=== PATIENT | female | born 1950 | race Caucasian/White ===

== ENCOUNTER 2016-09-20 12:19 | Emergency (ER) | payer BC ==
[2016-09-20 12:33] VITALS: RESP 18; TEMP 98.1
--- NOTE | 2016-09-20 13:35 | CT ---
EXAMINATION TYPE: CT brain [place] con DATE OF EXAM: 09/20/2016 COMPARISON: 02/09/2016 HISTORY: Fell backwards and struck back of head CT DLP: 1719 mGycm Automated exposure control for dose reduction was used. TECHNIQUE: CT scan of the head and cervical spine are performed without contrast. FINDINGS: There is no acute intracranial hemorrhage, mass effect, or midline shift identified. The ventricles and sulci are within normal limits in size. The globes are intact and the visualized sin uses are clear. Hyperostosis noted. Minimal nonspecific periventricular hypoattenuation. Noncontrast imaging artifact limits assessment spinal canal. Alignment demonstrates severe degenerati ve disc disease C5-C6 and C6-C7 with posterior spondylosis. Canal stenosis and foraminal encroachment suggested correlate with MRI. Odontoid intact. Multilevel facet arthropathy noted. IMPRESSION: 1. There is no acute fracture or dislocation evident in the cervical spine. 2. No acute intracranial hemorrhage, mass effect, or midline shift is seen.
--- NOTE | 2016-09-20 13:36 | ED ---
General Adult HPI - General Chief complaint: Head Injury Stated complaint: Fall/Head Injury Time Seen by Provider: 09/20/16 12:34 Source: patient, RN notes reviewed, old records reviewed Mode of arrival: ambulatory Limitations: no limitations - History of Present Illness Initial comments: This is a 66-year-old female here status post fall, 2 days post fall and hitting head. Patient's vitals conscious at the time out, just increase had neck pain since fall. No neurological changes. No nausea vomiting again. - Related Data Home Medications Medication Instructions Recorded Confirmed Ascorbic Acid [Vitamin C] 1,000 mg PO DAILY 10/31/15 09/20/16 Atorvastatin [Lipitor] 40 mg PO HS 10/31/15 09/20/16 Cholecalciferol [Vitamin D3] 1,000 unit PO DAILY 10/31/15 09/20/16 Diltiazem HCl [Cardizem Cd] 120 mg PO BID 10/31/15 09/20/16 Glimepiride [Amaryl] 2 mg PO DAILY 10/31/15 09/20/16 Losartan [Cozaar] 50 mg PO DAILY 10/31/15 09/20/16 metFORMIN HCL 1,000 mg PO BID 10/31/15 09/20/16 Aspirin [Adult Low Dose Aspirin EC] 81 mg PO HS 03/20/16 09/20/16 Clopidogrel [Plavix] 75 mg PO DAILY 03/20/16 09/20/16 Fiber Therapy 50 mg PO DAILY 03/20/16 09/20/16 Isosorbide Mononitrate ER [Imdur] 30 mg PO DAILY 03/20/16 09/20/16 Allergies Allergy/AdvReac Type Severity Reaction Status Date / Time hydrocodone [From [place]] Allergy Nausea & Verified 09/20/16 12:35 Vomiting Sulfa (Sulfonamide Allergy Itching,fev Verified 09/20/16 12:35 Antibiotics) er tramadol Allergy Hallucinati Verified 09/20/16 12:35 ons Review of Systems ROS Statement: Those systems with pertinent positive or pertinent negative responses have been documented in the HPI. ROS Other: All systems not noted in ROS Statement are negative. Past Medical History Past Medical History: Chest Pain / Angina, Diabetes Mellitus, Hyperlipidemia, Myocardial Infarction ([place]), Osteoarthritis ([place]) Additional Past Medical History / Comment(s): "heart spasms"-"small heart attack ", Last Myocardial Infarction Date:: 11/2015 History of Any Multi-Drug Resistant Organisms: None Reported Past Surgical History: Appendectomy, Cholecystectomy, Heart Catheterization, Hysterectomy, Joint Replacement, Orthopedic Surgery Additional Past Surgical History / Comment(s): arthroscopy left knee x3, rt hand joint replacement- ring finger, D&C, left knee replacement, left hand ganglion cyst Past Anesthesia/Blood Transfusion Reactions: Motion Sickness, Postoperative Nausea & Vomiting (PONV) Past Psychological History: No Psychological Hx Reported Smoking Status: Former smoker Past Alcohol Use History: Rare Past Drug Use History: None Reported - Past Family History Mother Family Medical History: No Reported History Sister(s) Family Medical History: Cancer, Deep Vein Thrombosis (DVT) General Exam Limitations: no limitations General appearance: alert, in no apparent distress Head exam: Present: atraumatic, normocephalic, normal inspection Eye exam: Present: normal appearance, PERRL, EOMI. Absent: scleral icterus, conjunctival injection, periorbital swelling ENT exam: Present: normal exam, mucous membranes moist Neck exam: Present: normal inspection. Absent: tenderness, meningismus, lymphadenopathy Respiratory exam: Present: normal lung sounds bilaterally. Absent: respiratory distress, wheezes, rales, rhonchi, stridor Cardiovascular Exam: Present: regular rate, normal rhythm, normal heart sounds. Absent: systolic murmur, diastolic murmur, rubs, gallop, clicks GI/Abdominal exam: Present: soft, normal bowel sounds. Absent: distended, tenderness, guarding, rebound, rigid Extremities exam: Present: normal inspection, full ROM, normal capillary refill. Absent: tenderness, pedal edema, joint swelling, calf tenderness Back exam: Present: normal inspection Neurological exam: Present: alert, oriented X3, CN II-XII intact Psychiatric exam: Present: normal affect, normal mood Skin exam: Present: warm, dry, intact, normal color. Absent: rash Course Vital Signs 09/20/16 12:30 Temperature 98.1 F Pulse Rate 72 Respiratory 18 Rate Blood Pressure 111/56 O2 Sat by Pulse 97 Oximetry Medical Decision Making - Medical Decision Making 66 female the ER for evaluation. Patient just reevaluation of headache. Headache status post fall, concussive like symptoms. CT negative for acute disease. Patient can be discharged home Disposition Clinical Impression: Closed head injury, Fall Disposition: HOME SELF-CARE Condition: Good Instructions: Concussion (ED) Referrals: Maurice Garcia MD [Primary Care Provider] - 1-2 days
[2016-09-20 13:49] VITALS: BP 101/49; PULSE 63
== END 2016-09-20 13:49 | disposition home or self-care (01) ==
LOC: EC 12:19
DX: S09.90XA Unspecified injury of head, initial encounter (principal); M54.2 Cervicalgia; E11.9 Type 2 diabetes mellitus without complications; E78.5 Hyperlipidemia, unspecified; I25.2 Old myocardial infarction; M19.90 Unspecified osteoarthritis, unspecified site; Z87.891 Personal history of nicotine dependence; Z79.84 Long term (current) use of oral hypoglycemic drugs; Z79.82 Long term (current) use of aspirin; Z79.01 Long term (current) use of anticoagulants; Z79.899 Other long term (current) drug therapy; Z88.2 Allergy status to sulfonamides; Z88.6 Allergy status to analgesic agent; Z88.5 Allergy status to narcotic agent; W01.10XA Fall on same level from slipping, tripping and stumbling with subsequent striking against unspecified object, initial encounter
CPT/HCPCS: 36415; 70450; 72125; 74177; 82565; 84520; 99284

== ENCOUNTER → 2016-09-20 | Outpatient (CLI) | payer BC ==
[2016-09-20 14:42] LABS: Blood Urea Nitrogen 28 mg/dL (7-17); Non-African American GFR(MDRD) 59 (>60 ml/min/1.73 sqM)
--- NOTE | 2016-09-20 16:11 | CT ---
EXAMINATION TYPE: CT abdomen pelvis w con DATE OF EXAM: 09/20/2016 COMPARISON: 02/14/2016 HISTORY: Follow up pancreatic cyst per patient CT DLP: 963.6 mGycm Automated exposure control for dose reduction was used. CONTRAST: CT scan of the abdomen pelvis is performed with IV Contrast, patient injected with 80 mL of Visipaque 320. FINDINGS- LUNG BASES- No significant abnormality is appreciated. LIVER/GB-postcholecystectomy changes. PANCREAS-hypodensity within the pancreatic head and uncinate process are stable. SPLEEN- No gross abnormality is seen. ADRENALS- No gross abnormality is seen. KIDNEYS/BLADDER- no hydronephrosis, or nephrolithiasis. Stable small hypodensities within both kidney s too small to accurately characterize by CT scan. BOWEL- no bowel dilatation. Normal appendix. LYMPH NODES- No greater than 1cm abdominal or pelvic lymph nodes are appreciated. OSSEOUS STRUCTURES-hypertrophic changes of the vertebral column.. OTHER- mild atherosclerotic changes of the vasculature. Aorta of normal caliber. No free fluid. Post hysterectomy changes noted. IMPRESSION- 1. Hypodensities within the pancreas are stable. No definite mass identified. Correlate clinically. F ollow-up as clinically warranted. 2. Tiny hypodensities in the kidneys too small to characterize but likely related to simple cysts. 3. Status post cholecystectomy.
== END | disposition home or self-care (01) ==
LOC: RADCTMAIN 13:58
PROVIDERS: ATTEND Surgery Plastic and Reconstructive Surgery
DX: R93.421 Abnormal radiologic findings on diagnostic imaging of right kidney (principal); R93.422 Abnormal radiologic findings on diagnostic imaging of left kidney; R93.8 Abnormal findings on diagnostic imaging of other specified body structures; Z90.49 Acquired absence of other specified parts of digestive tract
CPT/HCPCS: 82565; 84520; 74177; 36415; Q9967

== ENCOUNTER → 2016-12-05 | Outpatient (CLI) | payer BC ==
--- NOTE | 2016-12-06 09:21 | MM ---
Reason for exam: screening (asymptomatic). Last mammogram was performed 2 years ago. History: Patient is postmenopausal. Excisional biopsy of the left breast. Took estrogen for 15 years. Physical Findings: A clinical breast exam by your physician is recommended on an annual basis and results should be correlated with mammographic findings. MG Screening Mammo w CAD Bilateral CC, MLO, and XCCL view(s) were taken. XCCM view(s) were taken of the left breast. Prior study comparison: December 08, 2014, bilateral MG screening mammo w CAD. May 19, 2013, bilateral digital screening mammo w/CAD. There are scattered fibroglandular densities. Finding: There are typically benign round, diffuse/scattered and grouped calcifications in both breasts. There is a chronic nodularity in the left breast. There is no discrete abnormality. ASSESSMENT: Benign, BI-RAD 2 RECOMMENDATION: Routine screening mammogram of both breasts in 1 year.
== END | disposition home or self-care (01) ==
LOC: RADMAMWWP 10:48
PROVIDERS: ATTEND Family Medicine
DX: Z12.31 Encounter for screening mammogram for malignant neoplasm of breast (principal)

== ENCOUNTER → 2017-04-02 | Outpatient (CLI) | payer BC ==
[2017-04-02 12:17] LABS: Blood Urea Nitrogen 16 mg/dL (7-17); Non-African American GFR(MDRD) >60 (>60 ml/min/1.73 sqM)
--- NOTE | 2017-04-02 13:42 | CT ---
EXAMINATION TYPE: CT abdomen w con DATE OF EXAM: 04/02/2017 HISTORY: Follow up for abnormal CT of pancreas. CT DLP: 1327mGycm Automated Exposure Control for Dose Reduction was Utilized. CONTRAST: CT scan of the abdomen and pelvis is performed with oral and with IV Contrast, patient injected with 100ml mL of Omnipaque 300. Pancreatic protocol. COMPARISON: CT abdomen and pelvis September 20, 2016 FINDINGS: LUNG BASES: No significant abnormality is appreciated. LIVER/GB: Cholecystectomy clips are redemonstrated. PANCREAS: Pancreas is normal in size. No worrisome solid or cystic mass is clearly identified in the pancreas on current study with particular attention to head and uncinate process SPLEEN: No significant abnormality is seen. ADRENALS: No significant abnormality is seen. KIDNEYS: There are few scattered subcentimeter lesions throughout both kidneys redemonstrated too sma ll to further characterize but presumed benign. BOWEL: Oral contrast does not reach colonic level. No suspicious abnormality is seen. LYMPH NODES: No greater than 1cm abdominal lymph nodes are appreciated. OSSEOUS STRUCTURES: Mild multilevel anterior spurring is redemonstrated. OTHER: There is mild calcified plaque in aortic extending into iliac branch vessels IMPRESSION: No worrisome pancreatic mass identified.
== END | disposition home or self-care (01) ==
LOC: RADCTMAIN 11:45
PROVIDERS: ATTEND Family Medicine
DX: R93.5 Abnormal findings on diagnostic imaging of other abdominal regions, including retroperitoneum (principal)
CPT/HCPCS: 82565; 84520; 74160; 36415; Q9967

== ENCOUNTER → 2017-12-15 | Outpatient (CLI) | payer BC ==
--- NOTE | 2017-12-15 08:22 | MM ---
Reason for exam: screening (asymptomatic). Last mammogram was performed 1 year ago. History: Patient is postmenopausal. Excisional biopsy of the left breast. Took estrogen for 15 years. Physical Findings: A clinical breast exam by your physician is recommended on an annual basis and results should be correlated with mammographic findings. MG Screening Mammo w CAD Bilateral CC and MLO view(s) were taken. Prior study comparison: December 05, 2016, bilateral MG screening mammo w CAD. December 08, 2014, bilateral MG screening mammo w CAD. There are scattered fibroglandular densities. There are stable benign appearing punctate calcifications. No significant changes when compared with prior studies. ASSESSMENT: Benign, BI-RAD 2 RECOMMENDATION: Routine screening mammogram of both breasts in 1 year.
== END | disposition home or self-care (01) ==
LOC: RADMAMWWP 06:50
PROVIDERS: ATTEND Family Medicine
DX: Z12.31 Encounter for screening mammogram for malignant neoplasm of breast (principal)
CPT/HCPCS: 77067

== ENCOUNTER 2018-02-23 09:00 | Inpatient (IN) | payer BC, MEDICARE ==
[2018-02-23] MEDS ORDERED: SODIUM CHLORIDE 0.9% 500 ML 500 ML IV STA (09:04)
[2018-02-23] MEDS ORDERED: NITROGLYCERIN OINT 1 INCH/GM PACKET TOPICAL STA (09:04)
--- NOTE | 2018-02-23 09:09 | ED ---
General Adult HPI - General Stated complaint: poss STEMI Time Seen by Provider: 02/23/18 09:00 Source: RN notes reviewed - History of Present Illness Initial comments: This is a 67-year-old female presents emergency department with past medical history significant for diabetes and coronary artery disease high blood pressure high cholesterol. Patient states few hours prior to arrival she started having chest pain which was associated with shortness of breath nausea and diaphoresis. Patient states before EMS arrived she took nitroglycerin and it didn't seem to help her pain. Patient states over the weekend she was having some chest pain particular Friday night and it radiated to her back. Patient states those symptoms and certainly it resolved on the right. Patient states she has had a catheterization a couple years ago the toes she did have about a 30% blockage. Patient states currently her pain is much improved compared to earlier. Patient denies any abdominal pain. Patient denies any vomiting or diarrhea recently. Patient denies any recent fever chills or cough. Patient denies headache patient denies lightheadedness dizziness or nursing episode. - Related Data Home Medications Medication Instructions Recorded Confirmed Ascorbic Acid [Vitamin C] 1,000 mg PO DAILY 10/31/15 09/20/16 Atorvastatin [Lipitor] 40 mg PO HS 10/31/15 09/20/16 Cholecalciferol [Vitamin D3] 1,000 unit PO DAILY 10/31/15 09/20/16 Diltiazem HCl [Cardizem Cd] 120 mg PO BID 10/31/15 09/20/16 Glimepiride [Amaryl] 2 mg PO DAILY 10/31/15 09/20/16 Losartan [Cozaar] 50 mg PO DAILY 10/31/15 09/20/16 metFORMIN HCL 1,000 mg PO BID 10/31/15 09/20/16 Aspirin [Adult Low Dose Aspirin EC] 81 mg PO HS 03/20/16 09/20/16 Clopidogrel [Plavix] 75 mg PO DAILY 03/20/16 09/20/16 Fiber Therapy 50 mg PO DAILY 03/20/16 09/20/16 Isosorbide Mononitrate ER [Imdur] 30 mg PO DAILY 03/20/16 09/20/16 Allergies Allergy/AdvReac Type Severity Reaction Status Date / Time hydrocodone [From [place]] Allergy Nausea & Verified 09/20/16 12:35 Vomiting Sulfa (Sulfonamide Allergy Itching,fev Verified 09/20/16 12:35 Antibiotics) er tramadol Allergy Hallucinati Verified 09/20/16 12:35 ons Review of Systems ROS Statement: Those systems with pertinent positive or pertinent negative responses have been documented in the HPI. ROS Other: All systems not noted in ROS Statement are negative. Past Medical History Past Medical History: Chest Pain / Angina, Diabetes Mellitus, Hyperlipidemia, Myocardial Infarction ([place]), Osteoarthritis (OA) Additional Past Medical History / Comment(s): "heart spasms"-"small heart attack ", Last Myocardial Infarction Date:: 11/2015 History of Any Multi-Drug Resistant Organisms: None Reported Past Surgical History: Appendectomy, Cholecystectomy, Heart Catheterization, Hysterectomy, Joint Replacement, Orthopedic Surgery Additional Past Surgical History / Comment(s): arthroscopy left knee x3, rt hand joint replacement- ring finger, D&C, left knee replacement, left hand ganglion cyst Past Anesthesia/Blood Transfusion Reactions: Motion Sickness, Postoperative Nausea & Vomiting (PONV) Past Psychological History: No Psychological Hx Reported Smoking Status: Former smoker Past Alcohol Use History: Rare Past Drug Use History: None Reported - Past Family History Mother Family Medical History: No Reported History Sister(s) Family Medical History: Cancer, Deep Vein Thrombosis (DVT) General Exam - General Exam Comments Initial Comments: GENERAL: Patient is well-developed and well-nourished. Patient is nontoxic and well- hydrated and is in mild distress. ENT: Neck is soft and supple. No significant lymphadenopathy is noted. Oropharynx is clear. Moist mucous membranes. Neck has full range of motion without eliciting any pain. EYES: The sclera were anicteric and conjunctiva were pink and moist. Extraocular movements were intact and pupils were equal round and reactive to light. Eyelids were unremarkable. PULMONARY: Unlabored respirations. Good breath sounds bilaterally. No audible rales rhonchi or wheezing was noted. CARDIOVASCULAR: There is a regular rate and rhythm without any murmurs gallops or rubs. ABDOMEN: Soft and nontender with normal bowel sounds. No palpable organomegaly was noted. There is no palpable pulsatile mass. SKIN: Skin is clear with no lesions or rashes and otherwise unremarkable. NEUROLOGIC: Patient is alert and oriented x3. Cranial nerves II through XII are grossly intact. Motor and sensory are also intact. Normal speech, volume and content. Symmetrical smile. MUSCULOSKELETAL: Normal extremities with adequate strength and full range of motion. No lower extremity swelling or edema. No calf tenderness. LYMPHATICS: No significant lymphadenopathy is noted PSYCHIATRIC: Normal psychiatric evaluation. Normal interpersonal interactions appears functionally intact in deals appropriately with others. No signs of depression. No signs of anxiety. Course Vital Signs 02/23/18 02/23/18 09:06 09:20 Temperature 98.1 F Pulse Rate 72 72 Respiratory 20 18 Rate Blood Pressure 153/81 140/74 O2 Sat by Pulse 100 100 Oximetry Medical Decision Making - Medical Decision Making Patient's EKG shows a normal sinus rhythm at [address] interval is 172 QRS is 98 QT interval is 42 QTC is 4:30. Patient's EKG does show some slight ST segment depression in 1 and aVL. Patient's EKG in route showed ST segment elevation in inferior leads with depression in 1 and aVL on a repeat EKG those elevations had diminished and were much improved. Patient's pain also wasn't with this time patient had yet to arrive. I spoke with Dr. Zelaya when I got the EKG via EMS. He did not want a STEMI called at this time. Patient received heparin in the emergency department as well as Lipitor. Patient was taken up to the catheterization lab Chest x-ray showed no acute abnormality. Critical Care Time Critical Care Time: Yes Total Critical Care Time: 35 Disposition Clinical Impression: STEMI (ST elevation myocardial infarction) Disposition: ADMITTED IP TO THIS [facility] Time of Disposition: 09:16
[2018-02-23] MEDS ORDERED: HEPARIN SODIUM,PORCINE 5,000 UNIT/ML 1 ML VIAL IV STA (09:16)
[2018-02-23] MEDS ORDERED: ATORVASTATIN 80 MG TAB PO STA (09:16)
--- NOTE | 2018-02-23 09:27 | P.CRDCN ---
History of Present Illness Consult date: 02/23/18 Requesting physician: Garima Tam Consult reason: chest pain Chief complaint: Chest pain History of present illness: This is a pleasant 67-year-old female with known history of diabetes, hypertension, hyperlipidemia, who underwent knee surgery in 2016 subsequent to that had a non-Q-wave [place] and underwent a cardiac catheterization, the cath at that time revealed a 20-30% narrowing of the mid LAD, the circumflex and RCA were normal. It was felt at that time that her pain in troponin abnormality could be secondary to vasospasm or the remote possibility of plaque rupture could be considered. She presents to the hospital on this occasion with symptoms of severe chest pressure and heaviness with associated diaphoresis and nausea, symptoms started early this morning. She rated her pain at at 20 this morning. She does state that over the past few days she has been intermittently experiencing symptoms of shortness of breath and feeling her heart racing, and also having intermittent angina, even at rest. The EKG performed by the EMS showed a normal sinus rhythm with ST elevation in the inferior leads as well as inferior Q waves, she was also noted on that EKG to have ST depression in her lateral leads. Subsequent EKG did show some improvement in the ST elevation as well as in the ST depression. An EKG performed in the emergency room showed normal sinus rhythm with complete resolution of these changes. At the time of my examination in the emergency room, patient had been given sublingual nitroglycerin as well as aspirin, and heparin bolus. Her pain was now a 2 on the pain scale. Because of the patient' s symptoms and associated EKG changes she was advised to undergo cardiac catheterization, the risks and the benefits were explained to the patient in detail and she is willing to proceed. Past Medical History Past Medical History: Chest Pain / Angina, Diabetes Mellitus, Hyperlipidemia, Myocardial Infarction ([place]), Osteoarthritis (OA) Additional Past Medical History / Comment(s): "heart spasms"-"small heart attack ", Last Myocardial Infarction Date:: 11/2015 History of Any Multi-Drug Resistant Organisms: None Reported Past Surgical History: Appendectomy, Cholecystectomy, Heart Catheterization, Hysterectomy, Joint Replacement, Orthopedic Surgery Additional Past Surgical History / Comment(s): arthroscopy left knee x3, rt hand joint replacement- ring finger, D&C, left knee replacement, left hand ganglion cyst Past Anesthesia/Blood Transfusion Reactions: Motion Sickness, Postoperative Nausea & Vomiting (PONV) Past Psychological History: No Psychological Hx Reported Smoking Status: Former smoker Past Alcohol Use History: Rare Past Drug Use History: None Reported - Past Family History Mother Family Medical History: No Reported History Sister(s) Family Medical History: Cancer, Deep Vein Thrombosis (DVT) Medications and Allergies Home Medications Medication Instructions Recorded Confirmed Type Ascorbic Acid [Vitamin C] 1,000 mg PO DAILY 10/31/15 09/20/16 History Atorvastatin [Lipitor] 40 mg PO HS 10/31/15 09/20/16 History Cholecalciferol [Vitamin D3] 1,000 unit PO DAILY 10/31/15 09/20/16 History Diltiazem HCl [Cardizem Cd] 120 mg PO BID 10/31/15 09/20/16 History Glimepiride [Amaryl] 2 mg PO DAILY 10/31/15 09/20/16 History Losartan [Cozaar] 50 mg PO DAILY 10/31/15 09/20/16 History metFORMIN HCL 1,000 mg PO BID 10/31/15 09/20/16 History Aspirin [Adult Low Dose Aspirin EC] 81 mg PO HS 03/20/16 09/20/16 History Clopidogrel [Plavix] 75 mg PO DAILY 03/20/16 09/20/16 History Fiber Therapy 50 mg PO DAILY 03/20/16 09/20/16 History Isosorbide Mononitrate ER [Imdur] 30 mg PO DAILY 03/20/16 09/20/16 History Allergies Allergy/AdvReac Type Severity Reaction Status Date / Time hydrocodone [From [place]] Allergy Nausea & Verified 09/20/16 12:35 Vomiting Sulfa (Sulfonamide Allergy Itching,fev Verified 09/20/16 12:35 Antibiotics) er tramadol Allergy Hallucinati Verified 09/20/16 12:35 ons Physical Exam Vitals: Vital Signs Temp Pulse Resp BP Pulse Ox 02/23/18 09:06 98.1 F 72 20 153/81 100 Intake and Output 02/22/18 02/23/18 02/23/18 22:59 06:59 14:59 Other: Weight 77.1 kg PHYSICAL EXAMINATION: GENERAL: 67-year-old female in no acute distress at the time of my examination HEENT: Head is atraumatic, normocephalic. Pupils equal, round. Sclera anicteric. Conjunctiva are clear. Mucous membranes of the mouth are moist. Neck is supple. There is no elevated jugular venous pressure. No carotid bruit. HEART EXAMINATION: Heart S1, S2 normal. No murmur or gallop heard. CHEST EXAMINATION: Lungs are clear to auscultation and precussion. No chest wall tenderness is noted on palpation or with deep breathing. ABDOMEN: Soft, nontender. Bowel sounds are heard. No organomegaly noted. EXTREMITIES: 2+ peripheral pulses with no evidence of peripheral edema and no calf tenderness noted. NEUROLOGIC patient is awake, alert and oriented ?-3. . Results Current Medications Generic Name Dose Route Start Last Admin Trade Name Freq PRN Reason Stop Dose Admin Sodium Chloride 500 mls @ 999 mls/hr 02/23/18 09:04 02/23/18 09:15 Saline 0.9% IV 02/23/18 09:34 999 mls/hr .Q31M STA Administration Intake and Output 02/22/18 02/23/18 02/23/18 22:59 06:59 14:59 Other: Weight 77.1 kg Patient Weight 02/24/18 06:59 Weight 77.1 kg EKG Interpretations (text) Initial EKG showed normal sinus rhythm with mild inferior ST elevation, inferior Q waves, and lateral ST depression. Assessment and Plan Plan: Assessment and plan #1 symptoms of severe chest discomfort with associated EKG changes suggesting possible ST elevation [place] in the inferior region. #2 history of non-Q-wave myocardial infarction, cardiac catheterization performed in 2016 revealed an LAD lesion of 20-30%, it was felt at that time and may be secondary to vasospasm or plaque rupture. Patient did have 2 cardiac catheterizations performed prior to that which were normal. #3 hypertension #4 diabetes #5 hyperlipidemia Plan Patient was advised to undergo urgent cardiac catheterization, the risks and benefits were explained to the patient in detail, she will be taken directly to the cardiac catheterization lab and further recommendations then will be made based on the findings. We will obtain an echocardiogram with Doppler study. Patient did receive aspirin, heparin bolus, and Lipitor 80. DNP note has been reviewed, I agree with a documented findings and plan of care. Patient was seen and examined.
[2018-02-23] MEDS ORDERED: fentaNYL (PF) 50 MCG/ML 2 ML AMP ONE (09:31)
[2018-02-23] MEDS ORDERED: MIDAZOLAM 2 MG/2 ML VIAL IVP ONE (09:31)
[2018-02-23] MEDS ORDERED: fentaNYL (PF) 50 MCG/ML 2 ML AMP IVP ONE (09:33)
[2018-02-23] MEDS ORDERED: LIDOCAINE 1% INJ 10MG/ML (20 ML MDV) SQ ONE (09:33)
[2018-02-23] MEDS ORDERED: IV FLUID CONTINUATION 800 ML IV ONE (09:34)
--- NOTE | 2018-02-23 09:42 | XR ---
EXAMINATION TYPE: XR chest 1V portable DATE OF EXAM: 02/23/2018 Comparison: 02/09/2016 Clinical History: 67-year-old female Chest Pain Findings: Heart upper limits of normal in size. Atherosclerotic arch calcifications. Some patchy medial right b asilar opacity is present. No other consolidation or pleural effusion. Impression: Some patchy medial right basilar atelectasis or early infiltrate.
[2018-02-23] MEDS ORDERED: MIDAZOLAM 2 MG/2 ML VIAL ONE (09:49)
[2018-02-23] MEDS ORDERED: IOPAMIDOL-370 50ML BTL INJ ONE (09:54)
[2018-02-23] MEDS ORDERED: IOPAMIDOL-370 125ML BTL INJ ONE (09:54)
[2018-02-23] MEDS ORDERED: RX INFO: IV CONTRAST WAS GIVEN 1 EACH MISC MISCELLANE PRN (10:03)
[2018-02-23 10:04] LABS: HCT 39.2 % (34.0-46.0); MCH 31.3 pg (25.0-35.0); MCHC 33.2 g/dL (31.0-37.0); MCV 94.5 fL (80.0-100.0); Mean Platelet Volume 7.9; Platelet Count 329 k/uL (150-450); RBC 4.15 m/uL (3.80-5.40); RDW 12.3 % (11.5-15.5); WBC 12.3 k/uL (3.8-10.6)
[2018-02-23] MEDS ORDERED: NITROGLYCERIN-D5W PMX 50 MG in DEXTROSE/WATER 1 250ML.BAG IV ONE (10:04)
[2018-02-23] MEDS ORDERED: LIDOCAINE 1% INJ 10MG/ML (20 ML MDV) ONE (10:16)
[2018-02-23 10:21] LABS: Partial Thromboplastin Time 23.5 sec (22.0-30.0); Prothrombin Time 9.9 sec (9.0-12.0)
[2018-02-23 10:26] LABS: ALT 38 U/L (9-52); AST 25 U/L (14-36); Alkaline Phosphatase 68 U/L (38-126); Anion Gap 12 mmol/L; Blood Urea Nitrogen 19 mg/dL (7-17); Calcium 9.7 mg/dL (8.4-10.2); Carbon Dioxide 26 mmol/L (22-30); Chloride 101 mmol/L (98-107); Glucose 330 mg/dL (74-99); Potassium 4.2 mmol/L (3.5-5.1); Sodium 139 mmol/L (137-145); Total Bilirubin 1.2 mg/dL (0.2-1.3)
--- NOTE | 2018-02-23 10:39 | CC ---
CARDIAC CATHETERIZATION REPORT Mrs. Samano is a 67-year-old female who came to the emergency room with a prolonged episode of chest discomfort, initial EKG done by the EMS showed ST-segment elevation in the inferior leads. Subsequent EKG while she came to the emergency room was normalized and her pain was normalized. This patient has a past history of intermittent chest discomfort with elevated troponin in the past. Cardiac catheterization revealed minimal disease in the LAD and it was thought that the patient is having a spasm and patient has been treated with medications. In view of the definite EKG changes, patient was recommended to have urgent cardiac catheterization for definitive diagnosis. PROCEDURE: The right groin is prepped and draped in the usual manner and the skin is infiltrated with 2% Xylocaine. The right femoral artery is entered using Seldinger technique. A #6- Armenian sheath was placed in. Selective coronary angiography was then performed in multiple projections and the left ventriculography was obtained. Patient tolerated the procedure well. Moderate sedation was use; the sedation time is 22 minutes. HEMODYNAMICS: Left ventricular end-diastolic pressure is 12 to 16 mmHg prior to angiography. No gradient is noted across the aortic valve. SELECTIVE CORONARY ANGIOGRAPHY: Left main coronary artery is normal and patent. LAD is a good caliber blood vessel and gives rise to the diagonal branch. The mid LAD has a 20%-30% stenosis. Circumflex coronary artery is codominant in distribution and gives rise to a good size of obtuse marginal branch. Circumflex coronary artery and its branches are normal. The right coronary artery is dominant in distribution, gives rise to the posterior descending artery and does not eat. There is no evidence of any blockage. Left ventriculography was performed which showed mid and basal inferior wall hypokinesia. FINAL IMPRESSION: This patient presented with chest pain and ST-segment elevation, which has resolved. It appears that the patient is having intermittent episodes of the coronary vasospasm. There is definite an inferior wall motion abnormality on the left ventriculography. We will intensively treat with anti-spasmodic medications and as well as Lipitor. MMODL / IJN: [id number] /
[2018-02-23 10:41] LABS: Creatine Kinase MB 0.5 ng/mL (0.0-2.4); Troponin I 0.027 ng/mL (0.000-0.034)
[2018-02-23 12:06] LABS: Glucose,Whole Blood 215 mg/dL (75-99)
[2018-02-23] MEDS: CLOPIDOGREL 75 MG TAB PO SCH (12:32)
[2018-02-23] MEDS: GLIMEPIRIDE 2 MG TAB PO SCH (13:11)
--- NOTE | 2018-02-23 15:38 | P.HPIM ---
History of Present Illness H&P Date: 02/23/18 Chief Complaint: Chest pain This is a pleasant 67-year-old female patient of Dr. Manfred Garcia BC per week. She has underlying history of hypertension diabetes mellitus type 2, hyperlipidemia, CAD nonocclusive disease, has coronary spasm/Prinzmetal angina admitted through the emergency room secondary to chest discomfort this happened while patient was resting for the night, chest pain occurred as if something was kicking her chest, lasted for one hour, patient chronically is on long- acting isosorbide, and does not carry sublingual nitroglycerin. Patient was subsequently seen in the emergency room secondary to lingering chest discomfort , this is nonsedating in character, nontender patient including food, and does not have any aspirate of events no cough no fever no chills. Patient also has accompanying sweats and headache, Emergency room, EKG was abnormal with ST segment elevation in inferior leads as well as Q waves in the inferior leads, that was initially obtained by the EMS, when seen in emergency room, EKG showed normal sinus rhythm with complete resolution of these changes. Patient was given sublingual nitroglycerin for which the pain was relieved down to a 4 out of 10 scale, and was started on heparin bolus nitroglycerin drip and aspirin. She underwent cardiac catheterization based on the findings and is admitted for unstable angina symptoms Cardiac cath performed 02/23/2018 shows left main coronary segment are normal and patent, LAD is good, mid LAD has 20-30% stenosis, circumflex of disease, RCA of disease, posterior descending artery disease, there is mild mid and basal inferior wall hypokinesia. Cardiology has recommended intensive medical treatment with anti-spasmodic medications as well as statins. Review of Systems Constitutional: Reports as per HPI, Denies anorexia, Denies chills, Denies chronic headaches, Denies chronic pain, Denies daytime sleepiness, Denies fatigue, Denies fever, Denies lethargy, Denies malaise, Denies night sweats, Denies poor appetite, Denies sweats, Denies weakness, Denies weight gain, Denies weight loss Ears, nose, mouth and throat: Reports as per HPI, Denies ant. neck pain, Denies bleeding gums, Denies dental pain, Denies dysphagia, Denies epistaxis, Denies headache, Denies hoarseness, Denies mouth pain, Denies nasal congestion, Denies nasal discharge, Denies neck fullness/pressure, Denies neck lump, Denies nose pain, Denies odynophagia, Denies post-nasal drip, Denies sinus pain, Denies sinus pressure, Denies swelling in mouth, Denies swelling in throat, Denies sore throat, Denies vertigo, Denies voice changes Cardiovascular: Reports as per HPI, Reports chest pain, Denies claudication, Denies decreased exercise tolerance, Denies dyspnea on exertion, Denies edema, Denies high blood pressure, Denies irregular heart beat, Denies leg edema, Denies lightheadedness, Denies orthopnea, Denies palpitations, Denies paroxysmal nocturnal dyspnea, Denies phlebitis, Denies rapid heart beat, Denies shortness of breath, Denies syncope Respiratory: Reports as per HPI, Denies congestion, Denies cough, Denies cough with sputum, Denies dyspnea, Denies excessive sputum, Denies hemoptysis, Denies home oxygen, Denies pain, Denies pain on inspiration, Denies pleurisy, Denies respiratory infections, Denies sleep apnea, Denies snoring, Denies wheezing Gastrointestinal: Reports as per HPI, Denies abdominal pain, Denies belching, Denies bloating, Denies BRBPR, Denies change in bowel habits, Denies coffee ground emesis, Denies constipation, Denies diarrhea, Denies dyspepsia, Denies early satiety, Denies excessive gas, Denies heartburn, Denies hematemesis, Denies hematochezia, Denies indigestion, Denies jaundice, Denies lactose intolerance, Denies loss of appetite, Denies melena, Denies nausea, Denies vomiting Genitourinary: Reports as per HPI, Denies abnormal vaginal bleeding, Denies decreased libido, Denies difficulty conceiving, Denies difficulty voiding, Denies dysmenorrhea, Denies dyspareunia, Denies dysuria, Denies flank pain, Denies genital sores, Denies hematuria, Denies hot flashes, Denies incomplete emptying, Denies kidney stones, Denies menorrhagia, Denies mixed incontinence, Denies nocturia, Denies pelvic pain, Denies post void dribbling, Denies , Denies prolapse symptoms, Denies stress incontinence, Denies urge incontinence , Denies urgency, Denies urinary frequency, Denies vaginal discharge, Denies vaginal dryness, Denies vaginal itching, Denies vaginal odor Menstruation: Reports as per HPI, Reports postmenopausal, Denies amenorrhea, Denies amenorrhea on BC, Denies currently menstrual, Denies cycle < 21 days, Denies cycle > 35 days, Denies cycle variable, Denies menses 1-7 days, Denies menses 8 or > days, Denies menses variable, Denies period heavy, Denies period light, Denies period normal, Denies period spotting, Denies post hysterectomy, Denies premenarcheal Musculoskeletal: Reports as per HPI, Denies arm numbness/tingling, Denies atrophy, Denies fractures, Denies frequent falls, Denies gait dysfunction, Denies hot joints, Denies leg numbness/tingling, Denies limitation of motion, Denies loss of height, Denies low back pain, Denies morning stiffness, Denies muscle cramps, Denies muscle weakness, Denies myalgias, Denies neck pain, Denies neck stiffness, Denies prior amputations, Denies redness of joints, Denies shooting arm pain, Denies shooting leg pain Integumentary: Reports as per HPI, Reports rash (None) Neurological: Reports as per HPI, Denies aphasia, Denies ataxia, Denies balance difficulties, Denies burning pain, Denies change in mentation, Denies change in smell/taste, Denies change in speech, Denies confusion, Denies convulsions, Denies double vision, Denies gait dysfunction, Denies head injury, Denies headaches, Denies hearing difficulties, Denies lack of coordination, Denies loss of vision, Denies memory loss, Denies migraines, Denies motor disturbance, Denies numbness, Denies paralysis, Denies paresthesias, Denies seizures, Denies sensory deficit, Denies spasticity, Denies syncope, Denies tic, Denies tingling , Denies transient paralysis, Denies tremors, Denies vertigo, Denies weakness, Denies visual changes Psychiatric: Reports as per HPI, Denies anxiety, Denies anxiety attacks, Denies change in appetite, Denies change in sleep habits, Denies confusion, Denies depression, Denies difficulty concentrating, Denies disorientation, Denies hallucinations, Denies hopelessness, Denies hypersomnia, Denies insomnia, Denies irritability, Denies memory loss, Denies mood swings, Denies paranoia, Denies sadness/tearfulness, Denies sleep disturbances, Denies suicidal ideation Endocrine: Reports as per HPI Hematologic/Lymphatic: Reports as per HPI Allergic/Immunologic: Reports as per HPI, Denies allergic rhinitis, Denies anaphylaxis, Denies angioedema, Denies gluten intolerance, Denies persistent infections, Denies seasonal allergies, Denies urticaria, Denies wheezing Past Medical History Past Medical History: Coronary Artery Disease (CAD), Chest Pain / Angina, Diabetes Mellitus, Eye Disorder, Hyperlipidemia, Hypertension, Myocardial Infarction (CT), Osteoarthritis (OA) Additional Past Medical History / Comment(s): 11/[address], NIDDM type II, arthritis multiple joints, bilateral cataracts starting. Last Myocardial Infarction Date:: 11/2015 History of Any Multi-Drug Resistant Organisms: None Reported Past Surgical History: Appendectomy, Bladder Surgery, Cholecystectomy, Heart Catheterization, Hysterectomy, Joint Replacement, Orthopedic Surgery Additional Past Surgical History / Comment(s): Cardiac caths, arthroscopy left knee x3, total left knee arthroplasty, rt hand ring and thumb joint replacements , D&C, multiple ganglion cystectomies, diagnostic laparoscopy with lysis of adhesions, colonoscopies and last one had benign polypecotmy, bladder suspension. Past Anesthesia/Blood Transfusion Reactions: Motion Sickness, Postoperative Nausea & Vomiting (PONV) Smoking Status: Former smoker - Past Family History Mother Family Medical History: Dementia Additional Family Medical History / Comment(s): Mother of dementia at the age of 92 yrs. There were several family members on her side with dementia. Sister(s) Family Medical History: Cancer, Deep Vein Thrombosis (DVT) Additional Family Medical History / Comment(s): Pt had 2 sisters with DVTs Father Family Medical History: Myocardial Infarction (CT) Additional Family Medical History / Comment(s): Father of a CT at the age of 63 yrs. Father's 7 siblings all had heart disease/MIs Son(s) Family Medical History: No Reported History Medications and Allergies Home Medications Medication Instructions Recorded Confirmed Type Ascorbic Acid [Vitamin C] 1,000 mg PO DAILY 10/31/15 02/23/18 History Atorvastatin [Lipitor] 40 mg PO HS 10/31/15 02/23/18 History Cholecalciferol [Vitamin D3] 1,000 unit PO DAILY 10/31/15 02/23/18 History Diltiazem HCl [Cardizem Cd] 120 mg PO DAILY 10/31/15 02/23/18 History Glimepiride [Amaryl] 2 mg PO DAILY 10/31/15 02/23/18 History Losartan [Cozaar] 50 mg PO DAILY 10/31/15 02/23/18 History metFORMIN HCL 1,000 mg PO BID 10/31/15 02/23/18 History Aspirin [Adult Low Dose Aspirin EC] 81 mg PO HS 03/20/16 02/23/18 History Fiber Therapy 1 tab PO DAILY 03/20/16 02/23/18 History Isosorbide Mononitrate ER [Imdur] 30 mg PO DAILY 03/20/16 02/23/18 History Triamcinolone 0.1% Cream [Kenalog 1 applicatio TOPICAL TID 02/23/18 02/23/18 History 0.1% Cream] Allergies Allergy/AdvReac Type Severity Reaction Status Date / Time hydrocodone [From [place]] Allergy Nausea & Verified 09/20/16 12:35 Vomiting Sulfa (Sulfonamide Allergy Itching,fev Verified 09/20/16 12:35 Antibiotics) er tramadol Allergy Hallucinati Verified 09/20/16 12:35 ons Physical Exam Vitals: Vital Signs Temp Pulse Pulse Resp BP BP Pulse Ox 02/23/18 13:45 66 20 102/65 97 02/23/18 12:45 67 20 102/62 97 02/23/18 12:15 74 20 106/60 97 02/23/18 11:45 67 20 106/64 96 02/23/18 11:30 70 20 119/70 96 02/23/18 11:15 73 20 119/71 98 02/23/18 11:00 98.3 F 71 20 110/61 96 02/23/18 10:42 71 16 128/58 98 02/23/18 10:27 68 16 115/61 98 02/23/18 10:22 62 16 116/59 97 02/23/18 10:17 66 16 118/60 96 02/23/18 10:13 78 16 116/57 96 02/23/18 09:20 72 18 140/74 100 02/23/18 09:06 98.1 F 72 20 153/81 100 Intake and Output 02/22/18 02/23/18 02/23/18 22:59 06:59 14:59 Intake Total 615 Output Total 200 Balance 415 Intake: IV 75 Intake, IV Titration 300 Amount Sodium Chloride 0.9% 1, 300 000 ml @ 75 mls/hr IV . [id number] SHANIQUE Rx#:[id number] Oral 240 Output: Urine 200 Other: Weight 77.1 kg - Constitutional General appearance: cooperative, no acute distress - EENT Eyes: anicteric sclerae, EOMI, PERRLA, poor dentition, normal appearance ENT: NA/AT, normal oropharynx - Neck Neck: normal ROM - Respiratory Respiratory: bilateral: CTA, negative: diminished, dullness - Cardiovascular Rhythm: regular Heart sounds: normal: S1, S2 Abnormal Heart Sounds: no systolic murmur, no diastolic murmur, no rub, no S3 Gallop, no S4 Gallop, no click, no other - Gastrointestinal General gastrointestinal: normal bowel sounds, soft - Integumentary Integumentary: decreased turgor, normal - Neurologic Neurologic: CNII-XII intact - Musculoskeletal Musculoskeletal: gait normal, strength equal bilaterally - Psychiatric Psychiatric: A&O x's 3, appropriate affect, intact judgment & insight Results CBC & Chem 7: 02/23/18 09:12 02/23/18 09:12 Labs: Abnormal Lab Results - Last 24 Hours (Table) 02/23/18 02/23/18 02/23/18 Range/Units 09:12 09:12 11:53 WBC 12.3 H (3.8-10.6) k/uL BUN 19 H (7-17) mg/dL Glucose 330 H (74-99) mg/dL POC Glucose (mg/dL) 215 H (75-99) mg/dL Thrombosis Risk Factor Assmnt - DVT/VTE Prophylaxis DVT/VTE Prophylaxis: Pharmacologic Prophylaxis ordered - Choose All That Apply Any of the Below Risk Factors Present?: Yes Each Factor Represents 1 point: Acute CT, Obesity (BMI >25) Other Risk Factors: Yes Each Risk Factor Represents 2 Points: Age 61-74 years Each Risk Factor Represents 3 Points: Family history of DVT/PE Other congenital or acquired thrombophilia - If yes, enter type in comment: No Thrombosis Risk Factor Assessment Total Risk Factor Score: 7 Thrombosis Risk Factor Assessment Level: High Risk Assessment and Plan Plan: 1. suspected ST elev myocardial infarction, with urgent cardiac cath showing 20-30% LAD lesion on 02/23/2018 see report above,, troponins are marginally elevated, continue on IV heparin, Lipitor 80, and aspirin. Obtain echocardiogram. Patient is not on beta blockers, she is on diltiazem most likely for the prevention of vasospastic component, 2. Diabetes mellitus type 2 with other specified complications of hyperglycemia, currently on metformin, and glimepiride 2 mg daily continue IV hydration, correctional scale, hemoglobin A1c to be obtained, before meals at bedtime blood sugars 3 history of Prinzmetal angina and spasm coronary artery: On maintenance Imdur 30 mg daily patient is not on beta danilo coming in she is on diltiazem 120 increase it to 240 twice a day by cardiology, will discuss with cardiology regarding beta danilo use 4 hypertension: Well controlled on losartan 50 and diltiazem 120 mg daily now increased to 240 twice a day per cardiology 5 Diabetes: Patient remain on metformin 1000 mg twice a day and Amaryl 2 mg daily. 6 hyperlipidemia: Increase on Lipitor 80 mg daily. 7 GI prophylaxis: Patient be on Pepcid 20 mg daily. 8 DVT prophylaxis: Patient has been on full aspirin per orthopedic protocol. CODE STATUS: Full code.
[2018-02-23 16:32] LABS: Glucose,Whole Blood 93 mg/dL (75-99)
[2018-02-23] MEDS: INSULIN ASPART 100 UNIT/ML 1 ML 10 ML VIAL SQ SCH (16:41)
[2018-02-23 20:30] LABS: Glucose,Whole Blood 187 mg/dL (75-99)
[2018-02-23] MEDS ORDERED: ASPIRIN 81 MG PO SCH (21:00)
[2018-02-23] MEDS ORDERED: ATORVASTATIN 40 MG TAB PO SCH (21:00)
[2018-02-23] MEDS: SODIUM CHLORIDE 0.9% 1,000 ML IV SCH (21:07)
[2018-02-23] MEDS: FAMOTIDINE 20 MG TAB PO SCH (21:17)
[2018-02-23] MEDS: DILTIAZEM CD 120 MG CAP.ER.24H PO SCH (21:17)
[2018-02-23] MEDS: ISOSORBIDE MONONITRATE ER 30 MG TAB.ER.24H PO SCH (21:18)
[2018-02-24] MEDS: SODIUM CHLORIDE 0.9% 1,000 ML IV SCH (02:07)
[2018-02-24 06:00] LABS: Glucose,Whole Blood 173 mg/dL (75-99)
[2018-02-24 06:17] LABS: Basophils % (A) 0 %; Eosinophils # (A) 0.3 k/uL (0-0.7); Eosinophils % (A) 3 %; HCT 36.7 % (34.0-46.0); HGB 12.4 gm/dL (11.4-16.0); Lymphocytes # (A) 2.8 k/uL (1.0-4.8); Lymphocytes % (A) 33 %; MCH 31.6 pg (25.0-35.0); MCHC 33.7 g/dL (31.0-37.0); MCV 93.9 fL (80.0-100.0); Mean Platelet Volume 7.3; Monocytes # (A) 0.5 k/uL (0-1.0); Monocytes % (A) 6 %; Neutrophils # (A) 4.9 k/uL (1.3-7.7); Neutrophils % (A) 56 %; Platelet Count 301 k/uL (150-450); RBC 3.91 m/uL (3.80-5.40); RDW 12.3 % (11.5-15.5); WBC 8.7 k/uL (3.8-10.6)
[2018-02-24 06:47] LABS: Anion Gap 9 mmol/L; Blood Urea Nitrogen 14 mg/dL (7-17); Calcium 9.2 mg/dL (8.4-10.2); Carbon Dioxide 23 mmol/L (22-30); Chloride 106 mmol/L (98-107); Glucose 163 mg/dL (74-99); Lipase 73 U/L (23-300); Potassium 4.4 mmol/L (3.5-5.1); Sodium 138 mmol/L (137-145)
[2018-02-24] MEDS: INSULIN ASPART 100 UNIT/ML 1 ML 10 ML VIAL SQ SCH ×2 (06:47→12:32)
[2018-02-24] MEDS: GLIMEPIRIDE 2 MG TAB PO SCH (06:51)
[2018-02-24] MEDS: FAMOTIDINE 20 MG TAB PO SCH (08:52)
[2018-02-24] MEDS: DILTIAZEM CD 120 MG CAP.ER.24H PO SCH (08:52)
[2018-02-24] MEDS: CLOPIDOGREL 75 MG TAB PO SCH (08:52)
[2018-02-24] MEDS: ISOSORBIDE MONONITRATE ER 30 MG TAB.ER.24H PO SCH (08:52)
[2018-02-24] MEDS ORDERED: LOSARTAN 50 MG TAB PO SCH (09:00)
[2018-02-24] MEDS ORDERED: amLODIPine 5 MG TAB PO SCH (09:00)
[2018-02-24 10:44] VITALS: RESP 20
[2018-02-24 11:49] VITALS: BP 112/58; PULSE 70; TEMP 97.9
[2018-02-24 11:56] LABS: Glucose,Whole Blood 113 mg/dL (75-99)
[2018-02-24 11:57] LABS: Hemoglobin A1C 6.7 % (4.0-6.0)
--- NOTE | 2018-02-24 16:31 | P.PN ---
Subjective Progress Note Date: 02/24/18 This is a pleasant 67-year-old female with known history of diabetes, hypertension, hyperlipidemia, who underwent knee surgery in 2016 subsequent to that had a non-Q-wave NV and underwent a cardiac catheterization, the cath at that time revealed a 20-30% narrowing of the mid LAD, the circumflex and RCA were normal. It was felt at that time that her pain in troponin abnormality could be secondary to vasospasm or the remote possibility of plaque rupture could be considered. She presents to the hospital on this occasion with symptoms of severe chest pressure and heaviness with associated diaphoresis and nausea, symptoms started early this morning. She rated her pain at at 20 this morning. She does state that over the past few days she has been intermittently experiencing symptoms of shortness of breath and feeling her heart racing, and also having intermittent angina, even at rest. The EKG performed by the EMS showed a normal sinus rhythm with ST elevation in the inferior leads as well as inferior Q waves, she was also noted on that EKG to have ST depression in her lateral leads. Subsequent EKG did show some improvement in the ST elevation as well as in the ST depression. An EKG performed in the emergency room showed normal sinus rhythm with complete resolution of these changes. At the time of my examination in the emergency room, patient had been given sublingual nitroglycerin as well as aspirin, and heparin bolus. Her pain was now a 2 on the pain scale. Because of the patient' s symptoms and associated EKG changes she was advised to undergo cardiac catheterization, the risks and the benefits were explained to the patient in detail and she is willing to proceed. 02/24/2018 Patient was taken directly to the cardiac catheterization lab yesterday, it appears that the patient was having intermittent episodes of coronary vasospasm , no obstructive coronary artery disease. Postprocedure her dose of Cardizem was doubled as well as her dose of Imdur. She was seen and examined this morning, denied any chest pain or difficulty in breathing. She will be discharged home today with these medications as well as sublingual nitroglycerin. Objective - Vital Signs Vital signs: Vital Signs Temp 97.9 F 02/24/18 11:48 Pulse 70 02/24/18 11:48 Resp 20 02/24/18 11:48 BP 112/58 02/24/18 11:48 Pulse Ox 95 02/24/18 11:48 Intake & Output 02/23/18 02/24/18 02/24/18 18:59 06:59 18:59 Intake Total 855 360 Output Total 201 Balance 654 360 Weight 77.1 kg 75.2 kg Intake: IV 75 Intake, IV Titration 300 Amount Sodium Chloride 0.9% 1, 300 000 ml @ 75 mls/hr IV . [id number] SHANIQUE Rx#:[id number] Oral 480 360 Output: Urine 200 Urine/Stool Mix 1 Other: # Voids 2 1 - Exam PHYSICAL EXAMINATION: GENERAL: 67-year-old female in no acute distress at the time of my examination HEENT: Head is atraumatic, normocephalic. Pupils equal, round. Sclera anicteric. Conjunctiva are clear. Mucous membranes of the mouth are moist. Neck is supple. There is no elevated jugular venous pressure. No carotid bruit. HEART EXAMINATION: Heart S1, S2 normal. No murmur or gallop heard. CHEST EXAMINATION: Lungs are clear to auscultation and precussion. No chest wall tenderness is noted on palpation or with deep breathing. ABDOMEN: Soft, nontender. Bowel sounds are heard. No organomegaly noted. Right groin soft, no evidence of any hematoma. EXTREMITIES: 2+ peripheral pulses with no evidence of peripheral edema and no calf tenderness noted. NEUROLOGIC patient is awake, alert and oriented X3 - Labs CBC & Chem 7: 02/24/18 05:54 02/24/18 05:54 Labs: Abnormal Lab Results - Last 24 Hours (Table) 02/23/18 02/24/18 02/24/18 Range/Units 20:27 05:54 05:54 Glucose 163 H (74-99) mg/dL POC Glucose (mg/dL) 187 H (75-99) mg/dL Hemoglobin A1c 6.7 H (4.0-6.0) % Troponin I (0.000-0.034) ng/mL 02/24/18 02/24/18 02/24/18 Range/Units 05:58 11:54 14:20 Glucose (74-99) mg/dL POC Glucose (mg/dL) 173 H 113 H (75-99) mg/dL Hemoglobin A1c (4.0-6.0) % Troponin I 0.110 H* (0.000-0.034) ng/mL Assessment and Plan Plan: Assessment and plan #1 symptoms of severe chest discomfort with associated EKG changes suggesting possible ST elevation NV in the inferior region. #2 history of non-Q-wave myocardial infarction, cardiac catheterization performed in 2016 revealed an LAD lesion of 20-30%, it was felt at that time and may be secondary to vasospasm or plaque rupture. Patient did have 2 cardiac catheterizations performed prior to that which were normal. #3 hypertension #4 diabetes #5 hyperlipidemia Plan She underwent a cardiac catheterization, no obstructive coronary artery disease but it appears patient is having significant coronary spasm. Her dose of Cardizem was doubled as well as her dose of Imdur. She may be able to be discharged home today. We will also send her on sublingual nitroglycerin. She will have a follow-up appointment in the office with Dr. VC Zelaya post discharge. DNP note has been reviewed, I agree with a documented findings and plan of care. Patient was seen and examined.
--- NOTE | 2018-02-25 15:28 | P.DS ---
Providers Date of admission: 02/23/18 09:15 Expected date of discharge: 02/24/18 Attending physician: Garima Tam Consults: 02/23/18 12:46 Consult Physician Routine Consulting Provider: Lauren Zelaya Consult Reason/Comments: stemi Do you want consulting provider notified?: Already Contacted Primary care physician: [facility] Course: This is a pleasant 67-year-old female patient of Dr. Manfred Garcia BC per week. She has underlying history of hypertension diabetes mellitus type 2, hyperlipidemia, CAD nonocclusive disease, has coronary spasm/Prinzmetal angina admitted through the emergency room secondary to chest discomfort this happened while patient was resting for the night, chest pain occurred as if something was kicking her chest, lasted for one hour, patient chronically is on long- acting isosorbide, and does not carry sublingual nitroglycerin. Patient was subsequently seen in the emergency room secondary to lingering chest discomfort , this is nonsedating in character, nontender patient including food, and does not have any aspirate of events no cough no fever no chills. Patient also has accompanying sweats and headache, Emergency room, EKG was abnormal with ST segment elevation in inferior leads as well as Q waves in the inferior leads, that was initially obtained by the EMS, when seen in emergency room, EKG showed normal sinus rhythm with complete resolution of these changes. Patient was given sublingual nitroglycerin for which the pain was relieved down to a 4 out of 10 scale, and was started on heparin bolus nitroglycerin drip and aspirin. She underwent cardiac catheterization based on the findings and is admitted for unstable angina symptoms Cardiac cath performed 02/23/2018 shows left main coronary segment are normal and patent, LAD is good, mid LAD has 20-30% stenosis, circumflex of disease, RCA of disease, posterior descending artery disease, there is mild mid and basal inferior wall hypokinesia. Cardiology has recommended intensive medical treatment with anti-spasmodic medications as well as statins. 02/24: Cardiology has cleared the patient for discharge. Cardiology has doubled her Cardizem and Imdur. She does states she's had some more spasms. There is also concern that she is having esophageal spasm which may need outpatient workup. Echocardiogram has been performed but report is pending at the time of discharge. Hemoglobin A1c came back at 6.7. Patient is anxious to be discharged today. Patient will be discharged home in stable condition. Discharge diagnoses: 1. suspected ST elev inferior myocardial infarction 2. Diabetes mellitus type 2 with hyperglycemia. 3. History of Prinzmetal angina and spasm coronary artery 4. Hypertension 5. History of non-Q wave M I, heart catheterization in 2016 revealed LAD lesion 20-30%. Sutton to be secondary to vasospasm or plaque rupture. 6. Hyperlipidemia Discharge plan: Home Impression and plan of care have been directed as dictated by the signing physician. Guillermina Guaman nurse practitioner acting as scribe for signing physician. Patient Condition at Discharge: Good Plan - Discharge Summary Discharge Rx Participant: No New Discharge Prescriptions: New Clopidogrel [Plavix] 75 mg PO DAILY #30 tab Diltiazem Cd [Cardizem CD] 240 mg PO BID #120 cap.er.24h Famotidine [Pepcid] 20 mg PO DAILY #30 tab Isosorbide Mononitrate ER [Imdur] 60 mg PO BID #120 tab.er.24h Nitroglycerin Sl Tabs [Nitrostat] 0.4 mg SUBLINGUAL Q5M PRN #25 tab PRN Reason: Chest Pain Continue Cholecalciferol [Vitamin D3] 1,000 unit PO DAILY Ascorbic Acid [Vitamin C] 1,000 mg PO DAILY Losartan [Cozaar] 50 mg PO DAILY Glimepiride [Amaryl] 2 mg PO DAILY Atorvastatin [Lipitor] 40 mg PO HS metFORMIN HCL 1,000 mg PO BID Aspirin [Adult Low Dose Aspirin EC] 81 mg PO HS Fiber Therapy 1 tab PO DAILY Triamcinolone 0.1% Cream [Kenalog 0.1% Cream] 1 applicatio TOPICAL TID Discontinued Diltiazem HCl [Cardizem Cd] 120 mg PO DAILY Isosorbide Mononitrate ER [Imdur] 30 mg PO DAILY Discharge Medication List Ascorbic Acid [Vitamin C] 1,000 mg PO DAILY 10/31/15 [History] Atorvastatin [Lipitor] 40 mg PO HS 10/31/15 [History] Cholecalciferol [Vitamin D3] 1,000 unit PO DAILY 10/31/15 [History] Glimepiride [Amaryl] 2 mg PO DAILY 10/31/15 [History] Losartan [Cozaar] 50 mg PO DAILY 10/31/15 [History] metFORMIN HCL 1,000 mg PO BID 10/31/15 [History] Aspirin [Adult Low Dose Aspirin EC] 81 mg PO HS 03/20/16 [History] Fiber Therapy 1 tab PO DAILY 03/20/16 [History] Triamcinolone 0.1% Cream [Kenalog 0.1% Cream] 1 applicatio TOPICAL TID 02/23/18 [History] Clopidogrel [Plavix] 75 mg PO DAILY #30 tab 02/24/18 [Rx] Diltiazem Cd [Cardizem CD] 240 mg PO BID #120 cap.er.24h 02/24/18 [Rx] Famotidine [Pepcid] 20 mg PO DAILY #30 tab 02/24/18 [Rx] Isosorbide Mononitrate ER [Imdur] 60 mg PO BID #120 tab.er.24h 02/24/18 [Rx] Nitroglycerin Sl Tabs [Nitrostat] 0.4 mg SUBLINGUAL Q5M PRN #25 tab 02/24/18 [Rx ] Follow up Appointment(s)/Referral(s): Maurice Garcia MD [Primary Care Provider] - 03/03/18 11:00 am Lauren Zelaya MD [Family Provider] - 03/02/18 9:15 am Patient Instructions/Handouts: *[facility] - After Heart Catheterization - [employer] Instructions, Heart Healthy Diet (DC) Discharge Disposition: HOME SELF-CARE
== END 2018-02-24 14:56 | disposition home or self-care (01) | DRG 287 ==
LOC: EC 09:00 → 2SICU 09:15 → 3SCARD 10:17
PROVIDERS: ADMIT Internal Medicine; ATTEND Internal Medicine
PROC: B2111ZZ Fluoroscopy of Multiple Coronary Arteries using Low Osmolar Contrast (ICD-10-PCS; 2018-02-23)
PROC: B2151ZZ Fluoroscopy of Left Heart using Low Osmolar Contrast (ICD-10-PCS; 2018-02-23)
PROC: 4A023N7 Measurement of Cardiac Sampling and Pressure, Left Heart, Percutaneous Approach (ICD-10-PCS; principal; 2018-02-23 09:25)
DX: I25.111 Atherosclerotic heart disease of native coronary artery with angina pectoris with documented spasm (principal); E11.65 Type 2 diabetes mellitus with hyperglycemia; I10 Essential (primary) hypertension; I25.2 Old myocardial infarction; E78.5 Hyperlipidemia, unspecified; H26.9 Unspecified cataract; M19.90 Unspecified osteoarthritis, unspecified site; Z79.82 Long term (current) use of aspirin; Z79.84 Long term (current) use of oral hypoglycemic drugs; Z79.899 Other long term (current) drug therapy; Z90.710 Acquired absence of both cervix and uterus; Z90.49 Acquired absence of other specified parts of digestive tract; Z96.652 Presence of left artificial knee joint; Z96.691 Finger-joint replacement of right hand; Z88.5 Allergy status to narcotic agent; Z88.2 Allergy status to sulfonamides; Z87.891 Personal history of nicotine dependence; Z87.19 Personal history of other diseases of the digestive system; Z83.2 Family history of diseases of the blood and blood-forming organs and certain disorders involving the immune mechanism; Z80.9 Family history of malignant neoplasm, unspecified; Z81.8 Family history of other mental and behavioral disorders; Z82.49 Family history of ischemic heart disease and other diseases of the circulatory system
CPT/HCPCS: 71045; 80048; 80053; 82550; 82553; 83036; 83690; 84484; 85025; 85027; 85610; 85730; 93005; 93306; 93458; 94760; 96374; 99291

== ENCOUNTER 2018-05-26 11:01 | Observation (INO) | payer BC, MEDICARE ==
[2018-05-26] MEDS ORDERED: ONDANSETRON 4 MG/2 ML VIAL IVP STA (11:20)
[2018-05-26] MEDS ORDERED: ASPIRIN 81 MG PO STA (11:20)
[2018-05-26] MEDS ORDERED: SODIUM CHLORIDE 0.9% 500 ML 500 ML IV STA (11:20)
--- NOTE | 2018-05-26 11:24 | ED ---
General Adult HPI - General Chief complaint: Chest Pain Stated complaint: Palpitations Time Seen by Provider: 05/26/18 11:10 Source: patient Mode of arrival: wheelchair Limitations: no limitations - History of Present Illness Initial comments: Dictation was produced using [employer] dictation software. please excuse any grammatical, word or spelling errors. Chief Complaint: 68-year-old female past medical history coronary artery disease , mild cardiac infarction, dyslipidemia, diabetes presents with chief complaint of chest pain, dizziness and shortness of breath. History of Present Illness: Patient is 68-year-old female with multiple cardiac comorbidities. She states that prior to arrival she had a several minute episode of dizziness, chest pressure. She took 3 nitroglycerin tablets with improvement of symptoms. Patient states she has history of myocardial infarction. She had a cardiac cath performed last year showing mild disease to one of the coronary arteries. Patient states she was at rest at the onset of her symptoms. The ROS documented in this emergency department record has been reviewed and confirmed by me. Those systems with pertinent positive or negative responses have been documented in the HPI. All other systems are other negative and/or noncontributory. PHYSICAL EXAM: General Impression: Alert and oriented x3, not in acute distress HEENT: Normocephalic atraumatic, extra-ocular movements intact, pupils equal and reactive to light bilaterally, mucous membranes moist. Cardiovascular: Heart regular rate and rhythm, S1&S2 audible, no murmurs, rubs or gallops Chest: Lungs clear to auscultation bilaterally, no rhonchi, no wheeze, no rales Abdomen: Bowel sounds present, abdomen soft, non-tender, non-distended, no organomegaly Musculoskeletal: Pulses present and equal in all extremities, no peripheral edema Motor: Power 5/5 bilaterally, no focal deficits noted Neurological: CN II-XII grossly intact, no focal motor or sensory deficits noted Skin: Intact with no visualized rashes Psych: Normal affect and mood ED course: 68-year-old female presents with chest pain, nausea and shortness of breath. Vital signs upon arrival are within acceptable limits. Patient feels dramatic improvement of her symptoms after taking 3 nitroglycerin. Physical examination is unremarkable. Patient is well-appearing at this time. Laboratory evaluation obtained. Found to be unremarkable. Cardiac workup was negative. Patient has negative cardiac enzymes. Patient reevaluated in stable medical condition. Given patient's risk factors patient be admitted for serial troponins EKG interpretation: Ventricular rate 61, normal sinus rhythm, NH interval 162, QRS 94, QTC 410. No NH prolongation, no QTC prolongation, no ST or T-wave changes noted. EKG compared to 02/23/2018 showing no changes. Overall, this EKG is unremarkable - Related Data Home Medications Medication Instructions Recorded Confirmed Ascorbic Acid [Vitamin C] 1,000 mg PO DAILY 10/31/15 05/26/18 Atorvastatin [Lipitor] 40 mg PO HS 10/31/15 05/26/18 Cholecalciferol [Vitamin D3] 1,000 unit PO DAILY 10/31/15 05/26/18 Glimepiride [Amaryl] 2 mg PO DAILY 10/31/15 05/26/18 Losartan [Cozaar] 50 mg PO DAILY 10/31/15 05/26/18 metFORMIN HCL 1,000 mg PO BID 10/31/15 05/26/18 Aspirin [Adult Low Dose Aspirin EC] 81 mg PO HS 03/20/16 05/26/18 Fiber Therapy 1 tab PO DAILY 03/20/16 05/26/18 Diltiazem Cd [Cardizem Cd] 240 mg PO BID 05/26/18 05/26/18 Isosorbide Mononitrate ER [Imdur] 60 mg PO BID 05/26/18 05/26/18 amLODIPine [Norvasc] 5 mg PO DAILY 05/26/18 05/26/18 Previous Rx's Medication Instructions Recorded Clopidogrel [Plavix] 75 mg PO DAILY #30 tab 02/24/18 Famotidine [Pepcid] 20 mg PO DAILY #30 tab 02/24/18 Nitroglycerin Sl Tabs [Nitrostat] 0.4 mg SUBLINGUAL Q5M PRN #25 tab 02/24/18 Allergies Allergy/AdvReac Type Severity Reaction Status Date / Time hydrocodone [From T[place]] Allergy Nausea & Verified 05/26/18 11:33 Vomiting Sulfa (Sulfonamide Allergy Itching,fev Verified 05/26/18 11:33 Antibiotics) er tramadol Allergy Hallucinati Verified 05/26/18 11:33 ons Review of Systems ROS Statement: Those systems with pertinent positive or pertinent negative responses have been documented in the HPI. ROS Other: All systems not noted in ROS Statement are negative. Past Medical History Past Medical History: Coronary Artery Disease (CAD), Chest Pain / Angina, Diabetes Mellitus, Eye Disorder, Hyperlipidemia, Hypertension, Myocardial Infarction (MS), Osteoarthritis (OA) Additional Past Medical History / Comment(s): 11/2015 non Q wave MS, NIDDM type II, arthritis multiple joints, bilateral cataracts starting. Last Myocardial Infarction Date:: 11/2015 History of Any Multi-Drug Resistant Organisms: None Reported Past Surgical History: Appendectomy, Bladder Surgery, Cholecystectomy, Heart Catheterization, Hysterectomy, Joint Replacement, Orthopedic Surgery Additional Past Surgical History / Comment(s): Cardiac caths, arthroscopy left knee x3, total left knee arthroplasty, rt hand ring and thumb joint replacements , D&C, multiple ganglion cystectomies, diagnostic laparoscopy with lysis of adhesions, colonoscopies and last one had benign polypecotmy, bladder suspension. Past Anesthesia/Blood Transfusion Reactions: Motion Sickness, Postoperative Nausea & Vomiting (PONV) Past Psychological History: No Psychological Hx Reported Smoking Status: Former smoker Past Alcohol Use History: None Reported Past Drug Use History: None Reported - Past Family History Mother Family Medical History: Dementia Additional Family Medical History / Comment(s): Mother of dementia at the age of 92 yrs. There were several family members on her side with dementia. Sister(s) Family Medical History: Cancer, Deep Vein Thrombosis (DVT) Additional Family Medical History / Comment(s): Pt had 2 sisters with DVTs Father Family Medical History: Myocardial Infarction (MS) Additional Family Medical History / Comment(s): Father of a MS at the age of 63 yrs. Father's 7 siblings all had heart disease/MIs Son(s) Family Medical History: No Reported History General Exam Limitations: no limitations Course Vital Signs 05/26/18 05/26/18 05/26/18 11:05 11:44 11:50 Temperature 97.9 F Pulse Rate 68 Respiratory 18 Rate Blood Pressure 131/71 126/70 O2 Sat by Pulse 100 98 Oximetry 05/26/18 05/26/18 05/26/18 12:00 12:10 12:20 Temperature Pulse Rate 65 59 L 59 L Respiratory Rate Blood Pressure 127/67 O2 Sat by Pulse 95 Oximetry 05/26/18 05/26/18 05/26/18 12:30 12:40 12:47 Temperature Pulse Rate 61 60 Respiratory 18 Rate Blood Pressure 123/66 122/69 O2 Sat by Pulse 97 96 Oximetry 05/26/18 05/26/18 14:00 14:36 Temperature Pulse Rate 72 62 Respiratory 16 18 Rate Blood Pressure 117/62 O2 Sat by Pulse 99 98 Oximetry Medical Decision Making - Lab Data Result diagrams: 05/26/18 12:09 05/26/18 12:09 Lab Results 05/26/18 05/26/18 05/26/18 Range/Units 12:09 12:09 12:09 WBC 10.4 (3.8-10.6) k/uL RBC 4.25 (3.80-5.40) m/uL Hgb 13.1 (11.4-16.0) gm/dL Hct 39.9 (34.0-46.0) % MCV 93.7 (80.0-100.0) fL MCH 30.8 (25.0-35.0) pg MCHC 32.9 (31.0-37.0) g/dL RDW 12.5 (11.5-15.5) % Plt Count 327 (150-450) k/uL Neutrophils % 58 % Lymphocytes % 31 % Monocytes % 6 % Eosinophils % 3 % Basophils % 1 % Neutrophils # 6.0 (1.3-7.7) k/uL Lymphocytes # 3.3 (1.0-4.8) k/uL Monocytes # 0.6 (0-1.0) k/uL Eosinophils # 0.3 (0-0.7) k/uL Basophils # 0.1 (0-0.2) k/uL PT (9.0-12.0) sec INR (<1.2) APTT (22.0-30.0) sec Sodium 142 (137-145) mmol/L Potassium 4.6 (3.5-5.1) mmol/L Chloride 105 (98-107) mmol/L Carbon Dioxide 24 (22-30) mmol/L Anion Gap 13 mmol/L BUN 17 (7-17) mg/dL Creatinine 0.56 (0.52-1.04) mg/dL Est GFR (CKD-EPI)AfAm >90 (>60 ml/min/1.73 sqM) Est GFR (CKD-EPI)NonAf >90 (>60 ml/min/1.73 sqM) Glucose 109 H (74-99) mg/dL Calcium 10.2 (8.4-10.2) mg/dL Magnesium 1.0 L (1.6-2.3) mg/dL Total Bilirubin 1.2 (0.2-1.3) mg/dL AST 30 (14-36) U/L ALT 38 (9-52) U/L Alkaline Phosphatase 81 (38-126) U/L Total Creatine Kinase 56 (30-135) U/L CK-MB (CK-2) 0.4 (0.0-2.4) ng/mL CK-MB (CK-2) Rel Index 0.7 Troponin I <0.012 (0.000-0.034) ng/mL NT-Pro-B Natriuret Pep pg/mL Total Protein 8.1 (6.3-8.2) g/dL Albumin 4.7 (3.5-5.0) g/dL Lipase 94 (23-300) U/L Urine Color Urine Appearance (Clear) Urine pH (5.0-8.0) Ur Specific [place] (1.001-1.035) Urine Protein (Negative) Urine Glucose (UA) (Negative) Urine Ketones (Negative) Urine Blood (Negative) Urine Nitrite (Negative) Urine Bilirubin (Negative) Urine Urobilinogen (<2.0) mg/dL Ur Leukocyte Esterase (Negative) Urine RBC (0-5) /hpf Urine WBC (0-5) /hpf Ur Squamous Epith Cells (0-4) /hpf Amorphous Sediment (None) /hpf Urine Bacteria (None) /hpf Urine Mucus (None) /hpf 05/26/18 05/26/18 05/26/18 Range/Units 12:09 12:09 12:45 WBC (3.8-10.6) k/uL RBC (3.80-5.40) m/uL Hgb (11.4-16.0) gm/dL Hct (34.0-46.0) % MCV (80.0-100.0) fL MCH (25.0-35.0) pg MCHC (31.0-37.0) g/dL RDW (11.5-15.5) % Plt Count (150-450) k/uL Neutrophils % % Lymphocytes % % Monocytes % % Eosinophils % % Basophils % % Neutrophils # (1.3-7.7) k/uL Lymphocytes # (1.0-4.8) k/uL Monocytes # (0-1.0) k/uL Eosinophils # (0-0.7) k/uL Basophils # (0-0.2) k/uL PT 9.9 (9.0-12.0) sec INR 0.9 (<1.2) APTT 22.9 (22.0-30.0) sec Sodium (137-145) mmol/L Potassium (3.5-5.1) mmol/L Chloride (98-107) mmol/L Carbon Dioxide (22-30) mmol/L Anion Gap mmol/L BUN (7-17) mg/dL Creatinine (0.52-1.04) mg/dL Est GFR (CKD-EPI)AfAm (>60 ml/min/1.73 sqM) Est GFR (CKD-EPI)NonAf (>60 ml/min/1.73 sqM) Glucose (74-99) mg/dL Calcium (8.4-10.2) mg/dL Magnesium (1.6-2.3) mg/dL Total Bilirubin (0.2-1.3) mg/dL AST (14-36) U/L ALT (9-52) U/L Alkaline Phosphatase (38-126) U/L Total Creatine Kinase (30-135) U/L CK-MB (CK-2) (0.0-2.4) ng/mL CK-MB (CK-2) Rel Index Troponin I (0.000-0.034) ng/mL NT-Pro-B Natriuret Pep 107 pg/mL Total Protein (6.3-8.2) g/dL Albumin (3.5-5.0) g/dL Lipase (23-300) U/L Urine Color Yellow Urine Appearance Cloudy H (Clear) Urine pH 5.0 (5.0-8.0) Ur Specific [place] 1.017 (1.001-1.035) Urine Protein Negative (Negative) Urine Glucose (UA) Negative (Negative) Urine Ketones Negative (Negative) Urine Blood Negative (Negative) Urine Nitrite Negative (Negative) Urine Bilirubin Negative (Negative) Urine Urobilinogen <2.0 (<2.0) mg/dL Ur Leukocyte Esterase Trace H (Negative) Urine RBC 3 (0-5) /hpf Urine WBC 4 (0-5) /hpf Ur Squamous Epith Cells 4 (0-4) /hpf Amorphous Sediment Occasional H (None) /hpf Urine Bacteria Rare H (None) /hpf Urine Mucus Many H (None) /hpf Disposition Clinical Impression: Chest pain Disposition: ADMITTED IP TO THIS HOSP Condition: Fair Referrals: Maurice Garcia MD [Primary Care Provider] - 1-2 days Decision Time: 14:48
[2018-05-26 12:53] LABS: Basophils # (A) 0.1 k/uL (0-0.2); Basophils % (A) 1 %; Eosinophils # (A) 0.3 k/uL (0-0.7); Eosinophils % (A) 3 %; HCT 39.9 % (34.0-46.0); HGB 13.1 gm/dL (11.4-16.0); Lymphocytes # (A) 3.3 k/uL (1.0-4.8); Lymphocytes % (A) 31 %; MCH 30.8 pg (25.0-35.0); MCHC 32.9 g/dL (31.0-37.0); MCV 93.7 fL (80.0-100.0); Mean Platelet Volume 7.3; Monocytes # (A) 0.6 k/uL (0-1.0); Monocytes % (A) 6 %; Neutrophils % (A) 58 %; Platelet Count 327 k/uL (150-450); RBC 4.25 m/uL (3.80-5.40); RDW 12.5 % (11.5-15.5); WBC 10.4 k/uL (3.8-10.6)
[2018-05-26 13:02] LABS: ALT 38 U/L (9-52); AST 30 U/L (14-36); Albumin 4.7 g/dL (3.5-5.0); Alkaline Phosphatase 81 U/L (38-126); Anion Gap 13 mmol/L; Blood Urea Nitrogen 17 mg/dL (7-17); Calcium 10.2 mg/dL (8.4-10.2); Carbon Dioxide 24 mmol/L (22-30); Chloride 105 mmol/L (98-107); Glucose 109 mg/dL (74-99); Lipase 94 U/L (23-300); Potassium 4.6 mmol/L (3.5-5.1); Sodium 142 mmol/L (137-145); Total Bilirubin 1.2 mg/dL (0.2-1.3); Total Protein 8.1 g/dL (6.3-8.2)
[2018-05-26 13:19] LABS: INR 0.9 (<1.2); Partial Thromboplastin Time 22.9 sec (22.0-30.0); Prothrombin Time 9.9 sec (9.0-12.0)
[2018-05-26 13:26] LABS: Creatine Kinase 56 U/L (30-135)
[2018-05-26 13:38] LABS: Creatine Kinase MB 0.4 ng/mL (0.0-2.4); Troponin I <0.012 ng/mL (0.000-0.034)
[2018-05-26 13:43] LABS: Amorphous Sediment,Urine Occasional /hpf; Appearance,Urine Cloudy (Clear); Bacteria,Urine Rare /hpf; Bilirubin,Urine Negative (Negative); Blood,Urine Negative (Negative); Color,Urine Yellow; Glucose,Urine (UA) Negative (Negative); Ketones,Urine Negative (Negative); Leukocyte Esterase,Urine Trace (Negative); Mucus,Urine Many /hpf; Nitrite,Urine Negative (Negative); Protein,Urine Negative (Negative); RBC,Urine 3 /hpf (0-5); Specific Gravity,Urine 1.017 (1.001-1.035); Squamous Epithelial Cell,Urine 4 /hpf (0-4); Urobilinogen,Urine <2.0 mg/dL (<2.0)
--- NOTE | 2018-05-26 13:47 | XR ---
EXAMINATION TYPE: XR chest 2V DATE OF EXAM: 05/26/2018 COMPARISON: 02/23/2018 HISTORY: Dizziness, chest pressure and shortness of breath. History of coronary artery disease and my ocardial infarction TECHNIQUE: Frontal and lateral views of the chest are obtained. FINDINGS: There is no focal air space opacity, pleural effusion, or pneumothorax seen. The cardiac silhouette size is upper limits of normal size. The osseous structures are intact. IMPRESSION: No acute cardiopulmonary process.
[2018-05-26] MEDS ORDERED: NITROGLYCERIN SL TABS 0.4 MG TAB SUBLINGUAL PRN (14:45)
[2018-05-26 16:40] LABS: Glucose,Whole Blood 153 mg/dL (75-99)
[2018-05-26 19:04] LABS: Creatine Kinase 51 U/L (30-135)
[2018-05-26 19:14] LABS: Creatine Kinase MB 0.3 ng/mL (0.0-2.4); Troponin I <0.012 ng/mL (0.000-0.034)
[2018-05-26 20:32] LABS: Glucose,Whole Blood 161 mg/dL (75-99)
[2018-05-26] MEDS: metFORMIN 500 MG TAB PO SCH (22:02)
[2018-05-27 04:17] LABS: Cholesterol 189 mg/dL (<200); HDL Cholesterol 56 mg/dL (40-60); LDL Cholesterol,Calculated 78 mg/dL (0-99); Triglycerides 275 mg/dL (<150)
[2018-05-27 06:40] LABS: Glucose,Whole Blood 108 mg/dL (75-99)
[2018-05-27 07:31] VITALS: RESP 18
[2018-05-27] MEDS ORDERED: ASPIRIN 325 MG TAB PO SCH (09:00)
[2018-05-27] MEDS ORDERED: DILTIAZEM CD 240 MG CAP.ER.24H PO SCH (09:45)
[2018-05-27] MEDS ORDERED: ISOSORBIDE MONONITRATE ER 60 MG TAB.ER.24H PO SCH (09:45)
[2018-05-27] MEDS ORDERED: CLOPIDOGREL 75 MG TAB PO SCH (09:45)
[2018-05-27] MEDS: INSULIN ASPART (NovoLOG) 100 UNIT/ML VIAL SQ SCH ×2 (10:40→13:31)
[2018-05-27] MEDS: metFORMIN 500 MG TAB PO SCH (10:46)
[2018-05-27 11:29] VITALS: BP 131/74; PULSE 65; TEMP 97.9
[2018-05-27 11:53] LABS: Glucose,Whole Blood 197 mg/dL (75-99)
[2018-05-27] MEDS ORDERED: Magnesium Replacement Protocol 1 EACH MISC MISCELLANE PRN (12:32)
--- NOTE | 2018-05-27 12:35 | P.CRDCN ---
History of Present Illness History of present illness: This is a pleasant 68-year-old female with history of mild nonobstructive coronary artery disease with a history of vasospasm, diabetes mellitus, hypertension, dyslipidemia and former nicotine dependence. She follows in the office of Dr. Capone. We've been asked to see her in consultation. She presented to the hospital this morning with symptoms of light headed, dizzy, palpitations and shortness of breath. 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 She became acutely light headed and felt as if she was going to pass out. She braced herself along the wall and was able to get herself safely sitting down. She then started feeling her heart racing very fast. She describes it as rapid and regular. Shortly thereafter she started feeling short of breath. She took a SL nitroglycerin as recommended by Dr. Zelaya thinking this was a coronary spasm. However her symptoms persisted. She took a total of 3 nitro over the course of 20 minutes with no change in her symptoms. She denies ever feeling any chest pain, nausea, vomiting or diaphoresis. She denies ever actually passing out. She states her symptoms were ongoing when she arrived at the hospital. There is no documented arrhythmia. This lasted in total for approximately 2 hours and ultimately subsided on its own. She is seen and examined sitting up in bed in no acute distress with family at the bedside. She denies any ongoing dizziness, light headed, palpitations or shortness of breath. EKG reveals sinus mechanism with inferior Q-waves and non-specific ST abnormalities anteriorly. Comparison with previous EKG's reveals this is consistent with no acute changes noted. Chest x-ray is negative for acute cardiopulmonary process. Laboratory data reviewed, WBC 10.4, hemoglobin 13.1, platelets 327, sodium 142, potassium 4.6, creatinine 0.56, magnesium 1.0, cardiac enzymes negative 2. Current cardiac medications include aspirin 81 mg daily, atorvastatin 40 mg daily, Plavix 75 mg daily, losartan 50 mg daily, diltiazem 240 mg twice a day, Imdur 60 mg twice a day and amlodipine 5 mg daily. Most recently in the office she underwent an echocardiogram on May 12 which revealed preserved left ventricular systolic function with ejection fraction 55% Most recent cardiac catheterization performed in February 2018 a lesion in the mid LAD proximally 20-30% with evidence of mild basal inferior hypokinesia. At that time she presented to the hospital with chest discomfort and ST elevation and was diagnosed as having coronary artery spasm. At the time of my exam: CONSTITUTIONAL: Denies fever. Denies chills. EYES: Denies blurred vision. Denies vision changes. Denies eye pain. EARS, NOSE, MOUTH & THROAT: Denies headache. Denies sore throat. Denies ear pain. CARDIOVASCULAR: Denies chest pain. Denies shortness of breath. Denies orthopnea. Denies PND. Denies palpitations. RESPIRATORY: Denies cough. GASTROINTESTINAL: Denies abdominal pain. Denies diarrhea. Denies constipation. Denies nausea. Denies vomiting. MUSCULOSKELETAL: Denies myalgias. INTEGUMENTARY: Denies pruitis. Denies rash. NEUROLOGIC: Denies numbness. Denies tingling. Denies weakness. PSYCHIATRIC: Denies anxiety. Denies depression. ENDOCRINE: Denies fatigue. Denies weight change. Denies polydipsia. Denies polyurina. GENITOURINARY: Denies burning, hematuria or urgency with micturation. HEMATOLOGIC: Denies history of anemia. Denies bleeding. GENERAL: This is a 68-year-old female in no apparent distress at the time of my examination. HEENT: Head is atraumatic, normocephalic. Pupils are equal, round. Sclerae anicteric. Conjunctivae are clear. Mucous membranes of the mouth are moist. Neck is supple. There is no jugular venous distention. No carotid bruit is heard. LUNGS: Clear to auscultation no wheezes, rales or rhonchi. No chest wall tenderness is noted on palpation or with deep breathing. HEART: Regular rate and rhythm without murmurs, rubs or gallops. S1 and S2 heard. ABDOMEN: Soft, nontender. Bowel sounds are heard. No organomegaly noted. EXTREMITIES: No evidence of peripheral edema and no calf tenderness noted. VASCULAR: Radial and dorsalis pedis pulses palpated, no evidence of clubbing. NEUROLOGIC: Patient is awake, alert and oriented x3. ASSESSMENT Palpitations with associated dizziness and shortness of breath Hypomagnesemia History of mild nonobstructive coronary artery disease History of coronary artery spasm Hypertension Dyslipidemia Diabetes mellitus PLAN Echocardiogram obtained in the office 05/12 reviewed and reveals preserved LV systolic function with EF 55%, mildly calcified aortic valve, mild MR, TR and UT noted. We will not repeat on this admission. Check d-dimer and TSH. If d-dimer is abnormal will obtain CTA of the chest to assess for PE. Replace magnesium per protocol. Ongoing telemetry monitoring for any acute arrhythmia. Prior to discharge. 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 Resume home cardiac medications as previously ordered. Further recommendations to follow based upon clinical course. Thank you kindly for this consultation. Nurse Practitioner note has been reviewed, I agree with a documented findings and plan of care. Patient was seen and examined. Past Medical History Past Medical History: Coronary Artery Disease (CAD), Chest Pain / Angina, Diabetes Mellitus, Eye Disorder, Hyperlipidemia, Hypertension, Myocardial Infarction ([place]), Osteoarthritis (OA) Additional Past Medical History / Comment(s): 11/2015 non Q wave [place], NIDDM type II, arthritis multiple joints, bilateral cataracts starting. Last Myocardial Infarction Date:: 11/2015 History of Any Multi-Drug Resistant Organisms: None Reported Past Surgical History: Appendectomy, Bladder Surgery, Cholecystectomy, Heart Catheterization, Hysterectomy, Joint Replacement, Orthopedic Surgery Additional Past Surgical History / Comment(s): Cardiac caths, arthroscopy left knee x3, total left knee arthroplasty, rt hand ring and thumb joint replacements , D&C, multiple ganglion cystectomies, diagnostic laparoscopy with lysis of adhesions, colonoscopies and last one had benign polypecotmy, bladder suspension. Past Anesthesia/Blood Transfusion Reactions: Motion Sickness, Postoperative Nausea & Vomiting (PONV) Past Psychological History: No Psychological Hx Reported Additional Psychological History / Comment(s): Pt resides with her spouse. She is independent. She is retired from banking. Smoking Status: Former smoker Past Alcohol Use History: None Reported Additional Past Alcohol Use History / Comment(s): Pt states she started smoking in 1966 and was an on and off smoker sometimes quitting for years and then finally quitting for good in 1994. Past Drug Use History: None Reported - Past Family History Mother Family Medical History: Dementia Additional Family Medical History / Comment(s): Mother of dementia at the age of 92 yrs. There were several family members on her side with dementia. Sister(s) Family Medical History: Cancer, Deep Vein Thrombosis (DVT) Additional Family Medical History / Comment(s): Pt had 2 sisters with DVTs Father Family Medical History: Myocardial Infarction ([place]) Additional Family Medical History / Comment(s): Father of a [place] at the age of 63 yrs. Father's 7 siblings all had heart disease/MIs Son(s) Family Medical History: No Reported History Medications and Allergies Home Medications Medication Instructions Recorded Confirmed Type Ascorbic Acid [Vitamin C] 1,000 mg PO DAILY 10/31/15 05/26/18 History Atorvastatin [Lipitor] 40 mg PO HS 10/31/15 05/26/18 History Cholecalciferol [Vitamin D3] 1,000 unit PO DAILY 10/31/15 05/26/18 History Glimepiride [Amaryl] 2 mg PO DAILY 10/31/15 05/26/18 History Losartan [Cozaar] 50 mg PO DAILY 10/31/15 05/26/18 History metFORMIN HCL 1,000 mg PO BID 10/31/15 05/26/18 History Aspirin [Adult Low Dose Aspirin EC] 81 mg PO HS 03/20/16 05/26/18 History Fiber Therapy 1 tab PO DAILY 03/20/16 05/26/18 History Clopidogrel [Plavix] 75 mg PO DAILY #30 tab 02/24/18 05/26/18 Rx Famotidine [Pepcid] 20 mg PO DAILY #30 tab 02/24/18 05/26/18 Rx Nitroglycerin Sl Tabs [Nitrostat] 0.4 mg SUBLINGUAL Q5M PRN #25 tab 02/24/18 Rx Diltiazem Cd [Cardizem CD] 240 mg PO BID 05/26/18 05/26/18 History Isosorbide Mononitrate ER [Imdur] 60 mg PO BID 05/26/18 05/26/18 History amLODIPine [Norvasc] 5 mg PO DAILY 05/26/18 05/26/18 History Allergies Allergy/AdvReac Type Severity Reaction Status Date / Time hydrocodone [From [place]] Allergy Nausea & Verified 05/26/18 11:33 Vomiting Sulfa (Sulfonamide Allergy Itching,fev Verified 05/26/18 11:33 Antibiotics) er tramadol Allergy Hallucinati Verified 05/26/18 11:33 ons Physical Exam Vitals: Vital Signs Temp Pulse Pulse Resp BP BP BP 05/27/18 11:28 97.9 F 65 18 131/74 05/27/18 07:00 98.2 F 55 L 18 115/58 05/27/18 03:32 97.3 F L 57 L 16 119/69 05/27/18 03:27 60 16 05/27/18 00:00 60 16 05/26/18 23:41 98.4 F 60 16 135/56 05/26/18 20:00 57 L 16 05/26/18 19:45 98.4 F 57 L 16 127/68 05/26/18 15:43 05/26/18 15:36 18 05/26/18 15:13 98.2 F 63 18 145/72 05/26/18 15:02 16 05/26/18 14:36 62 18 117/62 05/26/18 14:00 72 16 05/26/18 12:47 122/69 05/26/18 12:40 60 18 123/66 05/26/18 12:30 61 05/26/18 12:20 59 L 127/67 05/26/18 12:10 59 L 05/26/18 12:00 65 05/26/18 11:50 05/26/18 11:44 126/70 Pulse Ox 05/27/18 11:28 94 L 05/27/18 07:00 97 05/27/18 03:32 97 05/27/18 03:27 05/27/18 00:00 05/26/18 23:41 98 05/26/18 20:00 05/26/18 19:45 96 05/26/18 15:43 98 05/26/18 15:36 05/26/18 15:13 96 05/26/18 15:02 05/26/18 14:36 98 05/26/18 14:00 99 05/26/18 12:47 05/26/18 12:40 96 05/26/18 12:30 97 05/26/18 12:20 95 05/26/18 12:10 05/26/18 12:00 05/26/18 11:50 98 05/26/18 11:44 Intake and Output 05/26/18 05/27/18 05/27/18 22:59 06:59 14:59 Intake Total 236 Balance 236 Intake: Oral 236 Other: # Voids 2 2 Results 05/26/18 12:09 05/26/18 12:09 Cardiac Enzymes 05/26/18 05/26/18 05/26/18 Range/Units 12:09 12:09 18:04 AST 30 (14-36) U/L CK-MB (CK-2) 0.4 0.3 (0.0-2.4) ng/mL Troponin I <0.012 <0.012 (0.000-0.034) ng/mL Coagulation 05/26/18 Range/Units 12:09 PT 9.9 (9.0-12.0) sec APTT 22.9 (22.0-30.0) sec Lipids 05/26/18 Range/Units 12:09 Triglycerides 275 H (<150) mg/dL Cholesterol 189 (<200) mg/dL HDL Cholesterol 56 (40-60) mg/dL CBC 05/26/18 Range/Units 12:09 WBC 10.4 (3.8-10.6) k/uL RBC 4.25 (3.80-5.40) m/uL Hgb 13.1 (11.4-16.0) gm/dL Hct 39.9 (34.0-46.0) % Plt Count 327 (150-450) k/uL Comprehensive Metabolic Panel 05/26/18 Range/Units 12:09 Sodium 142 (137-145) mmol/L Potassium 4.6 (3.5-5.1) mmol/L Chloride 105 (98-107) mmol/L Carbon Dioxide 24 (22-30) mmol/L BUN 17 (7-17) mg/dL Creatinine 0.56 (0.52-1.04) mg/dL Glucose 109 H (74-99) mg/dL Calcium 10.2 (8.4-10.2) mg/dL AST 30 (14-36) U/L ALT 38 (9-52) U/L Alkaline Phosphatase 81 (38-126) U/L Total Protein 8.1 (6.3-8.2) g/dL Albumin 4.7 (3.5-5.0) g/dL Current Medications Generic Name Dose Route Start Last Admin Trade Name Freq PRN Reason Stop Dose Admin Aspirin 81 mg 05/28/18 09:00 Aspirin PO DAILY SHANIQUE Clopidogrel Bisulfate 75 mg 05/27/18 09:45 05/27/18 10:46 Plavix PO 75 mg DAILY SHANIQUE Administration Diltiazem HCl 240 mg 05/27/18 09:45 05/27/18 10:46 Cardizem Cd PO 240 mg BID SHANIQUE Administration Insulin Aspart 0 unit 05/27/18 07:30 05/27/18 10:40 Novolog SQ Not Given A[facility]S [facility] Protocol Isosorbide Mononitrate 60 mg 05/27/18 09:45 05/27/18 10:46 Imdur PO 60 mg BID SHANIQUE Administration Metformin HCl 1,000 mg 05/26/18 21:30 05/27/18 10:46 Glucophage PO 1,000 mg BID-W/MEALS SHANIQUE Administration Nitroglycerin 0.4 mg 05/26/18 14:45 Nitrostat SUBLINGUAL Q5M PRN Chest Pain Intake and Output 05/26/18 05/27/18 05/27/18 22:59 06:59 14:59 Intake Total 236 Balance 236 Intake: Oral 236 Other: # Voids 2 2 05/26/18 12:09 05/26/18 12:09
--- NOTE | 2018-05-27 13:11 | CT ---
EXAMINATION TYPE: CT angio chest DATE OF EXAM: 05/27/2018 COMPARISON: 11/15/2015 HISTORY: Elevated d-dimer CT DLP: 292.4 mGycm. Automated Exposure Control for Dose Reduction was Utilized. CONTRAST: CTA scan of the thorax is performed with IV Contrast, patient injected with 100, wasted 28 mL of Isov ue 370, pulmonary embolism protocol. MIP Images are created on CT scanner and reviewed. FINDINGS: LUNGS: The lungs are grossly clear, there is no concerning parenchymal mass or nodule identified. T here is no pleural effusion or pneumothorax seen. The tracheobronchial tree is patent. MEDIASTINUM: There is satisfactory enhancement of the pulmonary artery and its branches, there is no CT evidence for pulmonary embolism. There are no greater than 1 cm hilar or mediastinal lymph nodes. No cardiomegaly or pericardial effusion is seen. OTHER: Gallbladder is surgically absent. IMPRESSION: No evidence of pulmonary embolism. No focal consolidation, pleural effusion or pneumothor ax and the lungs.
[2018-05-27] MEDS: MAGNESIUM SULFATE-D5W PMX 1 GM in DEXTROSE/WATER 1 100ML.BAG IVPB SCH ×3 (13:25→15:33)
[2018-05-27] MEDS ORDERED: ATORVASTATIN 40 MG TAB PO SCH (21:00)
[2018-05-27] MEDS ORDERED: ASPIRIN 81 MG PO SCH (21:00)
[2018-05-28] MEDS ORDERED: GLIMEPIRIDE 2 MG TAB PO SCH (07:30)
[2018-05-28] MEDS ORDERED: ASPIRIN 81 MG PO SCH (09:00)
[2018-05-28] MEDS ORDERED: amLODIPine 5 MG TAB PO SCH (09:00)
[2018-05-28] MEDS ORDERED: FAMOTIDINE 20 MG TAB PO SCH (09:00)
[2018-05-28] MEDS ORDERED: LOSARTAN 50 MG TAB PO SCH (09:00)
--- NOTE | 2018-05-28 11:20 | P.HPIM ---
History of Present Illness H&P Date: 05/27/18 Chief Complaint: Dizziness, palpitations, shortness of breath HISTORY AND PHYSICAL AND DISCHARGE SUMMARY: This is a 68-year-old female patient of Dr. Manfred Garcia and Dr. Zelaya with past medical history of hypertension, diabetes mellitus type 2, hyperlipidemia, coronary artery disease nonocclusive disease with coronary spasms/Prinzmetal angina. Patient states that she developed dizziness with her heart rating and shortness of breath but no chest pain that was very similar to her episode she had in February when she came in the hospital underwent a heart catheterization that showed minimal disease and did not require stent placement. Apparently findings with the same as previous 2 years. It was thought the patient was having spasms and she does have a family history of the same. She last saw Dr. Zelaya on May 12 and echocardiogram revealed preserved left ventricular systolic function with ejection fraction 55%. EKG reveals sinus rhythm with inferior Q-waves and non-specific ST abnormalities anteriorly but unchanged from previous. CBC was normal. Troponins have been negative on 3 draws. TSH 0.8-8. Blood sugars have been elevated. Urinalysis showed trace leukoesterase. Chest x-ray was normal. D-dimer came back elevated at 4.41 and patient underwent a CTA of the chest was negative for pulmonary embolism. Patient was seen by cardiology and cleared for discharge. At the time of our evaluation, patient had no chest pain, shortness of breath, dizziness or lightheadedness. We did recommend for 30 day event monitor which cardiology is arranging. Patient will be discharged home today in stable condition. No changes have been made to her home medication list. Review of Systems All systems: negative Constitutional: Denies anorexia, Denies chills, Denies fatigue, Denies fever, Denies lethargy, Denies malaise, Denies poor appetite, Denies sweats, Denies weakness, Denies weight loss Eyes: denies blurred vision, denies pain Ears, nose, mouth and throat: Reports vertigo, Denies dysphagia, Denies headache , Denies nasal congestion, Denies sore throat Cardiovascular: Reports dyspnea on exertion, Reports lightheadedness, Reports palpitations, Reports rapid heart beat, Reports shortness of breath, Denies chest pain, Denies edema, Denies leg edema, Denies syncope Respiratory: Reports dyspnea, Denies cough, Denies cough with sputum, Denies excessive sputum, Denies hemoptysis, Denies home oxygen, Denies respiratory infections, Denies wheezing Gastrointestinal: Denies abdominal pain, Denies diarrhea, Denies loss of appetite, Denies melena, Denies nausea, Denies vomiting Genitourinary: Denies dysuria, Denies hematuria, Denies urgency, Denies urinary frequency Musculoskeletal: Denies frequent falls, Denies gait dysfunction, Denies muscle weakness, Denies myalgias Integumentary: Denies pruritus, Denies rash, Denies wounds Neurological: Reports vertigo, Denies aphasia, Denies change in mentation, Denies change in speech, Denies confusion, Denies gait dysfunction, Denies numbness, Denies seizures, Denies weakness Psychiatric: Denies anxiety, Denies depression Endocrine: Denies fatigue, Denies weight change Past Medical History Past Medical History: Coronary Artery Disease (CAD), Chest Pain / Angina, Diabetes Mellitus, Eye Disorder, Hyperlipidemia, Hypertension, Myocardial Infarction ([place]), Osteoarthritis ([place]) Additional Past Medical History / Comment(s): 11/2015 non Q wave [place], NIDDM type II, arthritis multiple joints, bilateral cataracts starting. Last Myocardial Infarction Date:: 11/2015 History of Any Multi-Drug Resistant Organisms: None Reported Past Surgical History: Appendectomy, Bladder Surgery, Cholecystectomy, Heart Catheterization, Hysterectomy, Joint Replacement, Orthopedic Surgery Additional Past Surgical History / Comment(s): Cardiac caths, arthroscopy left knee x3, total left knee arthroplasty, rt hand ring and thumb joint replacements , D&C, multiple ganglion cystectomies, diagnostic laparoscopy with lysis of adhesions, colonoscopies and last one had benign polypecotmy, bladder suspension. Past Anesthesia/Blood Transfusion Reactions: Motion Sickness, Postoperative Nausea & Vomiting (PONV) Past Psychological History: No Psychological Hx Reported Additional Psychological History / Comment(s): Pt resides with her spouse. She is independent. She is retired from banking. Smoking Status: Former smoker Past Alcohol Use History: None Reported Additional Past Alcohol Use History / Comment(s): Pt states she started smoking in 1966 and was an on and off smoker sometimes quitting for years and then finally quitting for good in 1994. Past Drug Use History: None Reported - Past Family History Mother Family Medical History: Dementia Additional Family Medical History / Comment(s): Mother of dementia at the age of 92 yrs. There were several family members on her side with dementia. Sister(s) Family Medical History: Cancer, Deep Vein Thrombosis (DVT) Additional Family Medical History / Comment(s): Pt had 2 sisters with DVTs and one of the sisters has history of Prinzmetal angina Father Family Medical History: Myocardial Infarction ([place]) Additional Family Medical History / Comment(s): Father of a [place] at the age of 63 yrs. Father's 7 siblings all had heart disease/MIs Son(s) Family Medical History: No Reported History Medications and Allergies Home Medications Medication Instructions Recorded Confirmed Type Ascorbic Acid [Vitamin C] 1,000 mg PO DAILY 10/31/15 05/26/18 History Atorvastatin [Lipitor] 40 mg PO HS 10/31/15 05/26/18 History Cholecalciferol [Vitamin D3] 1,000 unit PO DAILY 10/31/15 05/26/18 History Glimepiride [Amaryl] 2 mg PO DAILY 10/31/15 05/26/18 History Losartan [Cozaar] 50 mg PO DAILY 10/31/15 05/26/18 History metFORMIN HCL 1,000 mg PO BID 10/31/15 05/26/18 History Aspirin [Adult Low Dose Aspirin EC] 81 mg PO HS 03/20/16 05/26/18 History Fiber Therapy 1 tab PO DAILY 03/20/16 05/26/18 History Clopidogrel [Plavix] 75 mg PO DAILY #30 tab 02/24/18 05/26/18 Rx Famotidine [Pepcid] 20 mg PO DAILY #30 tab 02/24/18 05/26/18 Rx Nitroglycerin Sl Tabs [Nitrostat] 0.4 mg SUBLINGUAL Q5M PRN #25 tab 02/24/18 Rx Diltiazem Cd [Cardizem CD] 240 mg PO BID 05/26/18 05/26/18 History Isosorbide Mononitrate ER [Imdur] 60 mg PO BID 05/26/18 05/26/18 History amLODIPine [Norvasc] 5 mg PO DAILY 05/26/18 05/26/18 History Allergies Allergy/AdvReac Type Severity Reaction Status Date / Time hydrocodone [From [place]] Allergy Nausea & Verified 05/26/18 11:33 Vomiting Sulfa (Sulfonamide Allergy Itching,fev Verified 05/26/18 11:33 Antibiotics) er tramadol Allergy Hallucinati Verified 05/26/18 11:33 ons Physical Exam Vitals: Vital Signs Temp Pulse Pulse Resp BP BP BP 05/27/18 07:00 98.2 F 55 L 18 115/58 05/27/18 03:32 97.3 F L 57 L 16 119/69 05/27/18 03:27 60 16 05/27/18 00:00 60 16 05/26/18 23:41 98.4 F 60 16 135/56 05/26/18 20:00 57 L 16 05/26/18 19:45 98.4 F 57 L 16 127/68 05/26/18 15:43 05/26/18 15:36 18 05/26/18 15:13 98.2 F 63 18 145/72 05/26/18 15:02 16 05/26/18 14:36 62 18 117/62 05/26/18 14:00 72 16 05/26/18 12:47 122/69 05/26/18 12:40 60 18 123/66 05/26/18 12:30 61 05/26/18 12:20 59 L 127/67 05/26/18 12:10 59 L 05/26/18 12:00 65 05/26/18 11:50 05/26/18 11:44 126/70 Pulse Ox 05/27/18 07:00 97 05/27/18 03:32 97 05/27/18 03:27 05/27/18 00:00 05/26/18 23:41 98 05/26/18 20:00 05/26/18 19:45 96 05/26/18 15:43 98 05/26/18 15:36 05/26/18 15:13 96 05/26/18 15:02 05/26/18 14:36 98 05/26/18 14:00 99 05/26/18 12:47 05/26/18 12:40 96 05/26/18 12:30 97 05/26/18 12:20 95 05/26/18 12:10 05/26/18 12:00 05/26/18 11:50 98 05/26/18 11:44 Intake and Output 05/26/18 05/27/18 05/27/18 22:59 06:59 14:59 Intake Total 236 Balance 236 Intake: Oral 236 Other: # Voids 2 2 Gen: This is a 68-year-old overweight female. She is resting in bed eating breakfast and appears to be comfortable and in no acute distress. No choking or coughing noted with eating. HEENT: Head is atraumatic, normocephalic. Pupils equal, round. Sclerae is anicteric. NECK: Supple. No JVD. No lymphadenopathy. No thyromegaly. LUNGS: Clear to auscultation. No wheezes or rhonchi. No intercostal retractions. No chest wall tenderness HEART: Regular rate and rhythm. No murmur. ABDOMEN: Soft. Bowel sounds are present. No masses. No tenderness. EXTREMITIES: No pedal edema. No calf tenderness. Dorsalis pedis +2 bilaterally. NEUROLOGICAL: Patient is awake, alert and oriented x3. Cranial nerves 2 through 12 are grossly intact. Results CBC & Chem 7: 05/26/18 12:09 05/26/18 12:09 Labs: Abnormal Lab Results - Last 24 Hours (Table) 05/26/18 05/26/18 05/26/18 Range/Units 12:09 12:09 12:45 Glucose 109 H (74-99) mg/dL POC Glucose (mg/dL) (75-99) mg/dL Magnesium 1.0 L (1.6-2.3) mg/dL Triglycerides 275 H (<150) mg/dL Urine Appearance Cloudy H (Clear) Ur Leukocyte Esterase Trace H (Negative) Amorphous Sediment Occasional H (None) /hpf Urine Bacteria Rare H (None) /hpf Urine Mucus Many H (None) /hpf 05/26/18 05/26/18 05/27/18 Range/Units 16:39 20:26 06:38 Glucose (74-99) mg/dL POC Glucose (mg/dL) 153 H 161 H 108 H (75-99) mg/dL Magnesium (1.6-2.3) mg/dL Triglycerides (<150) mg/dL Urine Appearance (Clear) Ur Leukocyte Esterase (Negative) Amorphous Sediment (None) /hpf Urine Bacteria (None) /hpf Urine Mucus (None) /hpf Thrombosis Risk Factor Assmnt - Choose All That Apply Any of the Below Risk Factors Present?: Yes Each Factor Represents 1 point: Obesity (BMI >25) Other Risk Factors: Yes Each Risk Factor Represents 2 Points: Age 61-74 years Thrombosis Risk Factor Assessment Total Risk Factor Score: 3 Thrombosis Risk Factor Assessment Level: Moderate Risk Assessment and Plan Plan: 1. Dizziness, palpitations, shortness of breath of unclear etiology. 30 day event monitor. Cardiology consult appreciated. 2. History of Prinzmetal angina and mild nonobstructive coronary artery disease , stable. 3. Hypertension. 4. Diabetes mellitus type 2. 5. Hyperlipidemia. Patient placed on the observation unit. Discharge plan: home Impression and plan of care have been directed as dictated by the signing physician. Guillermina Guaman nurse practitioner acting as scribe for signing physician.
== END 2018-05-27 16:25 | disposition home or self-care (01) ==
LOC: EC 11:01 → 1SOBS 14:45
PROVIDERS: ADMIT Internal Medicine Geriatric Medicine; ATTEND Internal Medicine Geriatric Medicine
DX: R07.89 Other chest pain (principal); R42 Dizziness and giddiness; R00.2 Palpitations; R06.02 Shortness of breath; E11.9 Type 2 diabetes mellitus without complications; I10 Essential (primary) hypertension; E78.5 Hyperlipidemia, unspecified; I25.10 Atherosclerotic heart disease of native coronary artery without angina pectoris; E83.42 Hypomagnesemia; E66.3 Overweight; Z68.28 Body mass index [BMI] 28.0-28.9, adult; I25.2 Old myocardial infarction; Z90.710 Acquired absence of both cervix and uterus; Z87.891 Personal history of nicotine dependence; Z79.82 Long term (current) use of aspirin; Z79.899 Other long term (current) drug therapy; Z79.02 Long term (current) use of antithrombotics/antiplatelets; Z88.5 Allergy status to narcotic agent; Z88.2 Allergy status to sulfonamides; Z86.010 Personal history of colon polyps; Z79.84 Long term (current) use of oral hypoglycemic drugs; Z82.49 Family history of ischemic heart disease and other diseases of the circulatory system; Z96.652 Presence of left artificial knee joint
CPT/HCPCS: 96365; 96361; 99285; 36415; 93005; 85379; 83880; 80061; 80053; 84443; 82550; 82553; 83690; 83735; 84484; 85025; 85610; 85730; 81001; 71046; 71275; G0378 ×2; J3475; Q9967

== ENCOUNTER 2018-06-12 06:50 | Day surgery (SDC) | payer BC ==
[2018-06-10 13:05] VITALS: BMI 27.5
[~2018-06-12 06:50] MED LIST: LACTATED RINGERS 1,000 ML IV SCH
[2018-06-12 07:43] VITALS: RESP 16; TEMP 98.2
[2018-06-12 07:54] LABS: Glucose,Whole Blood 157 mg/dL (75-99)
[2018-06-12] MEDS ORDERED: PROPOFOL 10 MG/ML 20 ML VIAL IV ONE (08:03)
--- NOTE | 2018-06-12 08:24 | P.PCN ---
Date of Procedure: 06/12/18 Procedure(s) Performed: BRIEF HISTORY: Patient is a 68-year-old pleasant female, scheduled for an elective colonoscopy as a part of value should of prior history of colon polyps. Her last colonoscopy was 3 years ago and was noted to have an adenoma. She also has family history of colon cancer diagnosed in her sister at age 65. PROCEDURE PERFORMED: Colonoscopy. PREOPERATIVE DIAGNOSIS: History of colon polyps/family history of colon cancer. IV sedation per Anesthesia. PROCEDURE: After informed consent was obtained, the patient, was brought into the endoscopy unit. IV sedation was administered by Anesthesia under continuous monitoring. Digital rectal examination was normal. Initially the Olympus CF-160 flexible video colonoscope was then inserted in the rectum, gradually advanced into the cecum without any difficulty. Careful examination was performed as the scope was gradually being withdrawn. Ileocecal valve and the appendiceal orifice were visualized and appeared normal. Prep was excellent. Mucosa of the cecum, ascending colon, transverse colon, descending colon, sigmoid colon, and rectum appeared normal. Retroflexion was performed in the rectum and no lesions were seen. The patient tolerated the procedure well. IMPRESSION: Normal-appearing colon from rectum to cecum with no evidence of colorectal neoplasia . RECOMMENDATIONS: Findings of this examination were discussed with the patient as well as a family. She was advised to have a repeat surveillance colonoscopy in 5 years because of the prior history of colon polyps and family history of colon cancer.
[2018-06-12 08:41] VITALS: BP 117/59; PULSE 57
== END 2018-06-12 08:58 | disposition home or self-care (01) ==
LOC: ORWHC2ENDO 06:50
PROVIDERS: ATTEND Internal Medicine Gastroenterology
DX: Z86.010 Personal history of colon polyps (principal); Z80.0 Family history of malignant neoplasm of digestive organs; Z88.2 Allergy status to sulfonamides; Z88.8 Allergy status to other drugs, medicaments and biological substances; Z88.5 Allergy status to narcotic agent; I10 Essential (primary) hypertension; E78.5 Hyperlipidemia, unspecified; I25.10 Atherosclerotic heart disease of native coronary artery without angina pectoris; E11.9 Type 2 diabetes mellitus without complications; Z79.02 Long term (current) use of antithrombotics/antiplatelets; Z79.82 Long term (current) use of aspirin; Z79.899 Other long term (current) drug therapy
CPT/HCPCS: 45378; J2704

== ENCOUNTER → 2018-12-25 | Outpatient (CLI) | payer BC ==
--- NOTE | 2018-12-29 08:24 | MM ---
Reason for exam: screening (asymptomatic). Last mammogram was performed 1 year ago. History: Patient is postmenopausal. Excisional biopsy of the left breast. Took estrogen for 15 years. Physical Findings: A clinical breast exam by your physician is recommended on an annual basis and results should be correlated with mammographic findings. MG Screening Mammo w CAD Bilateral CC and MLO view(s) were taken. Prior study comparison: December 15, 2017, bilateral MG screening mammo w CAD. December 05, 2016, bilateral MG screening mammo w CAD. There are scattered fibroglandular densities. There is chronic nodularity in the left breast. Scattered benign oil cyst calcifications. No significant changes when compared with prior studies. ASSESSMENT: Negative, BI-RAD 1 RECOMMENDATION: Routine screening mammogram of both breasts in 1 year.
== END | disposition home or self-care (01) ==
LOC: RADMAMWWP 09:37
PROVIDERS: ATTEND Family Medicine
DX: Z12.31 Encounter for screening mammogram for malignant neoplasm of breast (principal)
CPT/HCPCS: 77067

== ENCOUNTER → 2020-03-09 | Outpatient (CLI) | payer MEDICARE | END | disposition home or self-care (01) | LOC: LABWHC1 16:17 | PROVIDERS: ATTEND Family Medicine | DX: Z20.828 Contact with and (suspected) exposure to other viral communicable diseases (principal) | CPT/HCPCS: U0003; C9803 ==

== ENCOUNTER → 2020-07-07 | Outpatient (CLI) | payer MEDICARE ==
--- NOTE | 2020-07-11 08:20 | MM ---
Reason for exam: screening (asymptomatic). Last mammogram was performed 1 year and 6 months ago. History: Patient is postmenopausal. Excisional biopsy of the left breast. Took hormonal contraceptives for 6 years. Took estrogen for 15 years. Physical Findings: A clinical breast exam by your physician is recommended on an annual basis and results should be correlated with mammographic findings. MG 3D Screening Mammo W/Cad Bilateral CC and MLO view(s) were taken. Prior study comparison: December 25, 2018, bilateral MG screening mammo w CAD. December 15, 2017, bilateral MG screening mammo w CAD. There are scattered fibroglandular densities. There is chronic nodularity in the left breast. Benign oil cyst calcifications. No significant changes when compared with prior studies. ASSESSMENT: Negative, BI-RAD 1 RECOMMENDATION: Routine screening mammogram of both breasts in 1 year.
== END | disposition home or self-care (01) ==
LOC: RADMAMWWP 12:53
PROVIDERS: ATTEND Family Medicine
DX: Z12.31 Encounter for screening mammogram for malignant neoplasm of breast (principal); Z78.0 Asymptomatic menopausal state
CPT/HCPCS: 77063; 77067

== ENCOUNTER → 2021-07-18 | Outpatient (CLI) | payer MEDICARE ==
--- NOTE | 2021-07-19 08:08 | MM ---
Reason for exam: clinical finding. Last mammogram was performed 1 year ago. History: Patient is postmenopausal. Excisional biopsy of the left breast. Took hormonal contraceptives for 6 years. Took estrogen for 15 years. Physical Findings: A clinical breast exam by your physician is recommended on an annual basis and results should be correlated with mammographic findings. MG 3D Diag Mammo W/Cad LIANET Bilateral CC and MLO view(s) were taken. ML, CC with magnification, and ML with magnification view(s) were taken of the right breast. Prior study comparison: July 07, 2020, bilateral MG 3d screening mammo w/cad. December 25, 2018, bilateral MG screening mammo w CAD. There are scattered fibroglandular densities. Finding: There are intermediate concern, suspicious coarse heterogeneous, grouped/clustered calcifications in the 5 o'clock anterior position of the right breast. New finding since July 07, 2020 and December 25, 2018. Results were given to the patient verbally at the time of the exam. ASSESSMENT: Incomplete: need additional imaging evaluation, BI-RAD 0 RECOMMENDATION: Ultrasound of the right breast.
--- NOTE | 2021-07-19 08:09 | USB ---
Reason for exam: additional evaluation requested from abnormal screening. History: Patient is postmenopausal. Excisional biopsy of the left breast. Took hormonal contraceptives for 6 years. Took estrogen for 15 years. Physical Findings: A clinical breast exam by your physician is recommended on an annual basis and results should be correlated with mammographic findings. US Breast Limited RT Right limited breast ultrasound including focal area of concern, retroareolar and axilla demonstrates no cystic or solid lesion seen. Scanned 12-3 o'clock. Results were given to the patient verbally at the time of the exam. ASSESSMENT: Suspicious, BI-RAD 4 RECOMMENDATION: Stereotactic core biopsy of the right breast. (x 2) Called office with mammographic findings and has scheduled an appointment for the patient for 07/19/21 at 3:[address] Rosales. PRELIMINARY REPORT CALLED AND FAXED TO DR. ROSALES ON 07/19/21.
== END | disposition home or self-care (01) ==
LOC: RADMAMWWP 13:55
PROVIDERS: ATTEND Family Medicine
DX: R92.1 Mammographic calcification found on diagnostic imaging of breast (principal); Z78.0 Asymptomatic menopausal state
CPT/HCPCS: 77066; 76642; G0279; 77062

== ENCOUNTER → 2022-02-21 | Outpatient (CLI) | payer MEDICARE ==
--- NOTE | 2022-02-21 15:11 | MM ---
Reason for Exam: Follow-up at short interval from prior study. Last screening mammogram was performed 7 month(s) ago. Patient History: Menarche at age 11. First Full-Term at age 19. Left ovary removed at age 39. Right ovary removed at age 39. Hysterectomy at age 39. Postmenopausal. Estrogen for 15 years until age 54. Patient used Hormonal Contraceptives for 6 years. Excisional Biopsy on the Left side. 08/13/2021, Benign Core Biopsy on the right side. 08/13/2021, Benign Core Biopsy on the right side. Risk Values: Colette 5 year model risk: 2.4%. NCI Lifetime model risk: 6.1%. Prior Study Comparison: 12/25/2018 Bilateral Screening Mammogram, [facility]. 07/07/2020 Bilateral Screening Mammogram, [facility]. 07/18/2021 Bilateral Diagnostic Mammogram, [facility]. Tissue Density: Right: There are scattered fibroglandular densities. Findings: Analyzed By CAD. Benign diffuse round calcifications are redemonstrated. Microclip anterior right breast from recent biopsy. Adjacent similar group of coarse microcalcifications are unchanged. There is a vague low density 5 mm area of focal asymmetry upper inner quadrant at a middle depth which appears to have been present on 08/13/2021 but not clearly seen on older priors. This area should be reassessed in 6 months. Otherwise, no significant change is seen. Overall Assessment: Probably benign, BI-RAD 3 Management: Diagnostic Mammogram of both breasts in 6 months. 1. In time for the patient's annual exam. Diagnostic follow-up on the right for a vague 5 mm low-density focal asymmetry upper inner quadrant right breast. 2. Patient should continue monthly self breast exams. These results should not preclude additional follow-up of suspicious palpable abnormalities. Results were given to the patient verbally at the time of exam. Electronically signed and approved by: Bárbara Abel M.D. Radiologist
== END | disposition home or self-care (01) ==
LOC: RADMAMWWP 14:33
PROVIDERS: ATTEND Family Medicine
DX: R92.8 Other abnormal and inconclusive findings on diagnostic imaging of breast (principal); Z78.0 Asymptomatic menopausal state; Z98.890 Other specified postprocedural states
CPT/HCPCS: 77065; G0279; 77061

== ENCOUNTER → 2022-08-23 | Outpatient (CLI) | payer MEDICARE ==
--- NOTE | 2022-08-23 14:31 | MM ---
Reason for Exam: Follow-up at short interval from prior study. Last mammogram was performed 1 year(s) and 1 month(s) ago. Patient History: Menarche at age 11. First Full-Term at age 19. Left ovary removed at age 39. Right ovary removed at age 39. Hysterectomy at age 39. Postmenopausal. Estrogen for 15 years until age 54. Patient used Hormonal Contraceptives for 6 years. Excisional Biopsy on the Left side. 08/13/2021, Benign Core Biopsy on the right side. 08/13/2021, Benign Core Biopsy on the right side. Risk Values: Colette 5 year model risk: 2.4%. NCI Lifetime model risk: 5.8%. Prior Study Comparison: 12/08/2014 Bilateral Screening Mammogram, [facility]. 12/05/2016 Bilateral Screening Mammogram, [facility]. 12/15/2017 Bilateral Screening Mammogram, [facility]. 12/25/2018 Bilateral Screening Mammogram, [facility]. 07/07/2020 Bilateral Screening Mammogram, [facility]. 07/18/2021 Bilateral Diagnostic Mammogram, [facility]. 07/18/2021 Right Diagnostic Ultrasound, [facility]. 02/21/2022 Right MG 3D diag mammo w/cad RT, [facility]. Tissue Density: There are scattered fibroglandular densities. Findings: Analyzed By CAD. There are scattered and loosely grouped small benign-appearing round calcifications throughout the bilateral breasts redemonstrated. Stable oval 4 mm circumscribed mass in the right breast middle to posterior depth slightly inner aspect stable oval circumscribed 7 mm mass in the left breast middle to posterior upper outer quadrant probable low-lying lymph node. No suspicious new mass or distortion in either breast. Overall Assessment: Benign, BI-RAD 2 Management: Screening Mammogram of both breasts in 1 year. . Results were given to the patient verbally at the time of exam. Patient should continue monthly self-breast exams. A clinical breast exam by your physician is recommended on an annual basis. This exam should not preclude additional follow-up of suspicious palpable abnormalities. Note on Colette scores and lifetime risk: 1. A Colette score greater than 3% is considered moderate risk. If this is the case, consider specialist referral to assess eligibility for a risk reducing agent. 2. If overall lifetime risk for the development of breast cancer is 20% or higher, the patient may qualify for future screening with alternating mammogram and breast MRI. Electronically signed and approved by: Justino Mcghee M.D.
== END | disposition home or self-care (01) ==
LOC: RADMAMWWP 13:46
PROVIDERS: ATTEND Family Medicine
DX: R92.8 Other abnormal and inconclusive findings on diagnostic imaging of breast (principal); Z78.0 Asymptomatic menopausal state
CPT/HCPCS: 77066; G0279; 77062

== ENCOUNTER → 2022-09-05 | Outpatient (CLI) | payer MEDICARE ==
--- NOTE | 2022-09-05 15:08 | MR ---
EXAMINATION TYPE: MR thoracic spine wo con DATE OF EXAM: 09/05/2022 COMPARISON: HISTORY: Mid back pain x 10 years CONTRAST: Performed utilizing mL intravenous gadolinium contrast. TECHNIQUE: Multiplanar, multiecho imaging on a 3.0 [place] magnet is performed through the thoracic spi ne. C7-T1: Minimal disc bulging is present C7 mild left paracentral thecal sac compression. No cord conta ct centrally. No AP spinal canal stenosis is present. Neural foramen are patent. T11-T12: Minimal disc bulge has anterior thecal sac contact. No AP spinal canal stenosis or neural fo raminal stenosis is present. No cord contact is evident. T12-L1: There is broad base central left paracentral disc bulging. No cord contact or AP spinal canal stenosis is present. Neural foramen are patent. Spinal cord maintains normal signal through its visualized course. Vertebral body alignment is normal. Vertebral body heights are preserved. Disc heights are preserved. Disc hydration levels are preserved. No spinal canal stenosis is evident. IMPRESSIONS: 1. Minimal disc bulging at C7-T1. 2. Minimal disc bulge T11-T12. 3. Mild disc bulging and left paracentral region T12-L1 without cord contact or spinal canal stenosis .
== END | disposition home or self-care (01) ==
LOC: RADMRIMAIN 07:42
PROVIDERS: ATTEND Orthopaedic Surgery Orthopaedic Surgery of the Spine
DX: S39.012D Strain of muscle, fascia and tendon of lower back, subsequent encounter (principal); M51.34 Other intervertebral disc degeneration, thoracic region
CPT/HCPCS: 72146

== ENCOUNTER 2022-12-15 14:48 | Observation (INO) | payer MEDICARE ==
--- NOTE | 2022-12-15 15:28 | XR ---
EXAMINATION TYPE: XR chest 2V DATE OF EXAM: 12/15/2022 COMPARISON: 05/26/2018 HISTORY: Chest pain TECHNIQUE: Frontal and lateral views of the chest are obtained. FINDINGS: There is no focal air space opacity, pleural effusion, or pneumothorax seen. The cardiac silhouette size is within normal limits. The osseous structures are intact. IMPRESSION: No acute cardiopulmonary process.
[2022-12-15 15:32] LABS: Basophils % (A) 0 %; Eosinophils # (A) 0.3 k/uL (0-0.7); Eosinophils % (A) 3 %; HCT 40.1 % (34.0-46.0); Lymphocytes # (A) 2.4 k/uL (1.0-4.8); Lymphocytes % (A) 25 %; MCH 31.6 pg (25.0-35.0); MCHC 32.5 g/dL (31.0-37.0); MCV 97.4 fL (80.0-100.0); Mean Platelet Volume 8.7; Monocytes # (A) 0.6 k/uL (0-1.0); Monocytes % (A) 6 %; Neutrophils # (A) 6.4 k/uL (1.3-7.7); Neutrophils % (A) 65 %; Platelet Count 284 k/uL (150-450); RBC 4.12 m/uL (3.80-5.40); RDW 11.8 % (11.5-15.5); WBC 9.9 k/uL (3.8-10.6)
[2022-12-15 15:45] LABS: ALT 47 U/L (4-34); AST 79 U/L (14-36); African American GFR (CKD) 81 (>60 ml/min/1.73 sqM); Alkaline Phosphatase 92 U/L (38-126); Anion Gap 13 mmol/L; Blood Urea Nitrogen 17 mg/dL (7-17); Calcium 9.8 mg/dL (8.4-10.2); Carbon Dioxide 21 mmol/L (22-30); Chloride 103 mmol/L (98-107); Glucose 200 mg/dL (74-99); Magnesium 1.1 mg/dL (1.6-2.3); Non-African American GFR(CKD) 71 (>60 ml/min/1.73 sqM); Potassium 4.5 mmol/L (3.5-5.1); Sodium 137 mmol/L (137-145); Total Bilirubin 0.7 mg/dL (0.2-1.3); Total Protein 6.9 g/dL (6.3-8.2)
[2022-12-15 15:55] LABS: INR 0.9 (<1.2); Partial Thromboplastin Time 21.6 sec (22.0-30.0)
[2022-12-15 15:57] LABS: Prothrombin Time 9.7 sec (9.0-12.0)
--- NOTE | 2022-12-15 16:00 | ED ---
General Adult HPI - General Chief complaint: Chest Pain Stated complaint: Chest Pain Time Seen by Provider: 12/15/22 15:07 Source: EMS Mode of arrival: EMS Limitations: no limitations - History of Present Illness Initial comments: Dictation was produced using [employer] dictation software. please excuse any grammatical, word or spelling errors. Chief Complaint: 72-year-old female presents to the emergency department for chest pain History of Present Illness: Patient's 72-year-old female she has past medical history of coronary artery disease presents to the emergency department today for chest pain. She was at home when all of a sudden she had a chest pressure. She was associated with diaphoresis and nausea. She took nitroglycerin. She states that her pain did not improve right away. EMS was called patient was given aspirin. After several minutes her pain resolved. She has known coronary artery history. She has no coronary artery stents. She's been followed closely by financial service rep. The ROS documented in this emergency department record has been reviewed and confirmed by me. Those systems with pertinent positive or negative responses have been documented in the HPI. All other systems are other negative and/or noncontributory. - Related Data Home Medications Medication Instructions Recorded Confirmed Atorvastatin [Lipitor] 40 mg PO DAILY 10/31/15 08/13/21 Cholecalciferol [Vitamin D3 (25 1,000 unit PO DAILY 10/31/15 08/13/21 Mcg = 1000 Iu)] Glimepiride [Amaryl] 2 mg PO DAILY 10/31/15 08/13/21 Losartan [Cozaar] 50 mg PO QAM 10/31/15 08/13/21 metFORMIN HCL [Glucophage] 1,000 mg PO BID 10/31/15 08/13/21 Diltiazem Cd [Cardizem CD] 240 mg PO QAM 05/26/18 08/13/21 Isosorbide Mononitrate ER [Imdur] 60 mg PO DAILY 05/26/18 08/13/21 amLODIPine [Norvasc] 5 mg PO QAM 05/26/18 08/13/21 [facility] 650 mg PO DAILY 06/10/18 08/13/21 Metoprolol Succinate [Toprol Xl] 50 mg PO DAILY 06/12/18 08/13/21 Apixaban [Eliquis] 5 mg PO BID 07/24/21 08/13/21 Atorvastatin [Lipitor] 40 mg PO DAILY 07/24/21 08/13/21 Famotidine [Pepcid] 20 mg PO DAILY 07/24/21 08/13/21 Glimepiride [Amaryl] 2 mg PO [id number] 07/24/21 08/13/21 Isosorbide Mononitrate ER [Imdur] 60 mg PO BID 07/24/21 08/13/21 Previous Rx's Medication Instructions Recorded Famotidine [Pepcid] 20 mg PO DAILY #30 tab 02/24/18 Nitroglycerin Sl Tabs [Nitrostat] 0.4 mg SUBLINGUAL Q5M PRN #25 tab 02/24/18 Allergies Allergy/AdvReac Type Severity Reaction Status Date / Time hydrocodone [From [place]] Allergy Nausea & Verified 08/13/21 07:13 Vomiting Sulfa (Sulfonamide Allergy Itching,fev Verified 08/13/21 07:13 Antibiotics) er tramadol Allergy Hallucinati Verified 08/13/21 07:13 ons Review of Systems ROS Statement: Those systems with pertinent positive or pertinent negative responses have been documented in the HPI. ROS Other: All systems not noted in ROS Statement are negative. Past Medical History Past Medical History: Coronary Artery Disease (CAD), Chest Pain / Angina, Diabetes Mellitus, Eye Disorder, Hyperlipidemia, Hypertension, Myocardial Infarc tion (IN), Osteoarthritis (OA), Pneumonia Additional Past Medical History / Comment(s): Currently wearing heart monitor for 30 days. "Had trouble with her heart and low magnesium levels in May 2018." Bilateral cataracts starting Last Myocardial Infarction Date:: 2018 History of Any Multi-Drug Resistant Organisms: None Reported Past Surgical History: Appendectomy, Bladder Surgery, Cholecystectomy, Heart Catheterization, Hysterectomy, Joint Replacement, Orthopedic Surgery Additional Past Surgical History / Comment(s): Cardiac caths, arthroscopy left knee x3, total left knee arthroplasty, right hand ring finger and thumb joint replacements, D&C, multiple ganglion cystectomies, diagnostic laparoscopy with lysis of adhesions, colonoscopies and last one had benign polypecotmy, bladder suspension. Past Anesthesia/Blood Transfusion Reactions: Motion Sickness, Postoperative Nausea & Vomiting (PONV) Past Psychological History: No Psychological Hx Reported Smoking Status: Former smoker Past Alcohol Use History: Rare Past Drug Use History: None Reported - Past Family History Mother Family Medical History: Dementia Additional Family Medical History / Comment(s): Mother of dementia at the age of 92 yrs. There were several family members on her side with dementia. Sister(s) Family Medical History: Cancer, Deep Vein Thrombosis (DVT) Additional Family Medical History / Comment(s): Pt had 2 sisters with DVTs and one of the sisters has history of Prinzmetal angina. Colon Cancer X 1 sister. Father Family Medical History: Myocardial Infarction (IN) Additional Family Medical History / Comment(s): Father of a IN at the age of 63 yrs. Father's 7 siblings all had heart disease/MIs Son(s) Family Medical History: No Reported History General Exam - General Exam Comments Initial Comments: PHYSICAL EXAM: General Impression: Alert and oriented x3, not in acute distress HEENT: Normocephalic atraumatic, extra-ocular movements intact, pupils equal and reactive to light bilaterally, mucous membranes moist. Cardiovascular: Heart regular rate and rhythm Chest: Able to complete full sentences, no retractions, no tachypnea Abdomen: abdomen soft, non-tender, non-distended, no organomegaly Musculoskeletal: Pulses present and equal in all extremities, no peripheral edema Motor: no focal deficits noted Neurological: CN II-XII grossly intact, no focal motor or sensory deficits noted Skin: Intact with no visualized rashes Psych: Normal affect and mood Limitations: no limitations Course Vital Signs 12/15/22 12/15/22 14:50 14:56 Temperature 98.1 F Pulse Rate 61 Pulse Rate [ 56 L Candy Dipper ] Respiratory 18 Rate Blood Pressure 129/60 O2 Sat by Pulse 96 Oximetry EKG Findings - EKG Comments: EKG Findings:: My EKG interpretation: Ventricular rate 50, sinus bradycardia,. Elbow to 30, QRS 11, QTC 41. No GA prolongation, no QTC prolongation, no ST or T-wave changes noted. EKG compared to 05/26/2018 showing no changes. Overall, this EKG is unremarkable Medical Decision Making - Medical Decision Making Was pt. sent in by a medical professional or institution (, PA, FILAMENT WELDER, urgent care, hospital, or snf...) When possible be specific @ -No Did you speak to anyone other than the patient for history (EMS, parent, family, police, friend...)? What history was obtained from this source @ -No Did you review nursing and triage notes (agree or disagree)? Why? @ -I reviewed and agree with nursing and triage notes Were old charts reviewed (outside hosp., previous admission, EMS record, old EKG, old radiological studies, urgent care reports/EKG's, snf records)? Report findings @ -No old charts were reviewed Differential Diagnosis (chest pain, altered mental status, abdominal pain women, abdominal pain men, vaginal bleeding, musculoskeletal, weakness, fever, dyspnea, syncope, headache, dizziness, GI bleed, back pain, seizure, CVA, palpatations, mental health)? @ -Differential Chest Pain: Stable Angina, Unstable Angina, STEMI, NSTEMI Aortic Dissection, Pneumothorax, Musculoskeletal, Esophageal Spasm GERD, Cholecystitis, Pancreatitis, Zoster, this is not meant to be an all-inclusive list. EKG interpreted by me (3pts min.). @ -See above X-rays interpreted by me (1pt min.). @ -Chest x-ray is unremarkable CT interpreted by me (1pt min.). @ -None done U/S interpreted by me (1pt. min.). @ -None done What testing was considered but not performed or refused? (CT, X-rays, U/S, labs)? Why? @ -None What meds were considered but not given or refused? Why? @ -None Did you discuss the management of the patient with other professionals (professionals i.e. , PA, FILAMENT WELDER, lab, RT, psych nurse, manager social media, commissioning specialist, teacher, evp chief exploration officer, pillowcase cleaner)? Give summary @ -Case discussed with Dr. Hayes for admission Was smoking cessation discussed for >3mins.? @ -No Was critical care preformed (if so, how long)? @ -No Were there social determinants of health that impacted care today? How? (Homelessness, low income, unemployed, alcoholism, drug addiction, transportation, low edu. Level, literacy, decrease access to med. care, prison, rehab)? @ -No Was there de-escalation of care discussed even if they declined (Discuss DNR or withdrawal of care, Hospice)? DNR status @ -No What co-morbidities impacted this encounter? (DM, HTN, Smoking, COPD, CAD, Cancer, CVA, ARF, Chemo, Hep., AIDS, mental health diagnosis, sleep apnea, mor bid obesity)? @ -None Was patient admitted / discharged? Hospital course, mention meds given and route, prescriptions, significant lab abnormalities, going to OR and other pertinent info. @ -72 Old female with known history coronary artery disease presents to the ER for chest pain. Her presentation is concerning for acute coronary syndrome. Vital signs upon arrival are within acceptable limits. EKG shows no signs of ischemia or infarction. Laboratory evaluation is unremarkable. Troponin is negative. Patient be admitted to observation with cardiology consultation. Patient took aspirin prehospital. Magnesium 1.1. She is given magnesium replacement. Undiagnosed new problem with uncertain prognosis? @ -No Drug Therapy requiring intensive monitoring for toxicity (Heparin, Nitro, Insulin, Cardizem)? @ -No Were any procedures done? @ -No Diagnosis/symptom? Acute, or Chronic, or Acute on Chronic? Uncomplicated (without systemic symptoms) or Complicated (systemic symptoms)? @ -Chest pain Side effects of treatment? @ -No Exacerbation, Progression, or Severe Exacerbation? @ -No Poses a threat to life or bodily function? How? (Chest pain, [place], [place], pneumonia, PE, COPD, DKA, ARF, appy, cholecystitis, CVA, Diverticulitis, Homicidal, Suicidal, threat to staff... and all critical care pts) @ -yes - Lab Data Result diagrams: 12/15/22 15:11 12/15/22 15:11 Lab Results 12/15/22 12/15/22 12/15/22 Range/Units 15:11 15:11 15:11 WBC 9.9 (3.8-10.6) k/uL RBC 4.12 (3.80-5.40) m/uL Hgb 13.0 (11.4-16.0) gm/dL Hct 40.1 (34.0-46.0) % MCV 97.4 (80.0-100.0) fL MCH 31.6 (25.0-35.0) pg MCHC 32.5 (31.0-37.0) g/dL RDW 11.8 (11.5-15.5) % Plt Count 284 (150-450) k/uL MPV 8.7 Neutrophils % 65 % Lymphocytes % 25 % Monocytes % 6 % Eosinophils % 3 % Basophils % 0 % Neutrophils # 6.4 (1.3-7.7) k/uL Lymphocytes # 2.4 (1.0-4.8) k/uL Monocytes # 0.6 (0-1.0) k/uL Eosinophils # 0.3 (0-0.7) k/uL Basophils # 0.0 (0-0.2) k/uL PT 9.7 (9.0-12.0) sec INR 0.9 (<1.2) APTT 21.6 L (22.0-30.0) sec Sodium 137 (137-145) mmol/L Potassium 4.5 (3.5-5.1) mmol/L Chloride 103 (98-107) mmol/L Carbon Dioxide 21 L (22-30) mmol/L Anion Gap 13 mmol/L BUN 17 (7-17) mg/dL Creatinine 0.83 (0.52-1.04) mg/dL Est GFR (CKD-EPI)AfAm 81 (>60 ml/min/1.73 sqM) Est GFR (CKD-EPI)NonAf 71 (>60 ml/min/1.73 sqM) Glucose 200 H (74-99) mg/dL Calcium 9.8 (8.4-10.2) mg/dL Magnesium 1.1 L (1.6-2.3) mg/dL Total Bilirubin 0.7 (0.2-1.3) mg/dL AST 79 H (14-36) U/L ALT 47 H (4-34) U/L Alkaline Phosphatase 92 (38-126) U/L Troponin I (0.000-0.034) ng/mL Total Protein 6.9 (6.3-8.2) g/dL Albumin 4.0 (3.5-5.0) g/dL 12/15/22 Range/Units 15:11 WBC (3.8-10.6) k/uL RBC (3.80-5.40) m/uL Hgb (11.4-16.0) gm/dL Hct (34.0-46.0) % MCV (80.0-100.0) fL MCH (25.0-35.0) pg MCHC (31.0-37.0) g/dL RDW (11.5-15.5) % Plt Count (150-450) k/uL MPV Neutrophils % % Lymphocytes % % Monocytes % % Eosinophils % % Basophils % % Neutrophils # (1.3-7.7) k/uL Lymphocytes # (1.0-4.8) k/uL Monocytes # (0-1.0) k/uL Eosinophils # (0-0.7) k/uL Basophils # (0-0.2) k/uL PT (9.0-12.0) sec INR (<1.2) APTT (22.0-30.0) sec Sodium (137-145) mmol/L Potassium (3.5-5.1) mmol/L Chloride (98-107) mmol/L Carbon Dioxide (22-30) mmol/L Anion Gap mmol/L BUN (7-17) mg/dL Creatinine (0.52-1.04) mg/dL Est GFR (CKD-EPI)AfAm (>60 ml/min/1.73 sqM) Est GFR (CKD-EPI)NonAf (>60 ml/min/1.73 sqM) Glucose (74-99) mg/dL Calcium (8.4-10.2) mg/dL Magnesium (1.6-2.3) mg/dL Total Bilirubin (0.2-1.3) mg/dL AST (14-36) U/L ALT (4-34) U/L Alkaline Phosphatase (38-126) U/L Troponin I <0.012 (0.000-0.034) ng/mL Total Protein (6.3-8.2) g/dL Albumin (3.5-5.0) g/dL Disposition Clinical Impression: Chest pain Disposition: ADMITTED IP TO THIS HOSP Condition: Fair Referrals: Maurice Garcia MD [Primary Care Provider] - 1-2 days Decision Time: 16:01
[2022-12-15] MEDS ORDERED: NITROGLYCERIN SL TABS 0.4 MG TAB SUBLINGUAL PRN (16:22)
[2022-12-15] MEDS: MAGNESIUM SULFATE-D5W PMX 1 GM in DEXTROSE/WATER 1 100ML.BAG IVPB SCH ×2 (16:48→17:40)
[2022-12-15 21:13] LABS: Glucose,Whole Blood 160 mg/dL (70-110)
--- NOTE | 2022-12-15 22:22 | HP ---
HISTORY AND PHYSICAL CHIEF COMPLAINT: Chest pain. HISTORY OF PRESENT ILLNESS: This is a 72-year-old woman with a past medical history of multiple medical problems including CAD, being followed by Dr. Maurice Garcia and as well as Dr. Wells in the outpatient, is complaining of chest pain. The patient had heaviness, which lasted for half an hour and also had some nausea. The patient also had pain on the right ear. The patient also had recent ear ache and was taking amoxicillin. There is no history of any fever, rigors, or chills. The workup is in progress. The patient is still in the ER. PAST MEDICAL HISTORY: Reviewed include CAD. Rest of the history and rest of the chart is also reviewed. HOME MEDICATIONS: Reviewed include metformin. Doses and rest of medications noted. ALLERGIES: Reviewed include hydrocodone. Rest of the allergies noted. FAMILY HISTORY: History of dementia. SOCIAL HISTORY: Previous history of smoking. REVIEW OF SYSTEMS: 14-point review is negative except as mentioned earlier. PHYSICAL EXAMINATION: VITAL SIGNS: Pulse 56, blood pressure 110/62, respirations 18. CHEST: Clear to auscultation. CARDIOVASCULAR: S1, S2. RESPIRATIONS: Breath sounds diminished at the bases. ABDOMEN: Soft. NERVOUS SYSTEM: Nonfocal. LABORATORY DATA: Reviewed. ASSESSMENT: 1. Chest pain, possible unstable angina. 2. Elevated AST, ALT. 3. History of coronary artery disease. 4. Diabetes mellitus type 2. 5. Hypertension. 6. Hyperlipidemia. 7. Multiple medical issues. RECOMMENDATIONS AND DISCUSSION: This is a 72-year-old woman, who presented with multiple complex medical issues, we will monitor the patient closely. We will rule out myocardial infarction. Cardiology consultation. Repeat enzyme testing. Baseline labs. Resume home medications once they are confirmed. Prognosis guarded. Further recommendations to follow. See orders for further details. Cardiology evaluation. MMODL / IJN: [id number] /
[2022-12-15] MEDS ORDERED: Acetaminophen-Codeine 300-30mg TAB PO PRN (23:18)
[2022-12-16 04:42] VITALS: TEMP 97.8
[2022-12-16 07:33] VITALS: BP 128/67; PULSE 60; RESP 18
[2022-12-16] MEDS ORDERED: DOBUTamine DRIP for NUC MED 500 MG in DEXTROSE/WATER 1 250ML.BAG IV PRN (08:36)
[2022-12-16] MEDS ORDERED: amLODIPine 5 MG TAB PO SCH (09:00)
[2022-12-16] MEDS ORDERED: DILTIAZEM CD 240 MG CAP.ER.24H PO SCH (09:00)
[2022-12-16] MEDS ORDERED: APIXABAN 5 MG TAB PO SCH (09:00)
[2022-12-16] MEDS ORDERED: METOPROLOL SUCCINATE (ER) 50 MG TAB.ER.24H PO SCH (09:00)
[2022-12-16] MEDS ORDERED: DAPAGLIFLOZIN PROPANEDIOL 5 MG TABLET PO SCH (09:00)
[2022-12-16] MEDS ORDERED: ASPIRIN 325 MG TAB PO SCH (09:00)
[2022-12-16 10:28] LABS: Chol/HDL Ratio 3.31 Ratio; LDL Cholesterol,Calculated 44.2 mg/dL (0.0-131.0)
--- NOTE | 2022-12-16 10:36 | P.CRDCN ---
History of Present Illness History of present illness: HISTORY OF PRESENT ILLNESS: This is a 72-year-old female with a past medical history significant for minimal coronary artery disease, hypertension, hyperlipidemia, diabetes, and paroxysmal atrial fibrillation. Patient follows in the office with Dr. Wells. We have been asked to see the patient in consultation for chest pain. Patient examined at the bedside. Patient states yesterday around 1:30 in the afternoon she began to have chest pain. She states the pain was in the middle of her chest. She states that she took a sublingual nitro at that time. She reports taking her blood pressure and states it was reading 50s/30s. She states that she went to the couch to lay down. She states that when she sat up she was nauseated and extremity diaphoretic. At that time her called 911. She also reports on Friday she was having some pain in her right ear. She states the pain started on the right side of her head and radiated down to her ear. She i nitially thought she was having an earache. She currently denies any pain in her ear at this time. She currently denies chest pain or pressure. She denies shortness of breath. She is a nonsmoker. * EKG reveals sinus mechanism with evidence of old inferior myocardial infarction; similar to previous EKG * Chest xray negative for acute process * Laboratory data: WBC 9.9. Hemoglobin 13.0. Platelet count 284. Sodium 137. Potassium 4.5. BUN 17. Creatinine 0.83. Troponin negative 3. * Current home cardiac medications include Eliquis 5mg BID, Jardiance 10mg daily, Cardizem 120 mg at night, amlodipine 5 mg daily, metoprolol succinate 50 mg daily, and Lipitor 40 mg at night * Most recent echocardiogram obtained in May 2018 revealed normal ejection fraction, mild MR, mild AR * Patient underwent stress testing in October 2021 which was negative for ischemia * Cardiac catheterization history: February 2018 revealing minimal coronary artery disease REVIEW OF SYSTEMS: At the time of my exam: CONSTITUTIONAL: Denies fever or chills. HEENT: Denies blurred vision, vision changes, or eye pain. Denies hemoptysis CARDIOVASCULAR: Denies chest pain. Denies orthopnea. Denies PND. Denies palpitations RESPIRATORY: Denies shortness of breath. GASTROINTESTINAL: Denies abdominal pain. Denies nausea or vomiting. HEMATOLOGIC: Denies bleeding disorders. GENITOURINARY: Denies any blood in urine. SKIN: Denies pruitis. Denies rash. PHYSICAL EXAM: VITAL SIGNS: Reviewed. GENERAL: Well-developed in no acute distress. HEENT: Head is normocephalic. Pupils are equal, round. Sclerae anicteric. Mucous membranes of the mouth are moist. Neck supple. No JVD or thyromegaly LUNGS: Respirations even and unlabored. Lungs essentially clear to auscultation bilaterally. HEART: Regular rate and rhythm. S1 and S2 heard. ABDOMEN: Soft. Nondistended. Nontender. EXTREMITIES: Normal range of motion. No clubbing or cyanosis. Peripheral pulses intact. No lower extremity edema NEUROLOGIC: Awake and alert. Oriented x 3. ASSESSMENT: Chest pain, troponins negative 3 Paroxysmal atrial fibrillation Minimal coronary artery disease, per cardiac catheterization in 2018 Hypertension Hyperlipidemia Diabetes PLAN: An acute coronary event has been ruled out Obtain 2-D echo to assess cardiac structure and function Resume home cardiac medications Patient to undergo dobutamine stress test today to assess for ischemia If negative, the patient may be discharged home today from a cardiac standpoint Nurse practitioner note has been reviewed by physician. Signing provider agrees with the documented findings, assessment, and plan of care. Past Medical History Past Medical History: Coronary Artery Disease (CAD), Chest Pain / Angina, Diabetes Mellitus, Eye Disorder, Hyperlipidemia, Hypertension, Myocardial Infarction ([place]), Osteoarthritis (OA), Pneumonia Additional Past Medical History / Comment(s): Currently wearing heart monitor for 30 days. "Had trouble with her heart and low magnesium levels in May 2018." Bilateral cataracts starting Last Myocardial Infarction Date:: 2018 History of Any Multi-Drug Resistant Organisms: None Reported Past Surgical History: Appendectomy, Bladder Surgery, Cholecystectomy, Heart Catheterization, Hysterectomy, Joint Replacement, Orthopedic Surgery Additional Past Surgical History / Comment(s): Cardiac caths, arthroscopy left knee x3, total left knee arthroplasty, right hand ring finger and thumb joint replacements, D&C, multiple ganglion cystectomies, diagnostic laparoscopy with lysis of adhesions, colonoscopies and last one had benign polypecotmy, bladder suspension. Past Anesthesia/Blood Transfusion Reactions: Motion Sickness, Postoperative [place] & Vomiting (PONV) Past Psychological History: No Psychological Hx Reported Additional Psychological History / Comment(s): Pt resides with her spouse. She is independent. She is retired from banking. Smoking Status: Former smoker Past Alcohol Use History: Rare Additional Past Alcohol Use History / Comment(s): Started smoking occcasionally in 1966, was an on and off smoker sometimes quitting for years and then finally quit for good in 1994. Past Drug Use History: None Reported - Past Family History Mother Family Medical History: Dementia Additional Family Medical History / Comment(s): Mother of dementia at the age of 92 yrs. There were several family members on her side with dementia. Sister(s) Family Medical History: Cancer, Deep Vein Thrombosis (DVT) Additional Family Medical History / Comment(s): Pt had 2 sisters with DVTs and one of the sisters has history of Prinzmetal angina. Colon Cancer X 1 sister. Father Family Medical History: Myocardial Infarction ([place]) Additional Family Medical History / Comment(s): Father of a [place] at the age of 63 yrs. Father's 7 siblings all had heart disease/MIs Son(s) Family Medical History: No Reported History Medications and Allergies Home Medications Medication Instructions Recorded Confirmed Type Cholecalciferol [Vitamin D3 (25 25 mcg PO DAILY 10/31/15 12/15/22 History Mcg = 1000 Iu)] metFORMIN HCL [Glucophage] 1,000 mg PO BID 10/31/15 12/15/22 History Famotidine [Pepcid] 20 mg PO DAILY #30 tab 02/24/18 12/15/22 Rx Diltiazem Cd [Cardizem CD] 240 mg PO DAILY 05/26/18 12/15/22 History amLODIPine [Norvasc] 5 mg PO DIRECTED 05/26/18 12/15/22 History Metoprolol Succinate [Toprol Xl] 50 mg PO DAILY 06/12/18 12/15/22 History Apixaban [Eliquis] 5 mg PO DIRECTED 07/24/21 12/15/22 History Atorvastatin [Lipitor] 40 mg PO HS 07/24/21 12/15/22 History Empagliflozin [Jardiance] 10 mg PO DAILY 12/15/22 12/15/22 History Nitroglycerin Sl Tabs [Nitrostat] 0.4 mg SL Q5M PRN 12/15/22 12/15/22 History Pioglitazone [Actos] 15 mg PO DAILY 12/15/22 12/15/22 History dilTIAZem HCL 120 mg PO HS 12/15/22 12/15/22 History Allergies Allergy/AdvReac Type Severity Reaction Status Date / Time hydrocodone [From [place]] Allergy Nausea & Verified 12/15/22 18:22 Vomiting Sulfa (Sulfonamide Allergy Itching,fev Verified 12/15/22 18:22 Antibiotics) er tramadol Allergy Hallucinati Verified 12/15/22 18:22 ons Physical Exam Vitals: Vital Signs Temp Pulse Pulse Resp BP BP Pulse Ox 12/16/22 07:00 97.8 F 60 18 128/67 97 12/16/22 03:45 97.8 F 55 L 16 145/66 96 12/15/22 20:22 98.0 F 63 16 133/60 96 12/15/22 20:04 57 L 16 142/67 94 L 12/15/22 19:16 55 L 16 127/66 97 12/15/22 14:56 56 L 12/15/22 14:50 98.1 F 61 18 129/60 96 Intake and Output 12/15/22 12/16/22 12/16/22 22:59 06:59 14:59 Output Total 0 1 Balance 0 -1 Output: Urine 1 Emesis 0 Other: # Voids 1 Weight 69.309 kg Results 12/15/22 15:11 12/15/22 15:11 Cardiac Enzymes 12/15/22 12/15/22 12/15/22 Range/Units 15:11 15:11 18:59 AST 79 H (14-36) U/L Troponin I <0.012 <0.012 (0.000-0.034) ng/mL 12/15/22 Range/Units 21:46 AST (14-36) U/L Troponin I <0.012 (0.000-0.034) ng/mL Coagulation 12/15/22 Range/Units 15:11 PT 9.7 (9.0-12.0) sec APTT 21.6 L (22.0-30.0) sec CBC 12/15/22 Range/Units 15:11 WBC 9.9 (3.8-10.6) k/uL RBC 4.12 (3.80-5.40) m/uL Hgb 13.0 (11.4-16.0) gm/dL Hct 40.1 (34.0-46.0) % Plt Count 284 (150-450) k/uL Comprehensive Metabolic Panel 12/15/22 Range/Units 15:11 Sodium 137 (137-145) mmol/L Potassium 4.5 (3.5-5.1) mmol/L Chloride 103 (98-107) mmol/L Carbon Dioxide 21 L (22-30) mmol/L BUN 17 (7-17) mg/dL Creatinine 0.83 (0.52-1.04) mg/dL Glucose 200 H (74-99) mg/dL Calcium 9.8 (8.4-10.2) mg/dL AST 79 H (14-36) U/L ALT 47 H (4-34) U/L Alkaline Phosphatase 92 (38-126) U/L Total Protein 6.9 (6.3-8.2) g/dL Albumin 4.0 (3.5-5.0) g/dL Current Medications Generic Name Dose Route Start Last Admin Trade Name Freq PRN Reason Stop Dose Admin Acetaminophen/Codeine Phosphate 1 each 12/15/22 23:18 12/15/22 23:40 Acetaminophen-Codeine 300-30mg Tab PO 1 each Q8HR PRN Administration Pain Aspirin 325 mg 12/16/22 09:00 Aspirin 325 Mg Tab PO DAILY SHANIQUE Nitroglycerin 0.4 mg 12/15/22 16:22 Nitroglycerin Sl Tabs 0.4 Mg Tab SUBLINGUAL Q5M PRN Chest Pain Intake and Output 12/15/22 12/16/22 12/16/22 22:59 06:59 14:59 Output Total 0 1 Balance 0 -1 Output: Urine 1 Emesis 0 Other: # Voids 1 Weight 69.309 kg 12/15/22 15:11 12/15/22 15:11
[2022-12-16 11:49] LABS: Glucose,Whole Blood 140 mg/dL (70-110)
--- NOTE | 2022-12-16 13:38 | CA ---
Dobutamine Stress Echocardiogram Report Mylene Samano Age: 72 Gender: F : 1950 Exam Date: 12/16/2022 12:14 Exam Location: [facility] Ordering Physician: Eli Olivares Referring Physician: [id number] Control Officer: Kimberli Kirby RDCS Technologist: Ht (in): 64 Wt (lb): 152 Procedure CPT: Indication: CP ICD-9 Codes: Rhythm: Patient History: Atypical angina, Hyperlipidemia, Family history, Diabetes mellitus, Hypertension Cardiac Medications: Medications in past 24 hours: Contrast: Total Dose (mL): Stress Results Protocol: Peak Dose (???g/kg/min): Duration (min:sec): Atropine:(mg) Target HR: 125 Double Product: [id number] Resting HR: 63 Resting BP: 123 / 65 Peak HR: 126 Peak BP: 189 / 64 Max Predicted HR: 147 86 % Max Predicted HR Stress Summary: BP Response: Reason for Termination: target reached Cardiac Symptoms: ECG Analysis Resting EKG: Normal sinus rhythm, Resting ST/T wave changes Stress EKG: Non-diagnostic ECG response due to resting abnormalities Arrhythmia: None Echo Analysis Base Echo Analysis: Normal resting echocardiogram. Low Echo Anaylsis: Normal wall thickening and augmentation Peak Echo Analysis: Normal wall motion and thickening without any hypokinesis or dyskinesis Recovery Echo: Normal wall motion MEASUREMENTS (Male/Female) Normal Values CONCLUSIONS 1. Nondiagnostic electrocardiographic response to dobutamine secondary to baseline EKG abnormality 2. Normal stress echocardiogram with no evidence of stress- induced ischemia Dr. Malu Obregon MD (Electronically Signed) Final Date: 16 December 2022 13:37
--- NOTE | 2022-12-16 18:11 | CA ---
Transthoracic Echo Report Name: Mylene Samano Age: 72 Gender: F : 1950 Exam Date: 12/16/2022 12:47 Exam Location: [facility] Ht (in): 64 Wt (lb): 152 Ordering Physician: Eli Olivares Attending/Referring Phys: [id number], [place] Manager Payment Kimberli Kirby RDCS Procedure CPT: Indications: LV function, CP Cardiac Hx: Technical Quality: Fair Contrast 1: Total Dose (mL): Contrast 2: Total Dose (mL): MEASUREMENTS (Male / Female) Normal Values 2D ECHO LV Diastolic Diameter PLAX 3.9 cm 4.2 - 5.9 / 3.9 - 5.3 cm LV Systolic Diameter PLAX 2.4 cm IVS Diastolic Thickness 1.3 cm 0.6 - 1.0 / 0.6 - 0.9 cm LVPW Diastolic Thickness 1.2 cm 0.6 - 1.0 / 0.6 - 0.9 cm LV Relative Wall Thickness 0.6 RV Internal Dim ED PLAX 2.8 cm LA Volume 36.9 cm??? 18 - 58 / 22 - 52 cm??? M-MODE Aortic Root Diameter MM 2.7 cm LA Systolic Diameter MM 3.8 cm LA Ao Ratio MM 1.4 DOPPLER AV Peak Velocity 159.0 cm/s AV Peak Gradient 10.1 mmHg AV Mean Velocity 109.3 cm/s AV Mean Gradient 5.4 mmHg AV Velocity Time Integral 29.5 cm LVOT Peak Velocity 94.9 cm/s LVOT Peak Gradient 3.6 mmHg MV Area PHT 3.4 cm??? Mitral E Point Velocity 53.4 cm/s Mitral A Point Velocity 83.8 cm/s Mitral E to A Ratio 0.6 MV Deceleration Time 226.3 ms MV E' Velocity 5.8 cm/s Mitral E to MV E' Ratio 9.3 TR Peak Velocity 163.3 cm/s TR Peak Gradient 10.7 mmHg Right Ventricular Systolic Press 15.7 mmHg FINDINGS Left Ventricle Mildly increased left ventricular wall thickness. Left ventricular cavity size normal. Normal left ventricular systolic function with no obvious regional wall motion abnormalities. Left ventricular ejection fraction is estimated at 55-60 %. Right Ventricle Normal right ventricular size and function. Right ventricular systolic pressure within normal limits. Right Atrium Normal right atrial size. Left Atrium Normal left atrial size. Mitral Valve Structurally normal mitral valve. No mitral stenosis, or prolapse.trace mitral regurgitation. Aortic Valve No aortic valve stenosis or regurgitation. Tricuspid Valve Mild tricuspid regurgitation.structurally normal tricuspid valve. Pulmonic Valve Structurally normal pulmonic valve. Pericardium No pericardial effusion. Aorta Normal size aortic root and proximal ascending aorta. CONCLUSIONS 1. Normal left ventricle size and systolic function 2. Mild tricuspid regurgitation with no evidence of pulmonary hypertension Previewed by: Dr. Malu Obregon MD (Electronically Signed) Final Date: 16 December 2022 18:10
[2022-12-16] MEDS ORDERED: DILTIAZEM ORAL 60 MG TAB PO SCH (21:00)
[2022-12-16] MEDS ORDERED: ATORVASTATIN 40 MG TAB PO SCH (21:00)
== END 2022-12-16 14:08 | disposition home or self-care (01) ==
LOC: EC 14:48 → 6NMEDSUR 16:22
PROVIDERS: ADMIT Hospitalist; ATTEND Hospitalist
DX: R07.89 Other chest pain (principal); I25.10 Atherosclerotic heart disease of native coronary artery without angina pectoris; E11.9 Type 2 diabetes mellitus without complications; E78.5 Hyperlipidemia, unspecified; I10 Essential (primary) hypertension; I48.0 Paroxysmal atrial fibrillation; R74.01 Elevation of levels of liver transaminase levels; I25.2 Old myocardial infarction; Z87.891 Personal history of nicotine dependence; Z79.899 Other long term (current) drug therapy; Z79.84 Long term (current) use of oral hypoglycemic drugs; Z79.01 Long term (current) use of anticoagulants; Z88.2 Allergy status to sulfonamides; Z88.5 Allergy status to narcotic agent
CPT/HCPCS: 99285; 36415; 93005; 93306; 93351; 80061; 80053; 83735; 84484; 85025; 85610; 85730; 71046; G0378 ×2; J3475

== ENCOUNTER → 2023-07-29 | Outpatient (CLI) | payer MEDICARE ==
[2023-07-29 15:53] LABS: HCT 44.2 % (37.2-46.3); HGB 13.8 g/dL (12.0-15.0); MCH 31.1 pg (27.0-32.0); MCHC 31.2 g/dL (32.0-37.0); MCV 99.5 FL (80.0-97.0); Mean Platelet Volume 11.2 FL (9.5-12.2); NRBC Per 100 WBC 0 X 10*3/uL (0.00-0.01); Platelet Count 328 X 10*3/uL (140-440); RBC 4.44 X 10*6/uL (4.10-5.20); RDW 13.4 % (11.5-14.5); WBC 9.74 X 10*3/uL (4.50-10.00)
[2023-07-29 16:18] LABS: Blood Urea Nitrogen 20.8 mg/dL (9.0-27.0); Carbon Dioxide 25.2 mmol/L (21.6-31.8); Chloride 102 mmol/L (96-109); Potassium 4.8 mmol/L (3.5-5.5); Sodium 141 mmol/L (135-145)
== END | disposition home or self-care (01) ==
LOC: LABPAT 09:48
PROVIDERS: ATTEND Internal Medicine Interventional Cardiology
DX: Z01.812 Encounter for preprocedural laboratory examination (principal); R07.9 Chest pain, unspecified
CPT/HCPCS: 36415; 80051; 82565; 84520; 85027

== ENCOUNTER 2023-07-30 22:53 | Observation (INO) | payer MEDICARE ==
[2023-07-31 00:34] LABS: Basophils # (A) 0.1 k/uL (0-0.2); Basophils % (A) 1 %; Eosinophils # (A) 0.4 k/uL (0-0.7); Eosinophils % (A) 4 %; HGB 13.1 gm/dL (11.4-16.0); Lymphocytes % (A) 41 %; MCH 30.8 pg (25.0-35.0); MCHC 31.3 g/dL (31.0-37.0); MCV 98.3 fL (80.0-100.0); Mean Platelet Volume 8.4; Monocytes # (A) 0.6 k/uL (0-1.0); Monocytes % (A) 6 %; Neutrophils # (A) 4.5 k/uL (1.3-7.7); Neutrophils % (A) 46 %; Platelet Count 304 k/uL (150-450); RBC 4.27 m/uL (3.80-5.40); RDW 12.8 % (11.5-15.5); WBC 9.8 k/uL (3.8-10.6)
[2023-07-31 01:15] LABS: INR 0.9 (<1.2); Prothrombin Time 9.8 sec (10.0-12.5)
[2023-07-31 01:23] LABS: ALT 18 U/L (4-34); AST 22 U/L (14-36); African American GFR (CKD) >90 (>60 ml/min/1.73 sqM); Albumin 4.1 g/dL (3.5-5.0); Alkaline Phosphatase 98 U/L (38-126); Anion Gap 10 mmol/L; Blood Urea Nitrogen 24 mg/dL (7-17); Calcium 9.7 mg/dL (8.4-10.2); Carbon Dioxide 25 mmol/L (22-30); Chloride 104 mmol/L (98-107); Glucose 142 mg/dL (74-99); Non-African American GFR(CKD) 85 (>60 ml/min/1.73 sqM); Potassium 4.3 mmol/L (3.5-5.1); Sodium 139 mmol/L (137-145); Total Protein 6.9 g/dL (6.3-8.2)
--- NOTE | 2023-07-31 02:23 | ED ---
Chest Pain HPI - General Chief Complaint: Chest Pain Stated Complaint: chest pain Time Seen by Provider: 07/31/23 00:40 Source: patient Mode of arrival: ambulatory Limitations: no limitations - History of Present Illness Initial Comments: 73-year-old female with a known history of coronary artery disease presents to the ED with a chief complaint of chest pain. Patient states earlier tonight had an episode of pain/pressure in the middle of her chest lasting 2 to 3 hours. Reports that she took 2 nitro which seemed to relieve her pain. Patient also n otes some associated shortness of breath with this episode however at this time is now resolved. No abdominal pains. No change in bowel or bladder habits. No fever or chills with no other complaints at this time. Patient also reports that she is due for a heart cath with Dr. Wells next week. - Related Data Home Medications Medication Instructions Recorded Confirmed Cholecalciferol [Vitamin D3 (25 25 mcg PO DAILY 10/31/15 12/15/22 Mcg = 1000 Iu)] metFORMIN HCL [Glucophage] 1,000 mg PO BID 10/31/15 12/15/22 amLODIPine [Norvasc] 5 mg PO DIRECTED 05/26/18 12/15/22 Metoprolol Succinate [Toprol Xl] 50 mg PO DAILY 06/12/18 12/15/22 Apixaban [Eliquis] 5 mg PO DIRECTED 07/24/21 12/15/22 Atorvastatin [Lipitor] 40 mg PO HS 07/24/21 12/15/22 Empagliflozin [Jardiance] 10 mg PO DAILY 12/15/22 12/15/22 Nitroglycerin Sl Tabs [Nitrostat] 0.4 mg SL Q5M PRN 12/15/22 12/15/22 Pioglitazone [Actos] 15 mg PO DAILY 12/15/22 12/15/22 Previous Rx's Medication Instructions Recorded Famotidine [Pepcid] 20 mg PO DAILY #30 tab 02/24/18 Allergies Allergy/AdvReac Type Severity Reaction Status Date / Time hydrocodone [From [place]] Allergy Nausea & Verified 07/30/23 23:09 Vomiting Sulfa (Sulfonamide Allergy Itching,fev Verified 07/30/23 23:09 Antibiotics) er tramadol Allergy Hallucinati Verified 07/30/23 23:09 ons Review of Systems ROS Statement: Those systems with pertinent positive or pertinent negative responses have been documented in the HPI. ROS Other: All systems not noted in ROS Statement are negative. Past Medical History Past Medical History: Coronary Artery Disease (CAD), Chest Pain / Angina, Diabetes Mellitus, Eye Disorder, Hyperlipidemia, Hypertension, Myocardial Infarction ([place]), Osteoarthritis (OA), Pneumonia Additional Past Medical History / Comment(s): Currently wearing heart monitor for 30 days. "Had trouble with her heart and low magnesium levels in May 2018." Bilateral cataracts starting Last Myocardial Infarction Date:: 2018 History of Any Multi-Drug Resistant Organisms: None Reported Past Surgical History: Appendectomy, Bladder Surgery, Cholecystectomy, Heart Catheterization, Hysterectomy, Joint Replacement, Orthopedic Surgery Additional Past Surgical History / Comment(s): Cardiac caths, arthroscopy left knee x3, total left knee arthroplasty, right hand ring finger and thumb joint replacements, D&C, multiple ganglion cystectomies, diagnostic laparoscopy with lysis of adhesions, colonoscopies and last one had benign polypecotmy, bladder suspension.hand Past Anesthesia/Blood Transfusion Reactions: Motion Sickness, Postoperative Nausea & Vomiting (PONV) Past Psychological History: No Psychological Hx Reported Smoking Status: Former smoker Past Alcohol Use History: Rare Past Drug Use History: None Reported - Past Family History Mother Family Medical History: Dementia Additional Family Medical History / Comment(s): Mother of dementia at the age of 92 yrs. There were several family members on her side with dementia. Sister(s) Family Medical History: Cancer, Deep Vein Thrombosis (DVT) Additional Family Medical History / Comment(s): Pt had 2 sisters with DVTs and one of the sisters has history of Prinzmetal angina. Colon Cancer X 1 sister. Father Family Medical History: Myocardial Infarction ([place]) Additional Family Medical History / Comment(s): Father of a [place] at the age of 63 yrs. Father's 7 siblings all had heart disease/MIs Son(s) Family Medical History: No Reported History General Exam Limitations: no limitations General appearance: alert, in no apparent distress Eye exam: Present: normal appearance Neck exam: Present: normal inspection Respiratory exam: Present: normal lung sounds bilaterally Cardiovascular Exam: Present: regular rate GI/Abdominal exam: Present: soft Neurological exam: Present: alert, oriented X3 Skin exam: Present: warm, dry Course Vital Signs 04/07/31/23 07/31/23 23:09 00:54 02:00 Temperature 97.6 F Pulse Rate 58 L 58 L 53 L Pulse Rate [ 55 L Reel And Rewinder Operator ] Respiratory 16 16 16 Rate Blood Pressure 137/71 127/59 120/53 O2 Sat by Pulse 97 98 95 Oximetry Chest Pain MDM - MDM Was pt. sent in by a medical professional or institution (, PA, TOOL TROUBLE SHOOTER, urgent care, hospital, or detention...) When possible be specific @ -No Did you speak to anyone other than the patient for history (EMS, parent, family, police, friend...)? What history was obtained from this source @ -No Did you review nursing and triage notes (agree or disagree)? Why? @ -I reviewed and agree with nursing and triage notes Were old charts reviewed (outside hosp., previous admission, EMS record, old EKG, old radiological studies, urgent care reports/EKG's, detention records)? Report findings @ -No old charts were reviewed Differential Diagnosis (chest pain, altered mental status, abdominal pain women, abdominal pain men, vaginal bleeding, weakness, fever, dyspnea, syncope, headache, dizziness, GI bleed, back pain, seizure, CVA, palpatations, mental health, musculoskeletal)? @ -Differential Chest Pain: Stable Angina, Unstable Angina, STEMI, NSTEMI Aortic Dissection, Pneumothorax, Musculoskeletal, Esophageal Spasm GERD, Cholecystitis, Pancreatitis, Zoster, this is not meant to be an all-inclusive list. EKG interpreted by me (3pts min.). @ -EKG interpreted by me showing a sinus bradycardia at 51 bpm with nonspecific findings. MN 189, QRS 100, QT/QTc 423/401. X-rays interpreted by me (1pt min.). @ -Chest x-ray at this time is pending CT interpreted by me (1pt min.). @ -None done U/S interpreted by me (1pt. min.). @ -None done What testing was considered but not performed or refused? (CT, X-rays, U/S, labs)? Why? @ -None What meds were considered but not given or refused? Why? @ -None Did you discuss the management of the patient with other professionals (professionals i.e. , PA, TOOL TROUBLE SHOOTER, lab, RT, psych nurse, psychiatric social worker, confectionery cooker, teacher, hotel security officer, embedded case manager)? Give summary @ -No Was smoking cessation discussed for >3mins.? @ -No Was critical care preformed (if so, how long)? @ -No Were there social determinants of health that impacted care today? How? (Homelessness, low income, unemployed, alcoholism, drug addiction, transportation, low edu. Level, literacy, decrease access to med. care, retirement, rehab)? @ -No Was there de-escalation of care discussed even if they declined (Discuss DNR or withdrawal of care, Hospice)? DNR status @ -No What co-morbidities impacted this encounter? (DM, HTN, Smoking, COPD, CAD, Cancer, CVA, ARF, Chemo, Hep., AIDS, mental health diagnosis, sleep apnea, morbid obesity)? @ -Coronary artery disease, paroxysmal A-fib Was patient admitted / discharged? Hospital course, mention meds given and route, prescriptions, significant lab abnormalities, going to OR and other pertinent info. @ -Admission 73-year-old female presented to the ED with a chief complaint of chest pain. Patient reports 2 to 3-hour episode of midsternal chest pain/pressure without radiation. Also did note some associated shortness of breath. At this time, patient reports pain has resolved. Laboratory studies reviewed. Labs including CBC, CMP largely unremarkable. Initial troponin undetectable. Patient will be admitted to observation with consult to cardiology to rule out ACS. Discussed plan of care with patient and family who are in agreement. Undiagnosed new problem with uncertain prognosis? @ -No Drug Therapy requiring intensive monitoring for toxicity (Heparin, Nitro, Insulin, Cardizem)? @ -No Were any procedures done? @ -No Diagnosis/symptom? @ -Chest pain Acute, or Chronic, or Acute on Chronic? @ -Acute Uncomplicated (without systemic symptoms) or Complicated (systemic symptoms)? @ -Uncomplicated Side effects of treatment? @ -No Exacerbation, Progression, or Severe Exacerbation? @ -No Poses a threat to life or bodily function? How? (Chest pain, [place], [place], pneumonia, PE, COPD, DKA, ARF, appy, cholecystitis, CVA, Diverticulitis, Homicidal, Suicidal, threat to staff... and all critical care pts) @ -Possibly however unlikely at this time Disposition Clinical Impression: Chest pain Disposition: ADMITTED IP TO THIS HOSP Condition: Good Referrals: Breezy Garcia MD [STAFF PHYSICIAN] - 1-2 days Time of Disposition: 02:00
[2023-07-31] MEDS ORDERED: NITROGLYCERIN SL TABS 0.4 MG TAB SUBLINGUAL PRN ×3 (03:09→09:05)
[2023-07-31] MEDS: ASPIRIN 81 MG PO STA (04:20)
--- NOTE | 2023-07-31 06:35 | XR ---
EXAM: XR Chest, 2 Views CLINICAL HISTORY: ITS.REASON XR Reason: chest pain TECHNIQUE: Frontal and lateral views of the chest. COMPARISON: Comparison made to prior chest x-ray from December 15, 2022. FINDINGS: Lungs: Mild to moderate peribronchial thickening of the central and lower lobe bronchi. No consolidation. Pleural space: Unremarkable. No pneumothorax. Heart: Unremarkable. No cardiomegaly. Mediastinum: Unremarkable. Normal mediastinal contour. Bones/joints: Unremarkable. No acute fracture. IMPRESSION: Findings concerning for bronchitis, which may be an infectious or inflammatory etiologies. No consolidation or pleural effusion.
[2023-07-31] MEDS ORDERED: HEPARIN SODIUM,PORCINE (1 ML) 2,500 UNIT in SODIUM CHLORIDE 0.9% 250 ML IRRIGATION PRN (07:00)
[2023-07-31] MEDS ORDERED: HEPARIN SODIUM,PORCINE 10,000 UNIT in SODIUM CHLORIDE 0.9% 1,000 ML IRRIGATION PRN (07:00)
[2023-07-31] MEDS ORDERED: ALPRAZolam 0.5 MG TAB PO PRN ×2 (08:37→09:05)
[2023-07-31] MEDS ORDERED: ALPRAZolam 0.25 MG TAB PO PRN ×2 (08:37→09:05)
[2023-07-31] MEDS ORDERED: SODIUM CHLORIDE 0.9% 1,000 ML in EMPTY BAG 1 BAG IV SCH (08:45)
[2023-07-31] MEDS: ATORVASTATIN 80 MG TAB PO STA (09:20)
[2023-07-31] MEDS: ASPIRIN 325 MG TAB PO STA (09:20)
--- NOTE | 2023-07-31 09:44 | P.CRDCN ---
History of Present Illness History of present illness: HISTORY OF PRESENT ILLNESS: This is a 73-year-old female with a past medical history significant for minimal CAD, paroxysmal atrial fibrillation, hypertension, hyperlipidemia, valvular he art disease, and diabetes. Patient follows in the office with Dr. Wells. We have been asked to see the patient in consultation for chest pain. Patient examined at the bedside. The patient recently underwent myocardial perfusion imaging stress test which came in to be abnormal showing reversible ischemia. The patient was scheduled to undergo outpatient cardiac catheterization on 08/06/2023. She presented to the hospital yesterday with a chief complaint of chest pain. She states that she had pain in the middle of her chest. She denied any radiation of the pain. She states that she took 2 nitro at home which did not really help her. She denies chest pain or pressure at the time of examination. She denies any shortness of breath. The patient does report over the past 2 months she has been having palpitations with her heart rates going up into the 170s. She denies any palpitations at the time of examination. Denies any dizziness or lightheadedness. Vital signs are stable. DIAGNOSTICS: - EKG reveals sinus mechanism with Q waves inferiorly. - Chest xray findings concerning for bronchitis, which may be infectious or inflammatory etiology. No consolidation or pleural effusion.. - Laboratory data: WBC 9.8. Hemoglobin 13.1. Platelet count 304. Sodium 139. Potassium 4.3. BUN 24. Creatinine 0.71. Troponin negative x 3 - Current home cardiac medications include Eliquis 5 mg twice a day, amlodipine 40 mg at night, Norvasc 5 mg twice a day, metoprolol succinate 50 mg twice a day. - Most recent echocardiogram obtained in June 2023 revealed normal EF, mild MR, mild AR - Cardiac catheterization history: February 2018 revealing minimal CAD -Patient underwent Lexiscan stress test in the office on July 07, 2023 revealing abnormal myocardial perfusion imaging with evidence of reversible defect of small size and mild intensity anteriorly REVIEW OF SYSTEMS: At the time of my exam: CONSTITUTIONAL: Denies fever or chills. HEENT: Denies blurred vision, vision changes, or eye pain. Denies hemoptysis CARDIOVASCULAR: Denies chest pain. Denies orthopnea. Denies PND. Denies palpitations RESPIRATORY: Denies shortness of breath. GASTROINTESTINAL: Denies abdominal pain. Denies nausea or vomiting. HEMATOLOGIC: Denies bleeding disorders. GENITOURINARY: Denies any blood in urine. SKIN: Denies pruitis. Denies rash. PHYSICAL EXAM: VITAL SIGNS: Reviewed. GENERAL: Well-developed in no acute distress. HEENT: Head is normocephalic. Pupils are equal, round. Sclerae anicteric. Mucous membranes of the mouth are moist. Neck supple. No JVD or thyromegaly LUNGS: Respirations even and unlabored. Lungs essentially clear to auscultation bilaterally. HEART: Regular rate and rhythm. S1 and S2 heard. Systolic murmur noted ABDOMEN: Soft. Nondistended. Nontender. EXTREMITIES: Normal range of motion. No clubbing or cyanosis. Peripheral pulses intact. No lower extremity edema NEUROLOGIC: Awake and alert. Oriented x 3. ASSESSMENT: Chest pain Minimal CAD per cardiac catheterization 2018 Paroxysmal atrial fibrillation Hypertension Hyperlipidemia Diabetes Valvular heart disease including mild MR and mild AR PLAN: An acute coronary event has been ruled out Obtain 2D echo to assess cardiac structure and function Resume home cardiac medications Hold Eliquis N.p.o. at midnight Patient to undergo cardiac catheterization tomorrow with Dr. Wells Further recommendations pending patient course Nurse practitioner note has been reviewed by physician. Signing provider agrees with the documented findings, assessment, and plan of care documented by SILVER BRAZER as a scribe. Past Medical History Past Medical History: Coronary Artery Disease (CAD), Chest Pain / Angina, Diabetes Mellitus, Eye Disorder, Hyperlipidemia, Hypertension, Myocardial Infarction (OR), Osteoarthritis (OA), Pneumonia Additional Past Medical History / Comment(s): Currently wearing heart monitor for 30 days. "Had trouble with her heart and low magnesium levels in May 2018." Bilateral cataracts starting Last Myocardial Infarction Date:: 2018 History of Any Multi-Drug Resistant Organisms: None Reported Past Surgical History: Appendectomy, Bladder Surgery, Cholecystectomy, Heart Catheterization, Hysterectomy, Joint Replacement, Orthopedic Surgery Additional Past Surgical History / Comment(s): Cardiac caths, arthroscopy left knee x3, total left knee arthroplasty, right hand ring finger and thumb joint replacements, D&C, multiple ganglion cystectomies, diagnostic laparoscopy with lysis of adhesions, colonoscopies and last one had benign polypecotmy, bladder suspension.hand Past Anesthesia/Blood Transfusion Reactions: Motion Sickness, Postoperative Nausea & Vomiting (PONV) Past Psychological History: No Psychological Hx Reported Additional Psychological History / Comment(s): Pt resides with her spouse. She is independent. She is retired from banking. Smoking Status: Former smoker Past Alcohol Use History: Rare Additional Past Alcohol Use History / Comment(s): Started smoking occcasionally in 1966, was an on and off smoker sometimes quitting for years and then finally quit for good in 1994. Past Drug Use History: None Reported - Past Family History Mother Family Medical History: Dementia Additional Family Medical History / Comment(s): Mother of dementia at the age of 92 yrs. There were several family members on her side with dementia. Sister(s) Family Medical History: Cancer, Deep Vein Thrombosis (DVT) Additional Family Medical History / Comment(s): Pt had 2 sisters with DVTs and one of the sisters has history of Prinzmetal angina. Colon Cancer X 1 sister. Father Family Medical History: Myocardial Infarction (OR) Additional Family Medical History / Comment(s): Father of a OR at the age of 63 yrs. Father's 7 siblings all had heart disease/MIs Son(s) Family Medical History: No Reported History Medications and Allergies Home Medications Medication Instructions Recorded Confirmed Type metFORMIN HCL [Glucophage] 1,000 mg PO BID 10/31/15 07/31/23 History Famotidine [Pepcid] 20 mg PO DAILY #30 tab 02/24/18 07/31/23 Rx amLODIPine [Norvasc] 5 mg PO BID 05/26/18 07/31/23 History Metoprolol Succinate [Toprol Xl] 50 mg PO BID 06/12/18 07/31/23 History Apixaban [Eliquis] 5 mg PO BID 07/24/21 07/31/23 History Atorvastatin [Lipitor] 40 mg PO HS 07/24/21 07/31/23 History Nitroglycerin Sl Tabs [Nitrostat] 0.4 mg SL Q5M PRN 12/15/22 07/31/23 History Pioglitazone [Actos] 15 mg PO DAILY 12/15/22 07/31/23 History Acetaminophen/Diphenhydramine 0.5 tab PO HS 07/31/23 07/31/23 History [Tylenol PM 500-25mg] Cholecalciferol [Vitamin D3 (25 25 mcg PO DAILY 07/31/23 07/31/23 History Mcg = 1000 Iu)] Empagliflozin [Jardiance] 25 mg PO DAILY 07/31/23 07/31/23 History Allergies Allergy/AdvReac Type Severity Reaction Status Date / Time Sulfa (Sulfonamide Allergy Itching,fev Verified 07/31/23 08:30 Antibiotics) er amiodarone AdvReac Nausea & Verified 07/31/23 08:30 Vomiting hydrocodone [From [place]] AdvReac Nausea & Verified 07/31/23 08:30 Vomiting tramadol AdvReac Hallucinati Verified 07/31/23 08:30 ons Physical Exam Vitals: Vital Signs Temp Pulse Pulse Resp BP BP Pulse Ox 07/31/23 07:00 97.8 F 58 L 16 135/69 98 07/31/23 02:00 53 L 16 120/53 95 07/31/23 00:54 58 L 55 L 16 127/59 98 07/30/23 23:09 97.6 F 58 L 16 137/71 97 Intake and Output 07/30/23 07/31/23 07/31/23 22:59 06:59 14:59 Other: # Voids 1 Weight 61.689 kg Results 07/30/23 23:30 07/30/23 23:30 Cardiac Enzymes 07/30/23 07/30/23 07/31/23 Range/Units 23:30 23:30 03:07 AST 22 (14-36) U/L Troponin I <0.012 <0.012 (0.000-0.034) ng/mL 07/31/23 Range/Units 04:51 AST (14-36) U/L Troponin I <0.012 (0.000-0.034) ng/mL Coagulation 07/30/23 Range/Units 23:30 PT 9.8 L (10.0-12.5) sec APTT 25.0 (22.0-30.0) sec CBC 07/30/23 Range/Units 23:30 WBC 9.8 (3.8-10.6) k/uL RBC 4.27 (3.80-5.40) m/uL Hgb 13.1 (11.4-16.0) gm/dL Hct 42.0 (34.0-46.0) % Plt Count 304 (150-450) k/uL Comprehensive Metabolic Panel 07/30/23 Range/Units 23:30 Sodium 139 (137-145) mmol/L Potassium 4.3 (3.5-5.1) mmol/L Chloride 104 (98-107) mmol/L Carbon Dioxide 25 (22-30) mmol/L BUN 24 H (7-17) mg/dL Creatinine 0.71 (0.52-1.04) mg/dL Glucose 142 H (74-99) mg/dL Calcium 9.7 (8.4-10.2) mg/dL AST 22 (14-36) U/L ALT 18 (4-34) U/L Alkaline Phosphatase 98 (38-126) U/L Total Protein 6.9 (6.3-8.2) g/dL Albumin 4.1 (3.5-5.0) g/dL Current Medications Generic Name Dose Route Start Last Admin Trade Name Freq PRN Reason Stop Dose Admin Aspirin 325 mg 08/01/23 09:00 Aspirin 325 Mg Tab PO DAILY SHANIQUE Nitroglycerin 0.4 mg 07/31/23 03:09 Nitroglycerin Sl Tabs 0.4 Mg Tab SUBLINGUAL Q5M PRN Chest Pain Intake and Output 07/30/23 07/31/23 07/31/23 22:59 06:59 14:59 Other: # Voids 1 Weight 61.689 kg 07/30/23 23:30 07/30/23 23:30
[2023-07-31] MEDS: METOPROLOL SUCCINATE (ER) 50 MG TAB.ER.24H PO SCH (10:24)
[2023-07-31] MEDS: amLODIPine 5 MG TAB PO SCH (10:24)
--- NOTE | 2023-07-31 17:49 | CA ---
Transthoracic Echo Report Name: Mylene Samano Age: 73 Gender: F : 1950 Exam Date: 07/31/2023 11:51 Exam Location: [facility] Ht (in): 64 Wt (lb): 136 Ordering Physician: Eli Olivares Attending/Referring Phys: [id number], [employer] Culturist Kimberli Kirby RDCS Procedure CPT: Indications: LV function Cardiac Hx: Technical Quality: Fair Contrast 1: Total Dose (mL): Contrast 2: Total Dose (mL): MEASUREMENTS (Male / Female) Normal Values 2D ECHO LV Diastolic Diameter PLAX 4.3 cm 4.2 - 5.9 / 3.9 - 5.3 cm LV Systolic Diameter PLAX 2.6 cm IVS Diastolic Thickness 1.0 cm 0.6 - 1.0 / 0.6 - 0.9 cm LVPW Diastolic Thickness 1.0 cm 0.6 - 1.0 / 0.6 - 0.9 cm LV Relative Wall Thickness 0.5 RV Internal Dim ED PLAX 4.0 cm LA Volume 45.5 cm??? 18 - 58 / 22 - 52 cm??? LA Volume Index 27.2 cm???/m??? 16 - 28 cm???/m??? M-MODE Aortic Root Diameter MM 2.7 cm LA Systolic Diameter MM 3.2 cm LA Ao Ratio MM 1.2 AV Cusp Separation MM 2.0 cm DOPPLER AV Peak Velocity 143.9 cm/s AV Peak Gradient 8.3 mmHg AV Mean Velocity 105.3 cm/s AV Mean Gradient 4.9 mmHg AV Velocity Time Integral 32.1 cm AI Peak Velocity 192.6 cm/s AI Peak Gradient 14.8 mmHg AI Pressure Half Time 660.4 ms LVOT Peak Velocity 89.9 cm/s LVOT Peak Gradient 3.2 mmHg LVOT Velocity Time Integral 20.1 cm MV Area PHT 2.8 cm??? Mitral E Point Velocity 59.4 cm/s Mitral A Point Velocity 74.0 cm/s Mitral E to A Ratio 0.8 MV Deceleration Time 275.2 ms MV E' Velocity 4.3 cm/s Mitral E to MV E' Ratio 13.9 TR Peak Velocity 208.6 cm/s TR Peak Gradient 17.4 mmHg Right Ventricular Systolic Press 21.5 mmHg FINDINGS Left Ventricle Mildly increased left ventricular wall thickness. Left ventricular cavity size normal. Normal left ventricular systolic function with no obvious regional wall motion abnormalities. Left ventricular ejection fraction is estimated at 55-60 %. Grade 1 diastolic dysfunction. Right Ventricle Moderate right ventricular dilatation. Right ventricular systolic pressure within normal limits. Right Atrium Normal right atrial size. Left Atrium Normal left atrial size. Mitral Valve Structurally normal mitral valve. Mild mitral annular calcification. Mild mitral regurgitation. Aortic Valve Trileaflet aortic valve. No aortic stenosis. Trace aortic regurgitation. Tricuspid Valve Structurally normal tricuspid valve. Mild tricuspid regurgitation. Pulmonic Valve Structurally normal pulmonic valve. Pericardium No pericardial effusion. Aorta Normal size aortic root and proximal ascending aorta. CONCLUSIONS Preserved systolic function Right ventricular enlargement Previewed by: Dr. Zach Garland MD (Electronically Signed) Final Date: 31 July 2023 17:48
[2023-07-31] MEDS: ATORVASTATIN 80 MG TAB PO SCH (20:57)
[2023-07-31 21:22] VITALS: RESP 16
[2023-07-31] MEDS ORDERED: DEXTROSE 50% SYRINGE 50 ML IVP PRN ×2 (21:23)
--- NOTE | 2023-07-31 21:24 | P.HPIM ---
History of Present Illness H&P Date: 07/31/23 Chief Complaint: Chest pain Patient is a 73-year-old female with a known history of atrial fibrillation on anticoagulation with decrease, diabetes type 2 [id number], hypertension, hyperlipidemia, osteoarthritis, prior history of smoking presents to ER with complaints of chest pain. Patient states that she started having mid retrosternal and epigastric pain and felt like a dull aching started around 7 PM last night. Denies any radiation of the pain. Associate with mild shortness of breath. No nausea or vomiting or diaphoresis. No headache or dizziness or lightheadedness. Denies any palpitations. Patient did take nitro tablets x 2 which seems to relieve her pain after about 30 to 40 minutes. Denies any fever or chills. Denies any cough or sputum production. Patient had abnormal stress test recently and is supposed to get cardiac cath next week. Patient presented to hospital due to above complaints. Patient states that she was admitted to hospital at [place], [place] due to rapid ventricular rate and was recommended to follow-up with her primary wood heel flap rubber. EKG showed sinus bradycardia with heart rate 51 Chest x-ray showed findings concerning for bronchitis which may be an infectious or inflammatory etiologies. No consolidation or pleural effusion. Laboratory data showed WBC 9.8, hemoglobin 13.1 and platelets 304 Sodium 139 potassium 4.3 chloride 104 bicarb is 25 BUN 24 and creatinine 0.71 and blood sugar 142. Liver enzymes are not elevated troponin x 3 negative. Review of Systems Constitutional: Patient denies any fever or chills . No generalized weakness or weight loss. Abdomen: Patient denied nausea vomiting and diarrhea and abdominal pain. Cardiovascular: Patient denies any chest pain or short of breath no palpitations. Respiratory: patient denied any cough is from production. No shortness of breath Neurologic: Patient denied any numbness or tingling headache. Musculoskeletal: Patient denies any complaints of joint swelling or deformity. Skin: Negative Psychiatric: Negative Endocrine: No heat or cold intolerance. No recent weight gain. Genitourinary: No dysuria or hematuria. All other 14 point ROS negative except the above Past Medical History Past Medical History: Coronary Artery Disease (CAD), Chest Pain / Angina, Diabetes Mellitus, Eye Disorder, Hyperlipidemia, Hypertension, Myocardial Infarction (OR), Osteoarthritis (OA), Pneumonia Additional Past Medical History / Comment(s): Currently wearing heart monitor for 30 days. "Had trouble with her heart and low magnesium levels in May 2018." Bilateral cataracts starting Last Myocardial Infarction Date:: 2018 History of Any Multi-Drug Resistant Organisms: None Reported Past Surgical History: Appendectomy, Bladder Surgery, Cholecystectomy, Heart Catheterization, Hysterectomy, Joint Replacement, Orthopedic Surgery Additional Past Surgical History / Comment(s): Cardiac caths, arthroscopy left knee x3, total left knee arthroplasty, right hand ring finger and thumb joint replacements, D&C, multiple ganglion cystectomies, diagnostic laparoscopy with lysis of adhesions, colonoscopies and last one had benign polypecotmy, bladder suspension.hand Past Anesthesia/Blood Transfusion Reactions: Motion Sickness, Postoperative Nausea & Vomiting (PONV) Past Psychological History: No Psychological Hx Reported Additional Psychological History / Comment(s): Pt resides with her spouse. She is independent. She is retired from banking. Smoking Status: Former smoker Past Alcohol Use History: Rare Additional Past Alcohol Use History / Comment(s): Started smoking occcasionally in 1966, was an on and off smoker sometimes quitting for years and then finally quit for good in 1994. Past Drug Use History: None Reported - Past Family History Mother Family Medical History: Dementia Additional Family Medical History / Comment(s): Mother of dementia at the age of 92 yrs. There were several family members on her side with dementia. Sister(s) Family Medical History: Cancer, Deep Vein Thrombosis (DVT) Additional Family Medical History / Comment(s): Pt had 2 sisters with DVTs and one of the sisters has history of Prinzmetal angina. Colon Cancer X 1 sister. Father Family Medical History: Myocardial Infarction (OR) Additional Family Medical History / Comment(s): Father of a OR at the age of 63 yrs. Father's 7 siblings all had heart disease/MIs Son(s) Family Medical History: No Reported History Medications and Allergies Home Medications Medication Instructions Recorded Confirmed Type metFORMIN HCL [Glucophage] 1,000 mg PO BID 10/31/15 07/31/23 History Famotidine [Pepcid] 20 mg PO DAILY #30 tab 02/24/18 07/31/23 Rx amLODIPine [Norvasc] 5 mg PO BID 05/26/18 07/31/23 History Metoprolol Succinate [Toprol Xl] 50 mg PO BID 06/12/18 07/31/23 History Apixaban [Eliquis] 5 mg PO BID 07/24/21 07/31/23 History Atorvastatin [Lipitor] 40 mg PO HS 07/24/21 07/31/23 History Nitroglycerin Sl Tabs [Nitrostat] 0.4 mg SL Q5M PRN 12/15/22 07/31/23 History Pioglitazone [Actos] 15 mg PO DAILY 12/15/22 07/31/23 History Acetaminophen/Diphenhydramine 0.5 tab PO HS 07/31/23 07/31/23 History [Tylenol PM 500-25mg] Cholecalciferol [Vitamin D3 (25 25 mcg PO DAILY 07/31/23 07/31/23 History Mcg = 1000 Iu)] Empagliflozin [Jardiance] 25 mg PO DAILY 07/31/23 07/31/23 History Allergies Allergy/AdvReac Type Severity Reaction Status Date / Time Sulfa (Sulfonamide Allergy Itching,fev Verified 07/31/23 08:30 Antibiotics) er amiodarone AdvReac Nausea & Verified 07/31/23 08:30 Vomiting hydrocodone [From [place]] AdvReac Nausea & Verified 07/31/23 08:30 Vomiting tramadol AdvReac Hallucinati Verified 07/31/23 08:30 ons Physical Exam Vitals: Vital Signs Temp Pulse Pulse Resp BP BP Pulse Ox 07/31/23 07:00 97.8 F 58 L 16 135/69 98 07/31/23 02:00 53 L 16 120/53 95 07/31/23 00:54 58 L 55 L 16 127/59 98 07/30/23 23:09 97.6 F 58 L 16 137/71 97 Intake and Output 07/30/23 07/31/23 07/31/23 22:59 06:59 14:59 Intake Total 118 Balance 118 Intake: Oral 118 Other: # Voids 1 Weight 61.689 kg PHYSICAL EXAMINATION: Patient is lying in the bed comfortably, no acute distress, awake alert and oriented.. HEENT: Normocephalic. Neck is supple. Pupils reactive. Nostrils clear. Oral cavity is moist. Neck reveals no JVD, carotid bruits, or thyromegaly. CHEST EXAMINATION: Trachea is central. Symmetrical expansion. Lung scherer clear to auscultation and percussion. CARDIAC: Normal S1, S2 with no gallops. Positive systolic murmur ABDOMEN: Soft. Bowel sounds normal. No organomegaly. No abdominal bruits. Extremities: reveal no edema. No clubbing or cyanosis Neurologically awake, alert, oriented x3 with well-coordinated movements. No focal deficits noted Skin: No rash or skin lesions. Psychiatric: Coperative. Nonsuicidal Musculoskeletal: No joint swelling or deformity. Normal range of motion. Results CBC & Chem 7: 07/30/23 23:30 07/30/23 23:30 Labs: Abnormal Lab Results - Last 24 Hours (Table) 07/30/23 07/30/23 Range/Units 23:30 23:30 PT 9.8 L (10.0-12.5) sec BUN 24 H (7-17) mg/dL Glucose 142 H (74-99) mg/dL Thrombosis Risk Factor Assmnt - DVT/VTE Prophylaxis DVT/VTE Prophylaxis: Pharmacologic Prophylaxis ordered Assessment and Plan Assessment: Chest pain with recent abnormal stress test. Ruled out ACS. Paroxysmal atrial fibrillation on anticoagulation with Eliquis Hypertension Hyperlipidemia Diabetes type 2 [id number] History of prior cardiac catheterization in 2018 Osteoarthritis Prior history of smoking quit several years ago Plan: Patient will be continued on telemonitoring. Serial EKG and troponin x 3 negative. Patient be continued on aspirin and statins and metoprolol. Eliquis is on hold currently for cardiac catheterization tomorrow. Cardiology is on board. Continue with insulin sliding scale for blood sugar control. Continue to follow closely. Time with Patient: Greater than 30
[2023-08-01] MEDS: ATORVASTATIN 80 MG TAB PO ONE (04:11)
[2023-08-01] MEDS: SODIUM CHLORIDE 0.9% 1,000 ML in EMPTY BAG 1 BAG IV SCH (04:11)
[2023-08-01] MEDS: ASPIRIN 325 MG TAB PO ONE (04:11)
[2023-08-01] MEDS: ASPIRIN 81 MG PO SCH (04:20)
[2023-08-01 05:39] LABS: Glucose,Whole Blood 137 mg/dL (70-110)
[2023-08-01] MEDS: INSULIN ASPART (NovoLOG) 100 UNIT/ML VIAL SQ SCH (05:57)
[2023-08-01] MEDS ORDERED: HEPARIN SODIUM,PORCINE 10,000 UNIT in SODIUM CHLORIDE 0.9% 1,000 ML IRRIGATION PRN (07:00)
[2023-08-01] MEDS ORDERED: HEPARIN SODIUM,PORCINE (1 ML) 2,500 UNIT in SODIUM CHLORIDE 0.9% 250 ML IRRIGATION PRN (07:00)
[2023-08-01] MEDS ORDERED: ASPIRIN 325 MG TAB PO SCH (09:00)
[2023-08-01 10:58] LABS: Blood Urea Nitrogen 20.3 mg/dL (9.0-27.0); Carbon Dioxide 23.5 mmol/L (21.6-31.8); Chloride 103 mmol/L (96-109); Chol/HDL Ratio 2.75 Ratio; Glucose 144 mg/dL (70-110); LDL Cholesterol,Calculated 72.5 mg/dL (0.0-131.0); Sodium 141 mmol/L (135-145)
[2023-08-01 10:59] LABS: Calcium 9.6 mg/dL (8.7-10.3)
[2023-08-01] MEDS: LIDOCAINE 1% INJ 10MG/ML (20 ML MDV) SQ ONE (12:48)
[2023-08-01] MEDS: MIDAZOLAM 2 MG/2 ML VIAL IVP ONE (12:50)
[2023-08-01] MEDS: VERAPAMIL SYRINGE (5 MG/10 ML) INTRAARTER ONE (12:50)
[2023-08-01] MEDS: HEPARIN SODIUM 1,000 UN/ML (10ML VL) IVP ONE (12:50)
[2023-08-01] MEDS: IV FLUID CONTINUATION 1,000 ML IV ONE (12:52)
[2023-08-01] MEDS: NITROGLYCERIN SL TABS 0.4 MG TAB SUBLINGUAL ONE (12:55)
[2023-08-01] MEDS: fentaNYL (PF) 50 MCG/1 ML VIAL IVP ONE (12:59)
[2023-08-01] MEDS: IOPAMIDOL-370 100ML BTL INJ ONE (13:04)
[2023-08-01] MEDS ORDERED: RX INFO: IV CONTRAST WAS GIVEN 1 EACH MISC MISCELLANE PRN (13:12)
--- NOTE | 2023-08-01 13:14 | P.PCN ---
Date of Procedure: 08/01/23 Operative Findings: CARDIAC CATHETERIZATION PERFORMING PHYSICIAN: Wesley Wells MD, RPVI PROCEDURE PERFORMED: 1. Selective right and left coronary angiogram 2. Left heart catheterization 3. Ultrasound-guided access of the right radial artery INDICATION: Unstable angina COMPLICATION: None APPROACH: Right radial artery LEVEL OF SEDATION: Moderate with a sedation length of 15 minutes PROCEDURE DESCRIPTION: After obtaining an informed consent, the patient was brought to cardiac laborer petroleum refinery. Local anesthesia was performed using lidocaine subcutaneously. The right radial artery was cannulated using Seldinger technique, the guidewire passed easily, following that we advanced a 5-Barbadian sheath dilator assembly, the wire and dilator were removed and sheath was flushed. Following that, 2 mg of verapamil along with 5000 unit heparin were given. Selective right and left coronary angiogram using a 6-Barbadian JR4 and JL 3.5 catheters. Following that we did left heart catheterization using 6-Barbadian pigtail catheter. The procedure was completed there was no complication. SELECTIVE CORONARY ANGIOGRAM: The right coronary artery: Large caliber vessel and a dominant vessel. The RCA is angiographically normal Left main: Is angiographically normal. Bifurcates into an LCx and LAD The left circumflex: Large-caliber vessel nondominant vessel and appears to be angiographically normal and gives rise into an OM branch which appears to be normal and second OM branch which also appears to be angiographically normal The left anterior descending artery: The mid LAD has mild to moderate tubular lesion appears to be in the range of 30 to 40% only. HEMODYNAMICS: The LVEDP was about 12 mmHg with no significant gradient across aortic valve CONCLUSION: 1. Mild to moderate disease involving the mid LAD 2. Normal left-sided filling pressure POSTPROCEDURE MANAGEMENT: Medical treatment
[2023-08-01] MEDS: SODIUM CHLORIDE 0.9% 1,000 ML IV SCH (13:15)
[2023-08-01 13:28] LABS: Glucose,Whole Blood 121 mg/dL (70-110)
[2023-08-01] MEDS: ACETAMINOPHEN TAB 325 MG TAB PO PRN (14:22)
[2023-08-01 14:58] VITALS: TEMP 97.8
[2023-08-01 17:41] LABS: Glucose,Whole Blood 196 mg/dL (70-110)
[2023-08-01 17:43] VITALS: BP 114/71; PULSE 58
--- NOTE | 2023-08-01 17:46 | P.DS ---
Providers Date of admission: 07/31/23 03:50 Expected date of discharge: 08/01/23 Attending physician: Abhay Hayes Consults: 07/31/23 03:09 Consult Physician Urgent Consulting Provider: [facility] Consult Reason/Comments: Chest pain Do you want consulting provider notified?: Yes Primary care physician: [facility] Course: 73-year-old female with a past medical history significant for minimal CAD, paroxysmal atrial fibrillation, hypertension, hyperlipidemia, valvular heart disease, and diabetes. Patient follows in the office with Dr. Wells. We have been asked to see the patient in consultation for chest pain. Patient examined at the bedside. The patient recently underwent myocardial perfusion imaging stress test which came in to be abnormal showing reversible ischemia. The patient was scheduled to undergo outpatient cardiac catheterization on 08/06/2023. She presented to the hospital yesterday with a chief complaint of chest pain. She states that she had pain in the middle of her chest. She denied any radiation of the pain. She states that she took 2 nitro at home which did not really help her. She denies chest pain or pressure at the time of examination. She denies any shortness of breath. The patient does report over the past 2 months she has been having palpitations with her heart rates going up into the 170s. She denies any palpitations at the time of examination. Denies any dizziness or lightheadedness. Vital signs are stable. - EKG reveals sinus mechanism with Q waves inferiorly. - Chest xray findings concerning for bronchitis, which may be infectious or inflammatory etiology. No consolidation or pleural effusion.. - Laboratory data: WBC 9.8. Hemoglobin 13.1. Platelet count 304. Sodium 139. Potassium 4.3. BUN 24. Creatinine 0.71. Troponin negative x 3 - Current home cardiac medications include Eliquis 5 mg twice a day, amlodipine 40 mg at night, Norvasc 5 mg twice a day, metoprolol succinate 50 mg twice a day. - Most recent echocardiogram obtained in June 2023 revealed normal EF, mild MR, mild AR - Cardiac catheterization history: February 2018 revealing minimal CAD -Patient underwent Lexiscan stress test in the office on July 07, 2023 revealing abnormal myocardial perfusion imaging with evidence of reversible defect of small size and mild intensity anteriorly Patient was evaluated by cardiology and underwent cardiac catheterization which revealed mild to moderate disease involving mid LAD with normal left-sided filling pressure Patient was recommended medical management and was discharged home in a stable condition Patient Condition at Discharge: Good Plan - Discharge Summary New Discharge Prescriptions: New Aspirin 81 mg PO DAILY tab Atorvastatin [Lipitor] 80 mg PO HS 30 Days #30 tab Continue metFORMIN HCL [Glucophage] 1,000 mg PO BID Famotidine [Pepcid] 20 mg PO DAILY #30 tab amLODIPine [Norvasc] 5 mg PO BID Metoprolol Succinate [Toprol Xl] 50 mg PO BID Empagliflozin [Jardiance] 25 mg PO DAILY Apixaban [Eliquis] 5 mg PO BID Pioglitazone [Actos] 15 mg PO DAILY Nitroglycerin Sl Tabs [Nitrostat] 0.4 mg SL Q5M PRN PRN Reason: Chest Pain Cholecalciferol [Vitamin D3 (25 Mcg = 1000 Iu)] 25 mcg PO DAILY Acetaminophen/Diphenhydramine [Tylenol PM 500-25mg] 0.5 tab PO HS Discontinued Atorvastatin [Lipitor] 40 mg PO HS Discharge Medication List metFORMIN HCL [Glucophage] 1,000 mg PO BID 10/31/15 [History] Famotidine [Pepcid] 20 mg PO DAILY #30 tab 02/24/18 [Rx] amLODIPine [Norvasc] 5 mg PO BID 05/26/18 [History] Metoprolol Succinate [Toprol Xl] 50 mg PO BID 06/12/18 [History] Apixaban [Eliquis] 5 mg PO BID 07/24/21 [History] Nitroglycerin Sl Tabs [Nitrostat] 0.4 mg SL Q5M PRN 12/15/22 [History] Pioglitazone [Actos] 15 mg PO DAILY 12/15/22 [History] Acetaminophen/Diphenhydramine [Tylenol PM 500-25mg] 0.5 tab PO HS 07/31/23 [History] Cholecalciferol [Vitamin D3 (25 Mcg = 1000 Iu)] 25 mcg PO DAILY 07/31/23 [History] Empagliflozin [Jardiance] 25 mg PO DAILY 07/31/23 [History] Aspirin 81 mg PO DAILY tab 08/01/23 [Rx] Atorvastatin [Lipitor] 80 mg PO HS 30 Days #30 tab 08/01/23 [Rx] Follow up Appointment(s)/Referral(s): Wesley Wells MD [STAFF PHYSICIAN] - 1 Week (please call to set up post cardiac cath appointment/ wrist check. ) Breezy Garcia MD [STAFF PHYSICIAN] - 1-2 days Patient Instructions/Handouts: After Radial Heart Catheterization (GEN), Procedural Sedation (ED) Activity/Diet/Wound Care/Special Instructions: resume eliquist tomorrow morning 08/02/23. Discharge Disposition: HOME SELF-CARE
[2023-08-02] MEDS ORDERED: APIXABAN 5 MG TAB PO SCH (09:00)
== END 2023-08-01 17:55 | disposition home or self-care (01) ==
LOC: EC 22:53 → 6NMEDSUR 07-31 03:50
PROVIDERS: ADMIT Hospitalist; ATTEND Hospitalist
DX: I25.10 Atherosclerotic heart disease of native coronary artery without angina pectoris (principal); I48.0 Paroxysmal atrial fibrillation; E11.9 Type 2 diabetes mellitus without complications; E78.5 Hyperlipidemia, unspecified; I10 Essential (primary) hypertension; I25.2 Old myocardial infarction; I08.0 Rheumatic disorders of both mitral and aortic valves; M19.90 Unspecified osteoarthritis, unspecified site; Z87.891 Personal history of nicotine dependence; Z79.01 Long term (current) use of anticoagulants; Z79.84 Long term (current) use of oral hypoglycemic drugs; Z79.899 Other long term (current) drug therapy; Z88.2 Allergy status to sulfonamides; Z88.5 Allergy status to narcotic agent
CPT/HCPCS: 99285; 36415; 93005; 93306; 93458; 76937; 80061; 80053; 80048; 84484; 85025; 85610; 85730; 83036; 71046; G0378 ×2; C1769; C1894; J2250; J2001; J1644; Q9967; J3010

== ENCOUNTER → 2023-08-25 | Outpatient (CLI) | payer MEDICARE ==
--- NOTE | 2023-08-29 08:34 | MM ---
Reason for Exam: Screening (asymptomatic). Last screening mammogram was performed 12 month(s) ago. Patient History: Menarche at age 11. First Full-Term at age 19. Left ovary removed at age 39. Right ovary removed at age 39. Hysterectomy at age 39. Postmenopausal. Estrogen for 15 years until age 54. Patient used Hormonal Contraceptives for 6 years. Excisional Biopsy on the Left side. 08/13/2021, Benign Core Biopsy on the right side. 08/13/2021, Benign Core Biopsy on the right side. Risk Values: Colette 5 year model risk: 2.4%. NCI Lifetime model risk: 5.5%. Prior Study Comparison: 07/18/2021 Bilateral Diagnostic Mammogram, [facility]. 02/21/2022 Right MG 3D diag mammo w/cad RT, [facility]. 08/23/2022 Bilateral MG 3D diag mammo w/cad LIANET, [facility]. Tissue Density: There are scattered areas of fibroglandular density. Findings: Analyzed By CAD. Right breast: There is no suspicious group of microcalcifications or new suspicious mass. Benign-appearing calcifications right breast. Left breast: There is no suspicious group of microcalcifications or new suspicious mass. Benign-appearing calcifications left breast. Overall Assessment: Benign, BI-RAD 2 Management: Screening Mammogram of both breasts in [address] [facility] will attempt to contact patient to return for supplemental views and ultrasound if indicated. Patient should continue monthly self-breast exams. A clinical breast exam by your physician is recommended on an annual basis. This exam should not preclude additional follow-up of suspicious palpable abnormalities. Note on Colette scores and lifetime risk: 1. A Colette score greater than 3% is considered moderate risk. If this is the case, consider specialist referral to assess eligibility for a risk reducing agent. 2. If overall lifetime risk for the development of breast cancer is 20% or higher, the patient may qualify for future screening with alternating mammogram and breast MRI. Electronically signed and approved by: Yovani Moya DO
== END | disposition home or self-care (01) ==
LOC: RADMAMWWP 11:01
PROVIDERS: ATTEND Family Medicine
DX: Z12.31 Encounter for screening mammogram for malignant neoplasm of breast (principal); Z78.0 Asymptomatic menopausal state
CPT/HCPCS: 77063; 77067

== ENCOUNTER → 2024-01-27 | Outpatient (CLI) | payer MEDICARE ==
[2024-01-27 15:54] LABS: HCT 41.7 % (37.2-46.3); HGB 13.2 g/dL (12.0-15.0); MCH 31.2 pg (27.0-32.0); MCHC 31.7 g/dL (32.0-37.0); MCV 98.6 FL (80.0-97.0); Mean Platelet Volume 10.7 FL (9.5-12.2); NRBC Per 100 WBC 0 X 10*3/uL (0.00-0.01); Platelet Count 370 X 10*3/uL (140-440); RBC 4.23 X 10*6/uL (4.10-5.20); RDW 13.2 % (11.5-14.5); WBC 8.47 X 10*3/uL (4.50-10.00)
[2024-01-27 17:29] LABS: Blood Urea Nitrogen 21.7 mg/dL (9.0-27.0); Chloride 103 mmol/L (96-109); Sodium 142 mmol/L (135-145)
== END | disposition home or self-care (01) ==
LOC: LABPAT 10:15
PROVIDERS: ATTEND Internal Medicine Clinical Cardiac Electrophysiology
DX: I48.0 Paroxysmal atrial fibrillation (principal)
CPT/HCPCS: 36415; 80051; 82565; 84520; 85027

== ENCOUNTER 2024-02-03 09:27 | Day surgery (SDC) | payer MEDICARE ==
[2024-01-30 15:05] VITALS: BMI 24.0
[2024-02-03 10:14] LABS: Glucose,Whole Blood 123 mg/dL (70-110)
[2024-02-03] MEDS: SODIUM CHLORIDE 0.9% 1,000 ML IV SCH (10:17)
[2024-02-03] MEDS: IV FLUID CONTINUATION 1,000 ML IV ONE (10:17)
[2024-02-03 10:40] LABS: ALT 21 U/L (4-34); AST 25 U/L (14-36); African American GFR (CKD) >90 (>60 ml/min/1.73 sqM); Albumin 4.2 g/dL (3.5-5.0); Alkaline Phosphatase 84 U/L (38-126); Anion Gap 6 mmol/L; Blood Urea Nitrogen 17 mg/dL (7-17); Calcium 9.2 mg/dL (8.4-10.2); Carbon Dioxide 31 mmol/L (22-30); Chloride 103 mmol/L (98-107); Glucose 130 mg/dL (74-99); Non-African American GFR(CKD) 89 (>60 ml/min/1.73 sqM); Potassium 4.2 mmol/L (3.5-5.1); Sodium 140 mmol/L (137-145); Total Bilirubin 1.1 mg/dL (0.2-1.3)
[2024-02-03] MEDS ORDERED: SUCCINYLCHOLINE CHLORIDE 200 MG/10 ML VIAL IV ONE (11:55)
[2024-02-03] MEDS ORDERED: ROCURONIUM 10 MG/ML (5 ML VIAL) IV ONE (11:55)
[2024-02-03] MEDS ORDERED: PROPOFOL 10 MG/ML 20 ML VIAL IV ONE (11:55)
[2024-02-03] MEDS ORDERED: ONDANSETRON 4 MG/2 ML VIAL ONE (11:55)
[2024-02-03] MEDS ORDERED: PHENYLEPHRINE-0.9% NACL SYG 1,000 MCG/10 ML SYRINGE ONE (11:55)
[2024-02-03] MEDS ORDERED: PHENYLEPHRINE 10 MG/ML VIAL ONE (11:55)
[2024-02-03] MEDS ORDERED: fentaNYL (PF) 50 MCG/ML 2 ML AMP ONE (11:55)
[2024-02-03] MEDS ORDERED: ISOPROTERENOL 250 MCG/1.25 ML SYR IV ONE (11:55)
[2024-02-03] MEDS ORDERED: LIDOCAINE 1% INJ 10MG/ML (20 ML MDV) ONE (11:55)
[2024-02-03] MEDS ORDERED: ceFAZolin 1 GM/50 ML BAG (PMX) ONE (11:55)
[2024-02-03] MEDS: HEPARIN SOD,PORK IN 0.45% NACL 25,000 UNIT in 0.45% NACL 1 250ML.BAG IV ONE (12:19)
[2024-02-03] MEDS: LIDOCAINE 1% INJ 10MG/ML (20 ML MDV) SQ ONE ×2 (12:32→15:00)
[2024-02-03] MEDS: HEPARIN SODIUM (1,000 UNIT/ML) 1,000 UNIT in SODIUM CHLORIDE 0.9% 1,000 ML IRRIGATION ONE (14:36)
--- NOTE | 2024-02-03 14:58 | P.HPCAR ---
History of Present Illness This is Dr. Garland dictating an H/P on this patient The patient was interviewed and examined IMPRESSION / ASSESSMENT: Recurrent SVT with RVR, symptomatic and breaking through on metoprolol succinate 50 mg twice daily Atrial fibrillation, paroxysmal, symptomatic Type 2 diabetes Hypertension With the patient arrived in the [facility] area she was in tachycardia with RVR. Spontaneous abrupt termination to sinus rhythm PLAN: Diagnostic EP study Induction of arrhythmia and then depending upon whether she has SVT or atrial f ibrillation, ablation will be performed accordingly Nidhi Pineda [facility] Patient presented to the hospital in SVT with RVR at 150 beats a minute. She had sustained SVT but then abruptly converted, spontaneously No syncope but she complains of shortness of breath being dizzy and with palpitations She is already on metoprolol succinate 50 mg twice daily No loss of consciousness ROS: No fever chills or rigors, no cough, phlegm or expectoration, no nausea, vomiting or diarrhea, no hematuria, dysuria, no musculoskeletal complaints, no strokes or seizures, no skin lesions. EXAMINATION: Afebrile, pulse rate at 150 beats a minute during SVT In sinus rhythm heart rates are in the 70s and 80s Blood pressure 152/75 mmHg pulse ox 99% on room air No murmurs no gallop no rub in sinus rhythm Clear lungs No JVD No lower extremity edema Soft abdomen nontender REVIEW OF LABS, ECG & MEDICAL DATA Sodium 140, potassium 4.2, BUN 17 and creatinine 0.63 AST and ALT normal TSH 1.3 Physical Exam Vitals: Vital Signs Temp Pulse Resp BP Pulse Ox 02/03/24 10:13 97.9 F 83 18 152/75 99 Intake and Output 02/02/24 02/03/24 02/03/24 22:59 06:59 14:59 Intake Total 240 Balance 240 Intake: IV 240 Other: Weight 66.1 kg Past Medical History Past Medical History: Atrial Fibrillation, Coronary Artery Disease (CAD), Chest Pain / Angina, Diabetes Mellitus, Eye Disorder, Hyperlipidemia, Hypertension, Myocardial Infarction (VT), Osteoarthritis (OA) Additional Past Medical History / Comment(s): Bilateral cataracts starting Last Myocardial Infarction Date:: 2018 History of Any Multi-Drug Resistant Organisms: None Reported Past Surgical History: Appendectomy, Bladder Surgery, Cholecystectomy, Heart Catheterization, Hysterectomy, Joint Replacement, Orthopedic Surgery Additional Past Surgical History / Comment(s): Cardiac caths, arthroscopy left knee x3, total left knee arthroplasty, right hand ring finger and thumb joint replacements, D&C, multiple ganglion cystectomies, diagnostic laparoscopy with lysis of adhesions, colonoscopies and last one had benign polypecotmy, bladder suspension. LT hand SX (BURNED NERVES AROUND JOINT) Past Anesthesia/Blood Transfusion Reactions: Motion Sickness, Postoperative Nausea & Vomiting (PONV) Smoking Status: Former smoker - Past Family History Mother Family Medical History: Dementia Additional Family Medical History / Comment(s): Mother of dementia at the age of 92 yrs. There were several family members on her side with dementia. Sister(s) Family Medical History: Cancer, Deep Vein Thrombosis (DVT) Additional Family Medical History / Comment(s): Pt had 2 sisters with DVTs and one of the sisters has history of Prinzmetal angina. Colon Cancer X 1 sister. Father Family Medical History: Myocardial Infarction (VT) Additional Family Medical History / Comment(s): Father of a VT at the age of 63 yrs. Father's 7 siblings all had heart disease/MIs Son(s) Family Medical History: No Reported History Physical Examination Vital Signs Temp Pulse Resp BP Pulse Ox 02/03/24 10:13 97.9 F 83 18 152/75 99 Intake and Output 02/02/24 02/03/24 02/03/24 22:59 06:59 14:59 Intake Total 240 Balance 240 Intake: IV 240 Other: Weight 66.1 kg Results 02/03/24 10:05 Cardiac Enzymes 02/03/24 Range/Units 10:05 AST 25 (14-36) U/L Comprehensive Metabolic Panel 02/03/24 Range/Units 10:05 Sodium 140 (137-145) mmol/L Potassium 4.2 (3.5-5.1) mmol/L Chloride 103 (98-107) mmol/L Carbon Dioxide 31 H (22-30) mmol/L BUN 17 (7-17) mg/dL Creatinine 0.63 (0.52-1.04) mg/dL Glucose 130 H (74-99) mg/dL Calcium 9.2 (8.4-10.2) mg/dL AST 25 (14-36) U/L ALT 21 (4-34) U/L Alkaline Phosphatase 84 (38-126) U/L Total Protein 7.0 (6.3-8.2) g/dL Albumin 4.2 (3.5-5.0) g/dL Current Medications Generic Name Dose Route Start Last Admin Trade Name Freq PRN Reason Stop Dose Admin Acetaminophen 650 mg 02/03/24 14:51 Acetaminophen Tab 325 Mg Tab PO 03/04/24 14:50 Q6HR PRN Mild Pain (Scale 1 to 3) Amlodipine Besylate 5 mg 02/03/24 21:00 Amlodipine 5 Mg Tab PO 03/04/24 20:59 BID [facility] Apixaban 5 mg 02/03/24 21:00 Apixaban 5 Mg Tab PO 03/04/24 20:59 BID [facility] Protocol Aspirin 81 mg 02/04/24 09:00 Aspirin 81 Mg PO 03/05/24 08:59 DAILY [facility] Atorvastatin Calcium 80 mg 02/03/24 21:00 Atorvastatin 80 Mg Tab PO 03/04/24 20:59 HS [facility] Famotidine 20 mg 02/04/24 09:00 Famotidine 20 Mg Tab PO 03/05/24 08:59 DAILY [facility] Acetaminophen 1,000 mg/ IV 100 mls @ 400 mls/hr 02/03/24 14:51 Solution IVPB 02/03/24 15:05 ONCE ONE Non-Formulary Medication 10 units 02/04/24 09:00 Insulin Glargine,Hum.Rec.Anlog [Lantus Solostar Pen] SQ 03/05/24 08:59 DAILY [facility] Non-Formulary Medication 1,000 mg 02/03/24 21:00 Metformin Hcl [Glucophage] PO 03/04/24 20:59 BID [facility] Pioglitazone HCl 15 mg 02/04/24 09:00 Pioglitazone 15 Mg Tab PO 03/05/24 08:59 DAILY [facility] Sodium Chloride 12 ml 02/03/24 14:51 Sodium Chloride 0.9% Flush 10 Ml Syringe IV 03/04/24 14:50 Q12HR PRN Line Flush Intake and Output 02/02/24 02/03/24 02/03/24 22:59 06:59 14:59 Intake Total 240 Balance 240 Intake: IV 240 Other: Weight 66.1 kg Patient Weight 02/04/24 06:59 Weight 66.1 kg 02/03/24 10:05
--- NOTE | 2024-02-03 15:01 | P.PRLE ---
RE: Mylene Samano Dear Manfred Chakraborty kin was brought in for A-fib ablation. However when she arrived in the [employer] area she was in SVT with RVR up to 150 beats a minute She then converted spontaneously to sinus rhythm Her diagnostic EP study showed AV macho reentrant tachycardia that would sometimes degenerate into atrial fibrillation Therefore atrial fibrillation ablation was deferred Successful slow pathway ablation for SVT/AV macho reentry was performed We could not restart atrial fibrillation both on and off Isopril I implanted a loop monitor to look for any episodes of atrial fibrillation following successful SVT ablation I have stopped metoprolol completely for now but she will continue all other medications unchanged and will follow-up with you and Dr. Wells as before If she has recurrent paroxysms of atrial fibrillation with RVR despite successful ablation for AV macho reentry we will proceed with an A-fib ablation. In the interim she will continue Edwin Thank you for entrusting me with the care of the patient Warm regards Sincerely Zach Garland
--- NOTE | 2024-02-03 15:17 | P.EPPROC ---
- EP Procedure Note Electrophysiology Procedure Note: Provisional diagnosis: Recurrent palpitations secondary to atrial fibrillation Final diagnosis: AV macho reentrant tachycardia, recurrent, drug refractory failing therapy and then degenerating into atrial fibrillation AV macho reentry was the trigger for atrial fibrillation Status post successful ablation of AV macho reentry, tachycardia rendered noninducible No inducible atrial fibrillation on or off Isopril thereafter Implantation of a loop monitor to watch for episodes of atrial fibrillation in the absence of the AVNRT trigger Details Patient is brought to the EP lab in a fasting state. Written informed consent was obtained prior to the procedure. The procedure was performed under general anesthesia. Venous sheaths were placed in the right left femoral veins. Diagnostic catheters were positioned in the coronary sinus Intracardiac echo catheter was placed and there was no evidence for left atrial appendage thrombus. Dilated left atrium noted. Posteriorly oriented right inferior pulmonary vein. Large left-sided veins Thickened pericardium State pacing from the HRA and from the coronary sinus induced SVT with ease. Catheters placed in the high right atrium His bundle area right ventricle and the coronary sinus then revealed AV macho reentry with a short septal time of 41 ms RV pacing during SVT resulted in a VAV response with long post pacing interval AV macho reentry was diagnosed and mapping and irrigation catheter was placed along with a long sheath Mapping of the hiss cloud, coronary sinus os both the floor and the roof as well as the coronary sinus and the tricuspid annulus was performed Slow pathway mapping was performed Successful slow pathway ablation was performed The slow pathway was eliminated just above the roof of the coronary sinus. The His bundle area was about 1.3 cm away and therefore ablation at this site was performed during atrial pacing Thereafter high-dose Isopril was used. Atrial pacing and ventricular pacing was performed There was no inducible AV macho reentry, no inducible atrial fibrillation and absence of any antegrade accessory pathway conduction All catheters were removed. Accesses were closed with Vascade device and Perclose Preparations made for implantation of a loop monitor to look for any future epis odes of atrial fibrillation, in the absence of the AVNRT trigger
--- NOTE | 2024-02-03 15:20 | P.EPPROC ---
- EP Procedure Note Electrophysiology Procedure Note: Loop monitor implant Primary physicians: Dr. Maurice Rojas Mandrel Maker: Dr. Wells Indication: Paroxysmal atrial fibrillation. Successful ablation of AV macho reentry which served as a trigger for atrial fibrillation Patient was brought to the EP lab in a fasting state. Written informed consent was obtained prior to the procedure. The left pectoral area was prepped and draped per protocol. Intravenous antibiotic was administered preoperatively. A subcutaneous Loop monitor was implanted successfully and the wound was closed per protocol. The device was programmed to detect significant danni- arrhythmic and tachy-arrhythmic events, per protocol. Device and programming details: A-fib detection and management
[2024-02-03] MEDS: LACTATED RINGERS 1,000 ML IV SCH (16:44)
[2024-02-03 17:01] LABS: Glucose,Whole Blood 110 mg/dL (70-110)
[2024-02-03] MEDS: metFORMIN 500 MG TAB PO SCH (18:25)
[2024-02-03 19:39] VITALS: RESP 16
[2024-02-03] MEDS: ACETAMINOPHEN IV (For NPO) 1,000 MG in EMPTY BAG 1 BAG IVPB ONE (19:48)
[2024-02-03 19:49] LABS: Glucose,Whole Blood 130 mg/dL (70-110)
[2024-02-03] MEDS: ATORVASTATIN 80 MG TAB PO SCH (19:54)
[2024-02-03] MEDS: APIXABAN 5 MG TAB PO SCH (19:54)
[2024-02-03] MEDS: amLODIPine 5 MG TAB PO SCH (19:54)
[2024-02-03 20:17] LABS: Basophils % (A) 0 %; Eosinophils # (A) 0.1 k/uL (0-0.7); Eosinophils % (A) 1 %; HCT 36.8 % (34.0-46.0); HGB 11.8 gm/dL (11.4-16.0); Lymphocytes # (A) 2.1 k/uL (1.0-4.8); Lymphocytes % (A) 19 %; MCH 31.5 pg (25.0-35.0); MCHC 32.2 g/dL (31.0-37.0); MCV 97.7 fL (80.0-100.0); Mean Platelet Volume 8.3; Monocytes # (A) 0.7 k/uL (0-1.0); Monocytes % (A) 6 %; Neutrophils # (A) 8.3 k/uL (1.3-7.7); Neutrophils % (A) 73 %; Platelet Count 277 k/uL (150-450); RBC 3.76 m/uL (3.80-5.40); RDW 12.9 % (11.5-15.5); WBC 11.3 k/uL (3.8-10.6)
[2024-02-04 01:50] VITALS: TEMP 98.4
[2024-02-04] MEDS: ACETAMINOPHEN TAB 325 MG TAB PO PRN (03:36)
[2024-02-04 06:09] LABS: Glucose,Whole Blood 134 mg/dL (70-110)
[2024-02-04 07:48] VITALS: BP 123/71; PULSE 61
[2024-02-04] MEDS: INSULIN DETEMIR (LEVEMIR) 100 UNIT/ML SYR SQ SCH (08:08)
[2024-02-04] MEDS: FAMOTIDINE 20 MG TAB PO SCH (08:10)
[2024-02-04] MEDS: ASPIRIN 81 MG PO SCH (08:10)
[2024-02-04] MEDS: PIOGLITAZONE 15 MG TAB PO SCH (08:10)
--- NOTE | 2024-02-05 19:38 | P.DS ---
Providers Attending physician: Zach Garland Primary care physician: [facility] Course: Mylene came in for evaluation management of atrial fibrillation. However she was found to be in a tachycardia with RVR that was regular. She spontaneously converted when she came to the EP lab She underwent a diagnostic EP study which revealed AV macho reentry that would degenerate into atrial fibrillation Therefore her A-fib ablation was canceled Slow pathway ablation was performed successfully Following that on and off Isopril, AVNRT could not be reinduced Atrial fibrillation could not be induced However for monitoring for A-fib, a loop monitor was implanted She will continue Eliquis for now She is doing well postprocedure [place] [facility] well heart sounds are normal Breath sounds are clear Blood pressures 119/67 mmHg I have stopped metoprolol now Impression AV macho reentrant tachycardia which is her clinical arrhythmia Degenerates into atrial fibrillation Currently on Eliquis Type 2 diabetes hypertension dyslipidemia Status post AVNRT ablation Status post implantation of loop monitor to monitor for A-fib Based on the results of the loop monitor further decisions regarding A-fib management will be made She will see Dr. Wells in follow-up Stop metoprolol Plan - Discharge Summary Discharge Rx Participant: No New Discharge Prescriptions: Continue metFORMIN HCL [Glucophage] 1,000 mg PO BID Famotidine [Pepcid] 20 mg PO DAILY #30 tab amLODIPine [Norvasc] 5 mg PO BID Apixaban [Eliquis] 5 mg PO BID Pioglitazone [Actos] 15 mg PO DAILY Nitroglycerin Sl Tabs [Nitrostat] 0.4 mg SL Q5M PRN PRN Reason: Chest Pain Cholecalciferol [Vitamin D3 (25 Mcg = 1000 Iu)] 25 mcg PO DAILY Acetaminophen/Diphenhydramine [Tylenol PM 500-25mg] 0.5 tab PO HS Aspirin 81 mg PO DAILY tab Atorvastatin [Lipitor] 80 mg PO HS 30 Days #30 tab Insulin Glargine,Hum.rec.anlog [Lantus Solostar Pen] 10 units SQ DAILY Discontinued Metoprolol Succinate [Toprol Xl] 50 mg PO BID Discharge Medication List metFORMIN HCL [Glucophage] 1,000 mg PO BID 10/31/15 [History] Famotidine [Pepcid] 20 mg PO DAILY #30 tab 02/24/18 [Rx] amLODIPine [Norvasc] 5 mg PO BID 05/26/18 [History] Apixaban [Eliquis] 5 mg PO BID 07/24/21 [History] Nitroglycerin Sl Tabs [Nitrostat] 0.4 mg SL Q5M PRN 12/15/22 [History] Pioglitazone [Actos] 15 mg PO DAILY 12/15/22 [History] Acetaminophen/Diphenhydramine [Tylenol PM 500-25mg] 0.5 tab PO HS 07/31/23 [History] Cholecalciferol [Vitamin D3 (25 Mcg = 1000 Iu)] 25 mcg PO DAILY 07/31/23 [His tory] Aspirin 81 mg PO DAILY tab 08/01/23 [Rx] Atorvastatin [Lipitor] 80 mg PO HS 30 Days #30 tab 08/01/23 [Rx] Insulin Glargine,Hum.rec.anlog [Lantus Solostar Pen] 10 units SQ DAILY 01/30/24 [History] Follow up Appointment(s)/Referral(s): Zach Garland MD [STAFF PHYSICIAN] - 02/12/24 4:00 pm (DEVICE CLINIC APPOINTMENT ) Wesley Wells MD [STAFF PHYSICIAN] - 02/16/24 1:45 pm (Keeping previous scheduled appointment due to Dr Zhang schedule ) Activity/Diet/Wound Care/Special Instructions: Post EP study - Ablation instructions 1. Keep access sites dry for 2 days. 2. No heavy lifting or straining for 2 days. 3. Avoid bending the hips repeatedly for 2 days. 4. You may go up and down stairs slowly 5. If you have had an ablation for atrial fibrillation or atrial flutter and are on a blood thinner, do not stop the blood thinner even temporarily for 3 months post ablation Call if the following is noted 1. Bleeding, increasing swelling or pain at the access sites. 2. Increasing chest discomfort, especially upon taking a deep breath. 3. Increasing shortness of breath, at rest or with exertion. 4. Undue cough / phlegm 5. Difficulty or pain while swallowing. 6. Pain or change in color in the extremities. 7. Fever, chills, rigors. 8. Increasing headache or neurologic symptoms. 9. Dizziness, fainting, palpitations Keep dressing on the pectoral area dry status post loop implant Hold metoprolol for now Continue all other medications including Eliquis Discharge Disposition: HOME SELF-CARE
== END 2024-02-04 11:27 | disposition home or self-care (01) ==
LOC: CATHEP 09:27 → 6NMEDSUR 15:00 → CATHEP 02-04 11:27
PROVIDERS: ATTEND Internal Medicine Clinical Cardiac Electrophysiology
DX: I48.0 Paroxysmal atrial fibrillation (principal); I47.19 Other supraventricular tachycardia; I25.10 Atherosclerotic heart disease of native coronary artery without angina pectoris; I10 Essential (primary) hypertension; E78.5 Hyperlipidemia, unspecified; E11.9 Type 2 diabetes mellitus without complications; Z87.891 Personal history of nicotine dependence; Z79.84 Long term (current) use of oral hypoglycemic drugs; Z88.6 Allergy status to analgesic agent; Z88.8 Allergy status to other drugs, medicaments and biological substances; Z88.2 Allergy status to sulfonamides
CPT/HCPCS: 93623; 93662; 93653; 33285; 86900; 86901; 80053; 84443; 85025; 86850; C1894; C1769; C1760; C1764; C1730 ×3; C1759; C1766; C1732; J0330; J2405; J2003; J3010; J1644 ×2; J0690; J2704; J2371 ×2

== ENCOUNTER → 2024-09-14 | Outpatient (CLI) | payer MEDICARE ==
--- NOTE | 2024-09-14 10:44 | MM ---
Reason for Exam: Screening (asymptomatic). Last mammogram was performed 1 year(s) and 1 month(s) ago. Patient History: Menarche at age 11. First Full-Term at age 19. Left ovary removed at age 39. Right ovary removed at age 39. Hysterectomy at age 39. Postmenopausal. Estrogen for 15 years until age 54. Patient used Hormonal Contraceptives for 6 years. Excisional Biopsy on the Left side. 08/13/2021, Benign Core Biopsy on the right side. 08/13/2021, Benign Core Biopsy on the right side. Risk Values: Colette 5 year model risk: 2.4%. NCI Lifetime model risk: 5.1%. Prior Study Comparison: 02/21/2022 Right MG 3D diag mammo w/cad RT, [facility]. 08/23/2022 Bilateral MG 3D diag mammo w/cad LIANET, [facility]. 08/25/2023 Bilateral MG 3D screening mammo w/cad, [facility]. Tissue Density: There are scattered areas of fibroglandular density. Findings: Analyzed By CAD. There are multiple small benign-appearing round calcifications scattered throughout bilateral breasts. There is a loop recorder posteriorly in the left breast partially imaged. There is no suspicious group of microcalcifications or new suspicious mass in either breast. Overall Assessment: Benign, BI-RAD 2 Management: Screening Mammogram of both breasts in 1 year. . Patient should continue monthly self-breast exams. A clinical breast exam by your physician is recommended on an annual basis. This exam should not preclude additional follow-up of suspicious palpable abnormalities. Note on Colette scores and lifetime risk: 1. A Colette score greater than 3% is considered moderate risk. If this is the case, consider specialist referral to assess eligibility for a risk reducing agent. 2. If overall lifetime risk for the development of breast cancer is 20% or higher, the patient may qualify for future screening with alternating mammogram and breast MRI. [facility], , 09/14/2024 10:42 AM. Electronically signed and approved by: Justino Mcghee M.D.
== END | disposition home or self-care (01) ==
LOC: RADMAMWWP 09:37
PROVIDERS: ATTEND Family Medicine
DX: Z12.31 Encounter for screening mammogram for malignant neoplasm of breast (principal); R92.323 Mammographic fibroglandular density, bilateral breasts; Z78.0 Asymptomatic menopausal state; Z92.0 Personal history of contraception
CPT/HCPCS: 77063; 77067